=== PATIENT | female | born 1950 | race Caucasian/White ===

== ENCOUNTER 2024-08-28 12:53 | Outpatient (CLI) | payer MEDICARE, SELFPAY | END 2024-08-28 12:54 | disposition home or self-care (01) | LOC: AMB 08-31 09:22 | PROVIDERS: Visit Provider Family Medicine | DX: R55 Syncope and collapse (principal) | CPT/HCPCS: A0425; A0427 ==

== ENCOUNTER 2024-08-28 13:38 | Emergency (ER) | payer MEDICARE, SELFPAY ==
[2024-08-28] VITALS (25 sets, daily range): BP systolic 99–189; BP diastolic 87–122; PULSE 100–140; RESP 12–23; TEMP 36.6; O2SAT 93–100; BMI 25.8
--- NOTE | 2024-08-28 14:05 | ED.SYNCOPE ---
HPI - Syncope General Time Seen by Provider: 14:06 Date Seen: 08/28/24 Chief Complaint: Syncope/Fainted Stated Complaint: AFIB Time Seen by Provider: 08/28/24 14:05 Source: patient, EMS and RN notes reviewed Mode of arrival: EMS Limitations: no limitations History of Present Illness HPI narrative: This 73-year-old female is brought in by EMS after syncopal episodes. Patient was at a restaurant in leaving when she became syncopal, friends lowered her to the ground. EMS found the patient to be alert an oriented, no symptoms. When the assisted her to standing, she again became syncopal. She notes no symptoms, no chest pain no sense of palpitations, has no sense of any arrhythmia. On arrival to the ER she was in atrial fibrillation rate anywhere from 100-130. She denies any symptoms at rest, no lightheadedness, no shortness of breath, no palpitations or chest pains. She does state that she will get lightheaded and dizzy whenever she stands up, has had fainting spells from this prior in her history. She states it is worse now since they placed her on amlodipine. She is post to get an eye injection tomorrow. She has a history of central retinal vein occlusion with macular edema in her right eye, gets intravitreal injections. She is scheduled to get a knee replacement I believe she said next week at [facility]. Did review outside records and she has osteoarthritis of both knees, hypertensive chronic kidney disease, peripheral neuropathy. She also reports 1 episode years ago, maybe over 10 years ago of atrial fibrillation but this was accompanying a thyroid storm. She does not know what the underlying etiology of her thyroid problem was, does not know foot was Graves disease or Anna's thyroiditis but she states that she did get radioactive iodine ablation (presumably this is what she had done as she states they killed her thyroid). She is now on thyroid replacement. She has not been sick with anything that would cause GI losses for electrolyte imbalance, will drink occasional alcohol but nothing daily. Related Data Home Medications ?Medication ?Instructions ?Recorded ?Confirmed acetaminophen 325 mg capsule 1,300 mg PO DAILY PRN 08/28/24 08/28/24 amlodipine 5 mg tablet 5 mg PO DAILY 08/28/24 08/28/24 atorvastatin 20 mg tablet 20 mg PO DAILY 08/28/24 08/28/24 calcium carbonate (Antacid Ext Str 300 mg PO TID PRN 08/28/24 08/28/24 (calcium carb)) gabapentin 100 mg capsule 200 mg PO TID 08/28/24 08/28/24 lactase 3,000 unit tablet 3,000 unit PO QID PRN 08/28/24 08/28/24 levothyroxine 88 mcg capsule 88 mcg PO DAILY 08/28/24 08/28/24 lisinopril 40 mg tablet 40 mg PO DAILY 08/28/24 08/28/24 mecobalamin (vitamin B12) 1,000 1,000 mcg PO DAILY 08/28/24 08/28/24 mcg chewable tablet (B12 Active) Allergies Allergy/AdvReac Type Severity Reaction Status Date / Time amoxicillin Allergy Rash Verified 08/28/24 16:29 Review of Systems Status of ROS: Reports: 6 or more systems reviewed and unremarkable except as noted in History and below [facility] Medical History (Updated 08/28/24 @ 18:21 by Dania Ghotra MD) Osteoarthritis ?M19.90 - Unspecified osteoarthritis, unspecified site (ICD-10) Hypertension ?I10 - Essential (primary) hypertension (ICD-10) Central retinal vein occlusion of right eye ?H34.8112 - Central retinal vein occlusion, right eye, stable (ICD-10) Social History Smoking Status: Unknown if ever smoked Exam Const: Vital Signs, click to edit/add: Vital Signs - 24 hr 08/28/24 13:51 08/28/24 13:52 08/28/24 13:58 Temperature 97.9 F Pulse Rate 139 H 140 H Pulse Rate [Pulse Oximeter] 120 H Pulse Rate [orthos tatic lying Left P ulse Oximeter] Pulse Rate [orthos tatic sitting Left Pulse Oximeter] Pulse Rate [orthos tatic standing Lef t Pulse Oximeter] Respiratory Rate 23 18 Blood Pressure Blood Pressure [Ri ght Upper Arm] 189/88 H Blood Pressure [or thostatic lying Ri ght Arm] Blood Pressure [or thostatic sitting Right Arm] Blood Pressure [or thostatic standing Right Arm] Pulse Oximetry 100 99 98 Oxygen Delivery Me thod Room Air 08/28/24 14:00 08/28/24 14:02 08/28/24 14:15 Temperature Pulse Rate 114 H 131 H Pulse Rate [Pulse Oximeter] Pulse Rate [orthos tatic lying Left P ulse Oximeter] Pulse Rate [orthos tatic sitting Left Pulse Oximeter] Pulse Rate [orthos tatic standing Lef t Pulse Oximeter] Respiratory Rate 16 Blood Pressure Blood Pressure [Ri ght Upper Arm] Blood Pressure [or thostatic lying Ri ght Arm] Blood Pressure [or thostatic sitting Right Arm] Blood Pressure [or thostatic standing Right Arm] Pulse Oximetry 98 97 98 Oxygen Delivery Me thod 08/28/24 14:15 08/28/24 14:39 08/28/24 14:45 Temperature Pulse Rate 133 H 125 H 116 H Pulse Rate [Pulse Oximeter] Pulse Rate [orthos tatic lying Left P ulse Oximeter] Pulse Rate [orthos tatic sitting Left Pulse Oximeter] Pulse Rate [orthos tatic standing Lef t Pulse Oximeter] Respiratory Rate 13 23 Blood Pressure Blood Pressure [Ri ght Upper Arm] Blood Pressure [or thostatic lying Ri ght Arm] Blood Pressure [or thostatic sitting Right Arm] Blood Pressure [or thostatic standing Right Arm] Pulse Oximetry 98 98 94 Oxygen Delivery Me thod 08/28/24 14:46 08/28/24 15:02 08/28/24 15:15 Temperature Pulse Rate 119 H 128 H 121 H Pulse Rate [Pulse Oximeter] Pulse Rate [orthos tatic lying Left P ulse Oximeter] Pulse Rate [orthos tatic sitting Left Pulse Oximeter] Pulse Rate [orthos tatic standing Lef t Pulse Oximeter] Respiratory Rate 18 15 14 Blood Pressure 99/87 113/87 Blood Pressure [Ri ght Upper Arm] Blood Pressure [or thostatic lying Ri ght Arm] Blood Pressure [or thostatic sitting Right Arm] Blood Pressure [or thostatic standing Right Arm] Pulse Oximetry 97 97 97 Oxygen Delivery Me thod Room Air 08/28/24 15:32 08/28/24 15:55 08/28/24 15:58 Temperature Pulse Rate 118 H Pulse Rate [Pulse Oximeter] Pulse Rate [orthos tatic lying Left P ulse Oximeter] 129 H Pulse Rate [orthos tatic sitting Left Pulse Oximeter] 136 H Pulse Rate [orthos tatic standing Lef t Pulse Oximeter] Respiratory Rate 13 Blood Pressure 132/99 H Blood Pressure [Ri ght Upper Arm] Blood Pressure [or thostatic lying Ri ght Arm] 132/102 H Blood Pressure [or thostatic sitting Right Arm] 135/107 H Blood Pressure [or thostatic standing Right Arm] Pulse Oximetry 98 Oxygen Delivery Me thod Room Air 08/28/24 16:00 08/28/24 16:02 08/28/24 16:32 Temperature Pulse Rate 135 H 123 H Pulse Rate [Pulse Oximeter] Pulse Rate [orthos tatic lying Left P ulse Oximeter] Pulse Rate [orthos tatic sitting Left Pulse Oximeter] Pulse Rate [orthos tatic standing Lef t Pulse Oximeter] 136 H Respiratory Rate 19 Blood Pressure 134/122 H 129/90 H Blood Pressure [Ri ght Upper Arm] Blood Pressure [or thostatic lying Ri ght Arm] Blood Pressure [or thostatic sitting Right Arm] Blood Pressure [or thostatic standing Right Arm] 119/93 H Pulse Oximetry 98 96 Oxygen Delivery Wy thod Room Air 08/28/24 17:02 08/28/24 17:32 08/28/24 18:02 Temperature Pulse Rate 108 H 123 H 111 H Pulse Rate [Pulse Oximeter] Pulse Rate [orthos tatic lying Left P ulse Oximeter] Pulse Rate [orthos tatic sitting Left Pulse Oximeter] Pulse Rate [orthos tatic standing Lef t Pulse Oximeter] Respiratory Rate 17 12 15 Blood Pressure 124/100 H 133/106 H 139/110 H Blood Pressure [Ri ght Upper Arm] Blood Pressure [or thostatic lying Ri ght Arm] Blood Pressure [or thostatic sitting Right Arm] Blood Pressure [or thostatic standing Right Arm] Pulse Oximetry 96 93 99 Oxygen Delivery Wy thod Room Air Room Air Room Air 08/28/24 18:10 08/28/24 18:11 08/28/24 18:32 Temperature Pulse Rate 107 H 111 H 100 Pulse Rate [Pulse Oximeter] Pulse Rate [orthos tatic lying Left P ulse Oximeter] Pulse Rate [orthos tatic sitting Left Pulse Oximeter] Pulse Rate [orthos tatic standing Lef t Pulse Oximeter] Respiratory Rate 12 18 Blood Pressure 138/121 H 130/117 H Blood Pressure [Ri ght Upper Arm] Blood Pressure [or thostatic lying Ri ght Arm] Blood Pressure [or thostatic sitting Right Arm] Blood Pressure [or thostatic standing Right Arm] Pulse Oximetry 98 98 99 Oxygen Delivery Wy thod Room Air Room Air 08/28/24 19:02 08/28/24 20:54 Temperature 97.9 F Pulse Rate 110 H Pulse Rate [Pulse Oximeter] 104 H Pulse Rate [orthos tatic lying Left P ulse Oximeter] Pulse Rate [orthos tatic sitting Left Pulse Oximeter] Pulse Rate [orthos tatic standing Lef t Pulse Oximeter] Respiratory Rate 14 18 Blood Pressure 131/96 H Blood Pressure [Ri ght Upper Arm] 140/108 H Blood Pressure [or thostatic lying Ri ght Arm] Blood Pressure [or thostatic sitting Right Arm] Blood Pressure [or thostatic standing Right Arm] Pulse Oximetry 97 96 Oxygen Delivery Me thod Room Air Room Air Amandeep is alert, interactive, no apparent distress. She is actually hypertensive and tachycardic on arrival. Pupils equal round reactive, sclera clear, extraocular muscles intact, symmetrical facial function, speech normal. Neck supple, no adenopathy, no noted jugular venous distension. She is able sit up, lungs are clear, good air entry, no wheezing or crackles, no tachypnea, no accessory muscle use. CV is irregular, rapid, do not hear any murmur. She is in atrial fibrillation with rapid ventricular response about 120s to 130s when I am in with her. Abdomen is soft, nontender, nondistended, no organomegaly. Moving arms and legs, no focal neurologic deficits noted. No edema noted over lower extremities. Documenting provider has reviewed patient's vital signs: yes Course Course ED Course: Patient will be on cardiac monitoring, pulse oximetry. She has an IV in the left antecubital fossa. Will give her L of IV fluids, give her a dose of 5 mg IV metoprolol. Will check full complement of labs come get portable chest x-ray but I see no physical stigmata of congestive heart failure at this time. She has no idea that she is in this rhythm, thus, we have no time frame for the length of her atrial fibrillation. Reviewed with her that she is not a candidate for cardioversion here. I do not think she requires this emergently. It sounds as if her syncope has been present in the form of potential orthostatic hypotension with getting up proceeding today. We did review that atrial fibrillation is a stroke risk and anticoagulation would be indicated. She does not want this as she is supposed to have an ortho pubic procedure with knee replacement coming up very shortly. I did review with her that they most certainly are not going to take her to surgery with atrial fibrillation with RVR. She does go through [facility], can talk to [facility] eventually. Reevaluation(s) Time of Reevaluation #1: 15:11 Reevaluation #1: Patient was just up to go to the bathroom, states she felt great. Back on cardiac monitoring after walking to and from the bathroom, patient's heart rate was up to 147. Again, she states she feels great. Will give oral dose of metoprolol 25 mg. Her heart rate is trending down quite quickly after getting back from the bathroom. Time of Reevaluation #2: 15:29 Reevaluation #2: Have reviewed with patient that her D-dimer is elevated. She is resting comfortably in bed in exam room 8, heart rate anywhere from low 100s up to 120s. She does agree to a chest CT PE protocol. Consultations Consultation #1: Have called triage center at [facility]. Spoke with Promise MAHARAJ. Patient has not established with Cardiology there before, reviewed with her that she now has a new diagnosis where she will need Cardiology. I do need to speak with the excavator backhoe operator. She gets her cares through [facility]. I have tried to press as much as I can that I need to speak with Cardiology and should be allowed to as this patient is well established there even is she has not required cardiology in the recent past. We are faxing EKG as she requested. 5:12 p.m.: I have spoken with Promise the RN at [facility], she has called me back. They were on Cardiology divert at [place]. She has spoken with the excavator backhoe operator at [facility], the excavator backhoe operator does accept the patient but has declined consult with me. They have vast staff to fax records and we will get a phone call from the hospitalist at [facility]. I subsequently did talk to the patient and expressed my sincere unhappiness with this situation. She will need transfer where her records are complete and Cardiology can be consulted. We reviewed her thyroid medication may need adjustment, will defer to them. 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 It is nonocclusive. I am going to wait to talk to the hospitalist from [facility] before anticoagulation and see their recommendations, hopefully the be able to look in the records and see about this I injection that needs to happen. Will await their input. Will give her another dose of oral metoprolol as her heart rate is still in the low 1 100s. Blood pressure is holding, she remains asymptomatic. 5:57 p.m.: [facility] transfer center did call back and I spoke with Dr. Sim from [facility]. Did review her case, he stated that she had a DVT in 2022 I believe, was on Xarelto. We discussed anticoagulation. He requested heparin tonight, did order the heparin PE protocol. We discussed her current vitals, heart rate is in the 80s currently, a systolic blood pressure 138. I will continue with p.r.n. management with metoprolol, did review her TSH and will let them follow up on that. I do not believe she needs any emergent intervention for this mildly elevated TSH, reviewed that a free T3 is a send out for us and thus with her transferring, will not be ordering that. Did subsequently review heparin with patient, reviewed plans for transfer. Time: 15:32 Vital Signs Vital signs: Initial Vital Signs Pulse Rate 139 H 08/28/24 13:51 Respiratory Rate 08/28/24 13:51 Pulse Oximetry 100 08/28/24 13:51 Vital Signs Pulse Rate 139 H 08/28/24 13:51 Respiratory Rate 23 08/28/24 13:51 Pulse Oximetry 100 08/28/24 13:51 Temperature 97.9 F 08/28/24 20:54 Pulse Rate 104 H 08/28/24 20:54 Respiratory Rate 18 08/28/24 20:54 Blood Pressure 140/108 H 08/28/24 20:54 Pulse Oximetry 96 08/28/24 20:54 Oxygen Delivery Method Room Air 08/28/24 20:54 Medications Administered Medications: Discontinued Medications Generic Name Dose Route Start Last Admin Trade Name Freq PRN Reason Stop Dose Admin Heparin Sodium (Porcine) 6,500 unit 08/28/24 18:03 08/28/24 19:05 Heparin 5,000 Unit/0.5 Ml Inj 80 unit/kg (6500 unit) 08/28/24 18:04 Not Given IVP ONCE ONE Heparin Sodium (Porcine) 7,300 unit 08/28/24 18:23 08/28/24 18:27 Heparin 5,000 Unit/0.5 Ml Inj 80 unit/kg (7300 unit) 08/28/24 18:24 7,300 unit IVP Administration ONCE ONE Sodium Chloride 1,000 mls @ 500 mls/hr 08/28/24 14:24 08/28/24 15:50 0.9 % Sodium Chloride 1000 Ml IV 08/28/24 16:23 Infused .Q2H BRANDIE Infusion Heparin Sodium/Dextrose 25,000 unit in 500 mls @ 0 mls/hr 08/28/24 18:30 08/28/24 18:26 Heparin IV 1,500 unit/hr .Q0M BRANDIE 30 mls/hr Protocol Administration Per Protocol Metoprolol Tartrate 5 mg 08/28/24 14:23 08/28/24 14:42 Metoprolol Tartrate 1 Mg/Ml Inj IVP 08/28/24 14:24 5 mg ONCE ONE Administration Metoprolol Tartrate 25 mg 08/28/24 15:11 08/28/24 15:16 Metoprolol Tartrate 25 Mg Tablet PO 08/28/24 15:12 25 mg ONCE ONE Administration Metoprolol Tartrate 5 mg 08/28/24 16:27 08/28/24 16:35 Metoprolol Tartrate 1 Mg/Ml Inj IVP 08/28/24 16:28 5 mg ONCE ONE Administration Metoprolol Tartrate 25 mg 08/28/24 17:28 08/28/24 18:02 Metoprolol Tartrate 25 Mg Tablet PO 08/28/24 17:29 25 mg ONCE ONE Administration MDM - Syncope Lab Data Attestation: I reviewed the patient's lab results. Labs: Lab Results 08/28/24 Range/Units 14:27 WBC 6.76 (4.50-11.00) K/uL RBC 4.39 (4.00-5.20) m/uL Hgb 14.2 (12.0-16.0) gm/dL Hct 44.3 (33.0-51.0) % MCV 101 H (80-100) fL MCH 32 (26-34) pg MCHC 32 (32-36) gm/dL RDW Coeff of Miladys 11.9 (11.5-15.5) % Plt Count 236 (140-440) K/uL Neut % (Auto) 66.9 (42.0-72.0) % Lymph % (Auto) 23.4 (20-44) % [place] % (Auto) 7.8 (0.0-11.0) % Eos % (Auto) 1.2 (0.0-7.0) % Baso % (Auto) 0.4 (0.0-3.0) % Neut # (Auto) 4.52 (1.7-7.0) K/uL Lymph # (Auto) 1.58 (0.90-2.90) K/uL [place] # (Auto) 0.50 (0.00-0.90) K/UL Eos # (Auto) 0.08 (0.00-0.50) K/uL Baso # (Auto) 0.03 (0.00-0.30) K/uL Abs Immat Gran (auto) 0.02 (0.00-0.30) K/uL Imm/Tot Granulo (auto) 0.3 % INR 1.05 (0.91-1.10) APTT 24 (23-33) Seconds D-Dimer Quant (PE/DVT) 1.75 H (0.00-0.50) ug/ml Sodium 142 (135-149) mmol/L Potassium 4.4 (3.6-5.1) mmol/L Chloride 108 (96-114) mmol/L Carbon Dioxide 25 (20-32) mmol/L Anion Gap 9 (7-15) mEq/L BUN 19 (7-30) mg/dL Creatinine 1.0 (0.5-1.5) mg/dL Estimated Creat Clear 53.37 Estimated GFR 59 ml/min Glucose 115 (60-115) mg/dL Lactate 1.7 (0.5-1.9) mmol/L Calcium 9.6 (8.4-10.6) mg/dL Magnesium 2.2 (1.5-2.6) mg/dL Total Bilirubin 0.7 (0.1-1.5) mg/dL AST 35 (12-35) U/L ALT 15 (4-35) U/L Alkaline Phosphatase 61 (40-150) U/L Troponin I 0.02 (0.01-0.04) ng/mL NT-Pro-B Natriuret Pep 3690 pg/mL Total Protein 7.5 (6.0-8.3) g/dL Albumin 4.4 (3.3-5.0) g/dL TSH 0.188 L (0.270-4.200) uIU/mL Free T4 1.43 (0.70-1.85) ng/dL Ethyl Alcohol < 0.01 (0.01-0.03) % Imaging Data Chest x-ray: Attestation: I have reviewed the pertinent imaging results. My impression: I do not appreciate any acute congestive changes on my preliminary review. Radiologist's impression: Patient: AMANDEEP HARPER Facility:?[facility] Patient ID:?[id number] Site Patient ID:?[id number]. Site :?1950 Study:?XRay-Chest PORTABLE-08/28/2024 2:54:04 PM Ordering Physician:Azul Najera Final Report: INDICATION: : AFIB WITH RVR COMPARISON: None TECHNIQUE: One view(s) of the chest FINDINGS: The cardiomediastinal silhouette and pulmonary vasculature are unremarkable. There is no focal airspace consolidation, pleural effusion, or pneumothorax. No displaced fractures. IMPRESSION: No acute cardiopulmonary process. Dictated by Geronimo Soto MD @ 08/28/2024 3:00:55 PM (Electronic Signature) CT scan - head: Attestation: I have reviewed the pertinent imaging results. Radiologist's impression: Patient: AMANDEEP HARPER Facility:?[facility] Patient ID:?[id number] Site Patient ID:?[id number]. Site :?1950 Study:?CT-Head WITHOUT-08/28/2024 2:47:52 PM Ordering Physician:?DR. DUNN Final Report: INDICATION: SYNCOPE TECHNIQUE: CT of the head was performed without IV contrast. COMPARISON: None. FINDINGS: Parenchyma: No acute hemorrhage, infarction, or mass. Moderate confluent periventricular white matter hypoattenuation is nonspecific and is favored to represent chronic small vessel ischemic disease. Chronic appearing bilateral basal ganglia lacunar infarcts. Ventricles and extra-axial spaces: Appropriate for age. Visualized paranasal sinuses: Clear. Mastoid air cells: Clear. Bones: No focal abnormality. Additional comment: None. IMPRESSION: No acute intracranial abnormality. Please note that all CT scans at this facility use dose modulation, iterative reconstruction, and/or weight-based dosing when appropriate to reduce radiation dose to as low as reasonably achievable. Dictated by Hilton Rojas MD @ 08/28/2024 3:01:15 PM (Electronic Signature) CT scan - chest: Attestation: I have reviewed the pertinent imaging results. Radiologist's impression: Patient: AMANDEEP HARPER Facility:?[facility] Patient ID:?[id number] Site Patient ID:?[id number]. Site :?1950 Study:?CT-Chest Angio PE 95CC ISOVUE 370-08/28/2024 4:02:30 PM Ordering Physician:Azul Najera Final Report: INDICATION: Syncope. Elevated D-dimer. Atrial fibrillation. TECHNIQUE: CT chest pulmonary angiogram acquired with 95 cc of Isovue 370 IV contrast. Sagittal, coronal and maximum intensity projection reformatted images submitted for review. COMPARISON: None. FINDINGS: Cardiovascular structures: Small amount of subsegmental nonocclusive right lower lobe pulmonary embolus, for example on axial image 133 of series 4. Aortic atherosclerosis and tortuosity. Thoracic aorta is normal in caliber. Coronary artery calcifications. Heart size is within normal limits. Mediastinum and belinda: No pathologic lymphadenopathy. Lungs: No pneumothorax. Central airways are patent. Posterior right lower lobe 12 mm nodular density on image 167 of series 4. Bibasilar scarring or atelectasis. Lungs otherwise clear. Pleura and pericardium: No effusions. Chest wall and axilla: Unremarkable. Bones: Degenerative changes. No acute or suspicious osseous abnormality. Upper abdomen: Diverticulosis of the visualized colon. Visualized upper abdomen is otherwise unremarkable. IMPRESSION: 1. Small amount of subsegmental right lower lobe pulmonary embolus. 2. Right lower lobe 12 mm nodule should be further evaluated with chest CT in [address] Morales by telephone at 4:33 p.m. on 08/28/2024. Dictated by Wilber Barrientos MD @ 08/28/2024 4:35:06 PM Please note that all CT scans at this facility use dose modulation, iterative reconstruction, and/or weight-based dosing when appropriate to reduce radiation dose to as low as reasonably achievable. Dictated by: Wilber Barrientos MD @ 08/28/2024 16:35:35 (Electronic Signature) ECG Data Attestation: I personally reviewed and interpreted this ECG as follows: (Atrial fibrillation with rapid ventricular response, 124 beats per minute. No active ischemic change noted.) ECG interpretation date: 08/28/24 ECG interpretation time: 13:55 Prior ECG tracings: not available for review Discharge Plan Discharge Clinical Impression: Pulmonary embolism, Atrial fibrillation with rapid ventricular response, Syncope Patient Disposition: [facility] Additional Instructions: Patient transferring to [facility]
--- NOTE | 2024-08-28 14:15 | CT_ITS ---
Patient: AMANDEEP HARPER Facility:?[facility] Patient ID:?[id number] Site Patient ID:?[id number]. Site :?1950 Study:?CT-Head WITHOUT-08/28/2024 2:47:52 PM Ordering Physician:?DR. DUNN Final Report: INDICATION: SYNCOPE TECHNIQUE: CT of the head was performed without IV contrast. COMPARISON: None. FINDINGS: Parenchyma: No acute hemorrhage, infarction, or mass. Moderate confluent periventricular white matter hypoattenuation is nonspecific and is favored to represent chronic small vessel ischemic disease. Chronic appearing bilateral basal ganglia lacunar infarcts. Ventricles and extra-axial spaces: Appropriate for age. Visualized paranasal sinuses: Clear. Mastoid air cells: Clear. Bones: No focal abnormality. Additional comment: None. IMPRESSION: No acute intracranial abnormality. Please note that all CT scans at this facility use dose modulation, iterative reconstruction, and/or weight-based dosing when appropriate to reduce radiation dose to as low as reasonably achievable. Dictated by Hilton Rojas MD @ 08/28/2024 3:01:15 PM Signed by:?Hilton Rojas MD @08/28/2024 3:01:15 PM (Electronic Signature)
--- NOTE | 2024-08-28 14:15 | CRLHL7_ITS ---
For Patients: As a result of the Cures Act, medical imaging exams and procedure reports are released immediately into your electronic medical record. You may view this report before your referring provider. If you have questions, please contact your health care provider. INDICATION: : AFIB WITH RVR COMPARISON: None TECHNIQUE: One view(s) of the chest FINDINGS: The cardiomediastinal silhouette and pulmonary vasculature are unremarkable. There is no focal airspace consolidation, pleural effusion, or pneumothorax. No displaced fractures. IMPRESSION: No acute cardiopulmonary process. Dictated by Geronimo Soto MD @ 08/28/2024 3:00:55 PM (Electronically Signed)
[2024-08-28 14:35] LABS: Lactate* 1.7 mmol/L (0.5-1.9)
[2024-08-28] MEDS: METOPROLOL TARTRATE 1 MG/ML inj 5 MG IVP ×2 (14:42→16:35)
[2024-08-28] MEDS: 0.9 % SODIUM CHLORIDE 1000 ml 1,000 ML 500 ML IV (14:42)
--- OUTSIDE RECORDS SUMMARY | 2024-08-28 14:42 | XMS_ITS | Encounter Summary ---
Author Organization [facility] Address [address] [place] [address] Care Team Prov[address] Care Road Machine Operator Name Role Phone Qian Carias M.D. Primary Care Provider [phone] Reason for Referral * Physical Therapy (Routine) - Authorized Specialty Diagnoses / Procedures Referred By Contac t Referred To Contact Diagnoses Primary Osteoarthritis Knee Right Procedures PT Evaluate and treat Savanna Hough P.A.-C., P.A. [address] [place] [address] Phone: tel: fax: [facility] Region Referral ID Status Reason Start Date Expiration Date V isits Requested Visits Authorized [id number] Authorized 07/18/2024 10/18/2025 1 1 * Outpatient (Routine) - Authorized Specialty Diagnoses / Procedures Referred By Contac t Referred To Contact Anesthesiology Diagnoses Primary Osteoarthritis Knee Right Savanna Hough P.A.-C., P.A. [address] [place] [address] Phone: tel: fax: [facility] Region Referral ID Status Reason Start Date Expiration Date V isits Requested Visits Authorized [id number] Authorized 07/18/2024 01/17/2026 1 1 * Outpatient (Routine) - Closed Specialty Diagnoses / Procedures Referred By Contac t Referred To Contact Family Medicine Diagnoses Primary Osteoarthritis Knee Right Savanna Hough P.A.-C., P.A. [address] [place] [address] Phone: tel: fax: [facility] Region Referral ID Status Reason Start Date Expiration Date Visits Re quested Visits Authorized [id number] Closed 07/18/2024 01/17/2026 1 1 * Outpatient (Routine) - Authorized Specialty Diagnoses / Procedures Referred By Contac t Referred To Contact Orthopedic Surgery Savanna Hough P.A.-C., P.A. [address] [place] [address] Phone: tel: fax: [facility] Region Referral ID Status Reason Start Date Expiration Date V isits Requested Visits Authorized [id number] Authorized 07/18/2024 01/17/2026 1 1 * Specialty Diagnoses / Procedures Referred By Contac t Referred To Contact Diagnoses Primary Osteoarthritis Knee Right Savanna Hough P.A.-C., P.A. [address] [place] [address] Phone: tel: fax: [facility] Region Referral ID Status Reason Start Date Expiration Date Visits Re quested Visits Authorized Scheduling Instructions Anticipated Surgery Date is 09/05/24. If schedulers are having a hard time finding class availability and/or patient needs an director of rehabilitation and wellness, call [phone] to assist with scheduling. Reason for Visit * Reason Comments Pain Pain * Outpatient (Routine) - Closed Specialty Diagnoses / Procedures Referred By Contdaksha t Referred To Contact Orthopedic Surgery Savanna Hough P.A.-C., P.A. [address] [place] [address] Phone: tel: fax: [facility] Region Referral ID Status Reason Start Date Expiration Date Visits Re quested Visits Authorized [id number] Closed 04/18/2024 10/18/2025 1 1 Encounter Details Date Type Department Care Team (Late st Contact Info) Description 07/18/2024 11:00 AM CDT Office Visit Department of Orthopedic Surgery in [place], [place] [address] [place] [phone] Savanna Hough P.A.-C., P.A. [address] [place] [address] Primary Osteoarthritis Knee Right (Primary Dx); Primary Osteoarthritis Knee Left Discharge Disposition: Home or Self Care Social History Tobacco Use Types Packs/Day Years Used Date Smoking Tobacco: Never Smokeless Tobacco: Never Tobacco Cessation:Counseling Given: Not Answered Alcohol Use Standard Drinks/Week Comments Yes 1 (1 standard drink = 0.6 oz pur e alcohol) 0-1/week [facility] Utilities Answer Date Recorded In the past 12 months has [employer], gas, oil, or water [employer] threatened to shut off services in your home? No 11/01/2023 Humiliation, Afraid, Rape, and Kick questionnair e Answer Date Recorded Within the last year, have y ou been afraid of your partner or ex-partner? No 11/16/2020 Within the last year, have y ou been humiliated or emotionally abused in other ways by your partner or ex-partner? No Within the last year, have y ou been kicked, hit, slapped, or otherwise physically hurt by your partner or ex-partner? No 11/16/2020 Within the last year, have y ou been raped or forced to have any kind of sexual activity by your partner or ex-partner? No 11/16/2020 Social Connection and Isolat ion Panel [NHANES] Answer Date Recorded In a typical week, how many times do you talk on the phone with family, friends, or neighbors? Once a week 11/16/2020 How often do you get togethe r with friends or relatives? More than three times a week 11/16/2020 How often do you attend chur or baptism services? More than 4 times per year 11/16/2020 Do you belong to any clubs o r organizations such as episcopal groups, unions, fraternal or athletic groups, or school groups? Yes 11/16/2020 How often do you attend meet ings of the clubs or organizations you belong to? Patient declined 11/16/2020 Are you , , di vorced, , never , or living with a partner? 11/16/2020 AUDIT-C Answer Date Recorded Q1: How often do you have a drink containing alc ohol? 2-4 times a month 11/16/2020 Q2: How many drinks containi ng alcohol do you have on a typical day when you are drinking? 1 or 2 11/16/2020 Q3: How often do you have si x or more drinks on one occasion? Never 11/16/2020 Overall Financial Resource Strain (CARDIA) Answe r Date Recorded How hard is it for you to pa y for the very basics like food, housing, medical care, and heating? Not hard at all 11/16/2020 PHQ-2 Answer Date Recorded PHQ-2 Score 0 07/08/2024 [facility] [place] of Occupat ional Health - Occupational Stress Questionnaire Answer Date Recorded Do you feel stress - tense, restless, nervous, or anxious, or unable to sleep at night because your mind is troubled all the time - these days? Not at all 11/16/2020 Exercise Vital Sign Answer Date Recorde d On average, how many days pe r week do you engage in moderate to strenuous exercise (like a brisk walk)? 3 days 11/01/2023 On average, how many minutes do you engage in exercise at this level? 30 min 11/01/2023 Hunger Vital Sign Answer Date Recorded Within the past 12 months, y ou worried that your food would run out before you got the money to buy more. Never true 11/01/19 Within the past 12 months, t he food you bought just didn't last and you didn't have money to get more. Never true 11/01/2023 PRAPARE - Transportation Answer Date Re corded In the past 12 months, has l ack of transportation kept you from medical appointments or from getting medications? No 10/11 In the past 12 months, has l ack of transportation kept you from meetings, work, or from getting things needed for daily living? No 11/01/2023 Nutrition Answer Date Recorded On average, how many serving s of fruits and vegetables do you eat per day (serving size is equal to 1 cup or approximately the size of a tennis ball)? 3-5 11/01/2023 Dental Answer Date Recorded Dental: Regular Dentist Yes 04/08/20 Employment Answer Date Recorded Employment status Retired 11/01/2023 Housing Stability Answer Date Recorded What is your living situation today? I have a [facility] place to live 11/01/2023 Education Answer Date Recorded What is the highest level of school you have completed or the highest degree you have received? Some college, no degree 11/07/2018 Comments No Sex and Gender Information Value Date Recorded Sex Assigned at Female 04/09/2017 3:29 PM FIRMWARE TEST ENGINEER Legal Sex Female 8:40 AM FIRMWARE TEST ENGINEER Gender Identity Female 04/09/2017 3:29 PM FIRMWARE TEST ENGINEER Sexual Orientation Straight 04/09/2017 3: 29 PM FIRMWARE TEST ENGINEER documented as of this encounter Progress Notes * Savanna Hough P.A.-Carmel., P.A. - 07/18/2024 11:00 AM CDT DATE OF VISIT: 07/18/2024 SUBJECTIVE CHIEF COMPLAINT / REASON FOR VISIT Soraya Alexandra is a 73 y.o. female who presents for evaluation of Pain of the Right Knee and Pain of the Left Knee. The patient verbally consented to an audio recording of their visit to assist with the completion of documentation. History of Present Illness Mrs. Soraya Alexandra is a 73 year old female with bilateral knee arthritis who presents with persistent knee pain. She is accompanied by her , Omar. She was referred by Dr. Hinojosa for evaluation of her knee arthritis. She experiences persistent pain in both knees, with the last set of injections providing only aboutthree weeks of relief. There is significant arthritis behind the kneecap, affecting daily activities such as walking and navigating stairs in her split-entry home. She has difficulty getting in and out of vehicles and rising from seated positions due to the low height of chairs and toilets, which exacerbates her knee pain. Historically, the right knee was worse, but currently, the left knee is causing more pain. Over time, the right knee has been more problematic. She manages symptoms with injections, but relief is short-lived due to worn cartilage behind the kneecap. She has a history of neuropathy and is concerned it might affect her recovery. She has upcoming neurology appointments on August 01 and August 15 for further evaluation, including EMGs. Additionally, she experiences sores on her legs that appear randomly and develop into deep sores ifbumped. These sores have been treated with hydrocolloid bandages, which help in healing without significant scarring. She recalls a previous surgery for a lipoma removal from her knee, which involved a large scar and significant recovery. She has had issues with pain control in the past, particularly with hydrocodone, which caused nausea and vomiting, but she tolerated oxycodone well during her lipoma surgery. OBJECTIVE VITAL SIGNS There were no vitals taken for this visit. Physical Exam Physical Exam MUSCULOSKELETAL: Right knee flexion 120 degrees, full extension. Pain with terminal flexion. No instability Left knee: Well healed long medial surgical scar. Maintains full flexion- extension with pain with terminal flexion and the anterior aspect of the knee varus and valgus stress negative no instability DIAGNOSTICS IMAGING X-rays reviewed with patient: 11/02/2023 RAD - Routine (most inpatients and all outpatients) Narrative & Impression EXAM: DX KNEE BILATERAL 3 VIEWS IMPRESSION: Right knee: No fracture or dislocation. Mild degenerative changes. No substantial effusion. Left knee: No fracture or dislocation. Mild degenerative changes. No substantial effusion ASSESSMENT / PLAN Bilateral knee osteoarthritis Significant patellar arthritis with advanced cartilage degeneration. Conservative treatments exhausted. Knee replacement surgery recommended. Explained risks including anesthesia complications, infection, damage to vessels, tendons, nerves, persistent pain, stiffness, hardware failure, and potential need for manipulation. Surgery duration with same-day discharge if healthy. Postoperative therapy recommended. Patient motivated for surgery with Dr. Hinojosa, right total knee arthroplasty - Schedule knee replacement surgery with Dr. Hinojosa. -We discussed the preoperative intraoperative and postoperative course. We discussed the risks of surgery which include but are not limited to infection, damage to vessels tendons and nerves resulting in temporary or permanent loss of function, ongoing problems with pain and stiffness, recurrence, scar tissue formation, failure of surgery requiring repeat surgery. -We discussed the risks of anesthesia which include but are not limited to heart attack, , stroke, pneumonia, blood clots. Patient expresses understanding and wishes to proceed with surgery.- - She has an EMG and some ABIs pending and depending on those results might change her surgery date. We will await recommendations by primary care. - Use oxycodone for postoperative pain management, considering past tolerance. Peripheral neuropathy Affects sensation without significant gait or motor issues. Not expected to affect knee surgery recovery. Upcoming neurology appointments for further evaluation. - Attend neurology appointments on August 01 and August 15 for further evaluation of neuropathy. Leg sores Intermittent sores currently healed. Potential circulation issues require investigation before kneesurgery. - Investigate circulation issues with potential brachial arterial indices before knee replacement surgery. Assessment & Plan Bilateral knee osteoarthritis Significant patellar arthritis with advanced cartilage degeneration. Conservative treatments exhausted. Knee replacement surgery recommended. Explained risks including anesthesia complications, infection, damage to vessels, tendons, nerves, persistent pain, stiffness, hardware failure, and potential need for manipulation. Surgery duration 90 minutes with same-day discharge if healthy. Postoperative therapy crucial. Patient motivated for surgery with Dr. Hinojosa. - Schedule knee replacement surgery with Dr. Hinojosa. - Arrange postoperative physical therapy 1-2 times weekly. - Use oxycodone for postoperative pain management, considering past tolerance. Peripheral neuropathy Affects sensation without significant gait or motor issues. Not expected to affect knee surgery recovery. Upcoming neurology appointments for further evaluation. - Attend neurology appointments on August 01 and August 15 for further evaluation of neuropathy. Leg sores Intermittent sores currently healed. Potential circulation issues require investigation before kneesurgery. - Investigate circulation issues with potential brachial arterial indices before knee replacement surgery. :[id number]:::1} documented in this encounter Plan of Treatment Upcoming Encounters Date Type Department Care Team (Latest Contact Info) Description 08/29/2024 10:45 AM CDT Virtual Visit Preoperative Evaluation Center in [address] [phone] Savanna Hough P.A.-C., P.A. [address] [place] [phone] Discharge Disposition: Home or Self Care 08/29/2024 3:40 PM CDT Ancillary Procedure Department of Ophthalmology in [place], [place] [address] [place] [address] 08/29/2024 4:00 PM CDT Hospital Encounter Outpatient Procedure Center in [place], [place] [address] [place] [address] Rohan Pleitez M.D. [address] [place] [phone] 08/30/2024 3:00 PM CDT Telemedicine Department of Patient Education in [place], [place] [address] [place] [address] Savanna Hough P.A.-C., P.A. [address] [place] [phone] 09/05/2024 7:30 AM CDT Hospital Encounter Outpatient Procedure Center in [address] [phone] Adrian Hinojosa D.O. [address] [place] [address] 09/05/2024 7:30 AM CDT Anesthesia Event Outpatient Procedure Center in [address] [phone] Radha Crawford M.D. [address] [place] [phone] 09/05/2024 7:30 AM CDT - 09/05/2024 9:53 AM CDT Surgery Outpatient Procedure Center in [address] [phone] Adrian Hinojosa D.O. [address] [place] [phone] ARTHROPLASTY REPLACEMENT TOTAL KNEE 09/11/2024 12:30 PM CDT Comprehensive Visit Department of Physical Medicine and Rehabilitation in [address] [place] [address] Savanna Hough P.A.-C., P.A. [address] [place] [phone] Keke Alexandra, P.TJovany [address] [place] [phone] 09/18/2024 10:00 AM CDT Office Visit Department of Orthopedic Surgery in [address] [phone] Savanna Hough P.A.-C., P.A. [address] [place] [phone] Discharge Disposition: Home or Self Care 09/28/2024 11:00 AM CDT Appointment Outpatient Procedure Center in [address] [phone] Rohan Pleitez M.D. [address] [place] [address] 11/03/2024 9:20 AM CDT Appointment Department of Laboratory Medicine in [place] [address] [place] [address] Qian Carias M.D. [address] [place] [address] 11/06/2024 2:40 PM CDT Comprehensive Visit Department of Family Medicine, [facility], in [place] [address] [place] [address] Qian Carias M.D. [address] [place] [address] 11/22/2024 1:30 PM CDT Comprehensive Visit Department of Neurology in [place], [place] [address] [place] [phone] Stuart Bernabe M.D. [address] [place] [address] Scheduled Procedures Name Priority Associated Diagnoses Date/Ti me ARTHROPLASTY REPLACEMENT TOTAL KNEE Primary Osteoarthritis Knee Right 09/05/2024 7:30 AM CDT Scheduled Referrals Name Type Priority Associated Diagnoses Orde r Schedule Patient Education - Total Joint (Hip or Knee) Replacement Education Visit (Clinic) Outpatient Referral Routine Primary Osteoarthritis Knee Right Expected: 07/18/2024, Expires: 10/17/2025 Orthopedic Surgery Post Op (clinic) Outpatient Referral Routine Expected: 09/19/2024, Expires: 08/02/2025 Primary Care - [facility] consult (clinic) Outpatient Referral Routine Primary Osteoarthritis Knee Right 1 Occurrences starting 07/18/2024 until 10/17/2025 Pre Operative Evaluation [facility] nurse consult (clinic) Outpatient Referral Routine Primary Osteoarthritis Knee Right 1 Occurrences starting 07/18/2024 until 10/17/2025 documented as of this encounter Visit Diagnoses Diagnosis Primary Osteoarthritis Knee Right- Primary Primary Osteoarthritis Knee Left Primary Osteoarthritis Knee Right- Primary Primary Osteoarthritis Knee Right documented in this encounter Care Teams Road Machine Operator Relationship Specialty Start Date End Date Qian Carias M.D. [address] [place] [phone] PCP - General Internal Medicine 12/28/17 documented as of this encounter
--- OUTSIDE RECORDS SUMMARY | 2024-08-28 14:42 | XMS_ITS | Encounter Summary ---
Author Organization [facility] Address [address] [place] [address] Care Team Providers Care Casket Upholsterer Name Role Phone Qian Carias M.D. Primary Care Provider [phone] Encounter Details Date Type Department Care Team (Latest Contact Info) Description 07/17/2024 Results Follow-Up Department of Family Medicine, [facility], in [place], [place] [address] [place] [address] Post, Mark Scott APRN, C.N.P. [address] [place] [phone] ECG 12 Lead, CBC with Differential, Blood, Comprehensive Metabolic Panel, Additional followed-up results: 9 Social History Tobacco Use Types Packs/Day Years Used Date Smoking Tobacco: Never Smokeless Tobacco: Never Alcohol Use Standard Drinks/Week Comments Yes 1 (1 standard drink = 0.6 oz pur e alcohol) 0-1/week [facility] Utilities Answer Date Recorded In the past 12 months has [employer], gas, oil, or water company threatened to shut off services in your [...] How often do you attend chur or buddhism services? More than 4 times per year 11/16/2020 Do you belong to any clubs o r organizations such as zoroastrian groups, unions, fraternal or athletic groups, or [...] Answer Date Recorded PHQ-2 Score 0 07/08/2024 [facility] [place] of Occupat ional Health - Occupational Stress [...] your living situation today? I have a [facility] place to live 11/01/2023 Education Answer Date Recorded What is the highest level of school you have completed or the highest degree you have received? Some college, no degree 11/07/2018 Comments No Sex and Gender Information Value Date Recorded Sex Assigned at Female 04/09/2017 3:29 PM TECHNOLOGY TRAINER Legal Sex Female 8:40 AM TECHNOLOGY TRAINER Gender Identity Female 04/09/2017 3:29 PM TECHNOLOGY TRAINER Sexual Orientation Straight 04/09/2017 3: 29 PM TECHNOLOGY TRAINER documented as of this encounter Plan of Treatment Upcoming Encounters Date Type Department Care Team (Latest Contact Info) Description 08/29/2024 10:45 AM CDT Virtual Visit Preoperative Evaluation Center in [address] [phone] Savanna Hough P.A.-C., P.A. [address] [place] [phone] Discharge Disposition: Home or Self Care 08/29/2024 3:40 PM CDT Ancillary Procedure Department of Ophthalmology in [place], [place] [address] [place] [address] 08/29/2024 4:00 PM CDT Hospital Encounter Outpatient Procedure Center in [place], [place] [address] [place] [address] Rohan Pleitez M.D. [address] [place] [phone] 08/30/2024 3:00 PM CDT Telemedicine Department of Patient Education in [place], [place] [address] [place] [phone] Savanna Hough P.A.-C., P.A. [address] [place] [phone] 09/05/2024 7:30 AM CDT Hospital Encounter Outpatient Procedure Center in [address] [phone] Adrian Hinojosa D.O. [address] [place] [phone] 09/05/2024 7:30 AM CDT Anesthesia Event Outpatient Procedure Center in [address] [phone] Radha Crawford M.D. [address] [place] [phone] 09/05/2024 7:30 AM CDT - 09/05/2024 9:53 AM CDT Surgery Outpatient Procedure Center in [address] [phone] Adrian Hinojosa D.O. [address] [place] [address] ARTHROPLASTY REPLACEMENT TOTAL KNEE 09/11/2024 12:30 PM CDT Comprehensive Visit Department of Physical Medicine and Rehabilitation in [place] [address] [place] [address] Savanna Hough P.A.-C., P.A. [address] [place] [phone] Keke Alexandra, P.T. [address] [place] [phone] 09/18/2024 10:00 AM CDT Office Visit Department of Orthopedic Surgery in [place], [place] [address] [place] [phone] Savanna Hough P.A.-C., P.A. [address] [place] [phone] Discharge Disposition: Home or Self Care 09/28/2024 11:00 AM CDT Appointment Outpatient Procedure Center in [address] [phone] Rohan Pleitez M.D. [address] [place] [address] 11/03/2024 9:20 AM CDT Appointment Department of Laboratory Medicine in [place], [place] [address] [place] [phone] Qian Carias M.D. [address] [place] [phone] 11/06/2024 2:40 PM CDT Comprehensive Visit Department of Family Medicine, [facility], in [address] [place] [address] Qian Carias M.D. [address] [place] [phone] 11/22/2024 1:30 PM CDT Comprehensive Visit Department of Neurology in [place], [place] [address] [place] [phone] Stuart Bernabe M.D. [address] [place] [phone] Scheduled Procedures Name Priority Associated Diagnoses Date/Ti me ARTHROPLASTY REPLACEMENT TOTAL KNEE Primary Osteoarthritis Knee Right 09/05/2024 7:30 AM CDT documented as of this encounter Visit Diagnoses Not on filedocumented in this encounter Care Teams Casket Upholsterer Relationship Specialty Start Date End Date Qian Carias M.D. [address] [place] [phone] PCP - General Internal Medicine 12/28/17 documented as of this encounter
--- OUTSIDE RECORDS SUMMARY | 2024-08-28 14:42 | XMS_ITS | Encounter Summary ---
Author Organization [facility] Address [address] [place] [address] Care Team Providers Care [employer] Manager Name Role Phone Qian Carias M.D. Primary Care Provider [phone] Encounter Details Date Type Department Care Team (Latest Contact Info) Description 06/30/2024 Clinical Communication Department of Ophthalmology in [place], [place] [address] [place] [address] Rohan Pleitez M.D. [address] [place] [phone] Social History Tobacco Use Types Packs/Day Years Used Date Smoking Tobacco: Never Smokeless Tobacco: Never Alcohol Use Standard Drinks/Week Comments Yes 1 (1 standard drink = 0.6 oz pur e alcohol) 0-1/week [facility] Utilities Answer Date Recorded In the past [address], gas, oil, or water [employer] threatened to shut off services in your [...] How often do you attend chur or mandaeism services? More than 4 times per year 11/16/2020 Do you belong to any clubs o r organizations such as protestant groups, unions, fraternal or athletic groups, or [...] Answer Date Recorded PHQ-2 Score 0 07/08/2024 [facility] [place] [facility] Occupat ional [facility] - Occupational Stress [...] money to buy more. Never true 11/01/19 24 Within the past 12 months, t he [...] your living situation today? I have a [facility] place to live 11/01/2023 Education Answer Date Recorded What is the highest level of school you have completed or the highest degree you have received? Some college, no degree 11/07/2018 Comments No Sex and Gender Information Value Date Recorded Sex Assigned at Female 04/09/2017 3:29 PM [employer] Legal Sex Female 8:40 AM [employer] Gender Identity Female 04/09/2017 3:29 PM [employer] Sexual Orientation Straight 04/09/2017 3: 29 PM [employer] documented as of this encounter Plan of Treatment Upcoming Encounters Date Type Department Care Team (Latest Contact Info) Description 08/29/2024 10:45 AM CDT Virtual Visit Preoperative Evaluation Center in [place], [place] [address] [place] [phone] Savanna Hough P.A.-C., P.A. [address] [place] [phone] Discharge Disposition: Home or Self Care 08/29/2024 3:40 PM CDT Ancillary Procedure Department of Ophthalmology in [place], [place] [address] [place] [address] 08/29/2024 4:00 PM CDT Hospital Encounter Outpatient Procedure Center in [place], [place] [address] [place] [address] Rohan Pleitez M.D. [address] [place] [phone] 08/30/2024 3:00 PM CDT Telemedicine Department of Patient Education in [place], [place] [address] [place] [phone] Savanna Hough P.A.-C., P.A. [address] [place] [phone] 09/05/2024 7:30 AM CDT Hospital Encounter Outpatient Procedure Center in [address] [phone] Adrian Hinojosa D.O. [address] [place] [address] [phone] 09/05/2024 7:30 AM CDT Anesthesia Event Outpatient Procedure Center in [address] [phone] Radha Crawford M.D. [address] [place] [phone] 09/05/2024 7:30 AM CDT - 09/05/2024 9:53 AM CDT Surgery Outpatient Procedure Center in [address] [phone] Adrian Hinojosa D.O. [address] [place] [phone] ARTHROPLASTY REPLACEMENT TOTAL KNEE 09/11/2024 12:30 PM CDT Comprehensive Visit Department of Physical Medicine and Rehabilitation in [place] [address] [place] [phone] Svaanna Hough P.A.-C., P.A. [address] [place] [phone] Keke Alexandra P.TJovany [address] [place] [phone] 09/18/2024 10:00 AM CDT Office Visit Department of Orthopedic Surgery in [address] [phone] Savanna Hough P.A.-C., P.A. [address] [place] [phone] Discharge Disposition: Home or Self Care 09/28/2024 11:00 AM CDT Appointment Outpatient Procedure Center in [address] [phone] Rohan Pleitez M.D. [address] [place] [phone] 11/03/2024 9:20 AM CDT Appointment Department of Laboratory Medicine in [place] [address] [place] [phone] Qian Carias M.D. [address] [place] [phone] 11/06/2024 2:40 PM CDT Comprehensive Visit Department of Family Medicine, [facility], in [place] [address] [place] [phone] Qian Carias M.D. [address] [place] [phone] 11/22/2024 1:30 PM CDT Comprehensive Visit Department of Neurology in [place], [place] [address] [place] [phone] Stuart Bernabe M.D. [address] [place] [phone] Scheduled Procedures Name Priority Associated Diagnoses Date/Ti me ARTHROPLASTY REPLACEMENT TOTAL KNEE Primary Osteoarthritis Knee Right 09/05/2024 7:30 AM CDT documented as of this encounter Visit Diagnoses Not on filedocumented in this encounter Care Teams [employer] Manager Relationship Specialty Start Date End Date Qian Carias M.D. [address] [place] [phone] PCP - General Internal Medicine 12/28/17 documented as of this encounter
--- OUTSIDE RECORDS SUMMARY | 2024-08-28 14:42 | XMS_ITS | Clinical Summary ---
Author Organization [facility] Address [address] [place] [address] Care Team Providers Care Apns Name Role Phone Qian Carias M.D. Primary Care Provider Source Comments Patient records contain information from all sites at [facility]. For routine questions regarding patient records, call [phone] during business hours, M-F 8:00 AM - 5:00 PM Central Time. Record requests for emergency care only can be directed to [phone] at any time.[facility] Allergies Active Allergy Reactions Criticality Noted Date Comments Amoxicillin Hives (Reselect Reaction) 06/24/2010 House Dust Mite Other (see comments) 10/31/2010 No reaction noted in Cerner Medications calcium carbonate (for_TUMS E-X) 750 mg (300 mg calcium) chewable tablet Chew 1 tablet daily as needed. Active acetaminophen (TYLENOL 8 HR) 650 mg ER tablet Take 1,300 mg by mouth daily as needed for pain. Active lactase (Lactaid) 3,000 Unit tablet Take 6,000 Units by mouth daily. Active lisinopriL 40 mg tabletIndication s:Hypertension And Chronic Kidney Disease Stage 3 (HCC) Take 1 tablet (40 mg total) by mouth daily. 90 tablet 3 4 Active gabapentin (Neurontin) 100 mg capsule Take 2 capsules (200 mg total) by mouth 3 (three) times a day. 540 capsule 3 4 Active atorvastatin (Lipitor) 20 mg tablet Take 1 tablet (20 mg total) by mouth daily. 90 tablet 3 4 Active levothyroxine 88 mcg tabletIndication s:Hypothyroidism Post Radio Iodine Take 1 tablet (88 mcg total) by mouth daily. 90 tablet 3 4 Active amLODIPine (Norvasc) 5 mg tabletIndication s:Hypertensive Chronic Kidney Disease With Stage 1 Through Stage 4 Chronic Kidney Disease, Or Unspecified Chronic Kidney Disease Take 1 tablet (5 mg total) by mouth daily. 90 tablet 3 5 Active cyanocobalamin (vitamin B-12) 1,000 mcg tablet Take 1,000 mcg by mouth daily. 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) 1 drop right eye As needed 07/31/2024 07/30/2025 Active balanced salt solution ophthalmic irrigation 30 mL (BSS)Indications:C entral Retinal Vein Occlusion With Macular Edema Right (HCC) 30 mL right eye As needed 07/31/2024 07/30/2025 Active carboxymethylcellu lose 1 % ophthalmic solution 1 drop (TheraTears)Indica tions: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) 1 drop right eye As needed 07/31/2024 07/30/2025 Active povidone-iodine 5 % ophthalmic solution 1 drop (Betadine)Indicati ons: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) 1 drop right eye As needed 07/31/2024 07/30/2025 Active proparacaine 0.5 % ophthalmic solution 1 drop (Alcaine)Indicatio ns: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) 1 drop right eye As needed 07/31/2024 07/30/2025 Active bevacizumab intraocular injection 1.25 mg (Avastin)Indicatio ns: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 Please review for accuracy Thrombosis Deep Vein Personal History 11/01/2023 Osteoporosis 11/01/2023 Overview (11/01/2023): T-score -2.6 at hip January 29, 2022. Alendronate recommended, patient declines for now. 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 Neuropathy Peripheral; Pain Leg Bilateral Discharge Disposition: Home or Self Care 08/08/2024 3:20 PM CDT Office Visit Department of Family Medicine, [facility], in [address] [place] [address] Qian Carias M.D. 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 Neuropathy Peripheral; Pain Leg Bilateral; Osteoporosis Discharge Disposition: Home or Self Care 08/01/2024 9:50 AM CDT - 08/01/2024 9:52 AM CDT Hospital Encounter Department of Radiology in [address] [phone] Jarred Steward APRN, C.N.P. Edema Pedal; Unspecified Open Wound Left Lower Leg Sequela; Unspecified Open Wound Right Lower Leg Sequela; Pain Leg Bilateral Discharge Disposition: Home or Self Care 07/31/2024 4:06 PM CDT - 07/31/2024 11:59 PM CDT Hospital Encounter Outpatient Procedure Center in [place], [place] [address] [place] [phone] Keyana Gimenez M.D. Discharge Disposition: Home or Self Care 07/31/2024 3:50 PM CDT - 07/31/2024 4:05 PM CDT Hospital Encounter Outpatient Procedure Center in [place], [place] [address] [place] [address] Rohan Pleitez M.D. 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 Intravitreal Injection, Pharmacologic Agent - OD - Right Eye 07/31/2024 Ancillary Procedure Department of Ophthalmology 07/27/2024 3:20 PM CDT Ancillary Procedure Department of Ophthalmology 07/27/2024 2:45 PM CDT Ancillary Procedure Department of Ophthalmology in [place], [place] [address] [place] [phone] Rohan Pleitez M.D. 07/27/2024 2:30 PM CDT Procedure visit Department of Ophthalmology in [place], [place] [address] [place] [phone] Rohan Pleitez M.D. Adelmann, Lavergne S, C.O.A. 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 Screening Mammogram Breast Cancer 07/18/2024 11:00 AM CDT Office Visit Department of Orthopedic Surgery in [address] [phone] Savanna Hough P.A.-C., P.A. Primary Osteoarthritis Knee Right (Primary Dx); Primary Osteoarthritis Knee Left Discharge Disposition: Home or Self Care 07/18/2024 Clinical Communication Department of Orthopedic Surgery in [address] [phone] Savanna Hough P.A.-C., P.A. Surgical Listing (Ortho ) 07/17/2024 Results Follow-Up Department of [facility] Medicine, [facility], in [place] [address] [place] [phone] Post, Jarred Scott APRN, C.N.P. ECG 12 Lead, CBC with Differential, Blood, Comprehensive Metabolic Panel, Additional followed-up results: 9 07/13/2024 11:30 AM CDT Office Visit Department of Family Medicine, [facility], in [place] [address] [place] [phone] Post, Jarred Scott APRN, C.N.P. Neuropathy Peripheral (Primary Dx); Hypertensive Chronic Kidney Disease With Stage 1 Through Stage 4 Chronic Kidney Disease, Or Unspecified Chronic Kidney Disease; Syncope; Edema Pedal; Unspecified Open Wound Left Lower Leg Sequela; Unspecified Open Wound Right Lower Leg Sequela; Pain Leg Bilateral; Osteoporosis Discharge Disposition: Home or Self Care 06/30/2024 8:45 AM CDT Office Visit Department of Ophthalmology in [address] [phone] Sacha Suárez M.D. 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 06/30/2024 Orders Only Department of Ophthalmology in [address] [phone] Rohan Pleitez M.D. 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 06/29/2024 10:18 AM CDT - 06/29/2024 11:58 AM CDT Emergency [facility] [address] [place] [address] Madan Moore M.D. Disturbance Visual (Primary Dx); Blurred Vision Discharge Disposition: Home or Self Care from Last 3 Months Immunizations Immunization Administration Dates Next Due PCV13 11/07/2018 PPSV23 11/19/2020,(Deferred: Patient decision) RZV (SHINGRIX) 11/19/2020(Deferred: Patient dec ision) SARS-COV-2 (COVID-19) - MODERNA(Discontinued) 02/27/2021,07/16/2020,06/13/2020 SARS-COV-2 (COVID-19) - PFIZ ER BIVALENT TS(Discontinued)(12 YEARS OR OLDER) 01/26/2022 Td (Adult), adsorbed 11/25/2007 Td Preservative Free (TENIVA C, DECAVAC) 04/12/2003 Tdap 10/08/2016 influenza trivalent high dos e (HD)(PF) 11/19/2020(Deferred: Patient decision) Family History Medical History Relation Name Comments Lung cancer Aunt maternal COPD Brother 1 Sheldon Coronary artery disease Brother 1 Sheldon Tobacco user Brother 1 Sheldon CABG - Coronary artery bypass graft Brother 2 Carlos No Known Problems Brother 3 Arthritis Father Amanuel Coronary artery disease Father Amanuel at 70 Arthritis Mother Kaylynn Briceno Asthma Mother Kaylynn Kaity Coronary artery disease Mother Kaylynn Briceno No Known Problems Sister 1 No Known Problems Sister 2 No Known Problems Sister 3 Melanoma Son 1 Linus No Known Problems Son 2 Melanoma Son 3 Gaudencio Lung cancer Uncle maternal Anesthesia problems Neg Hx Cataracts Neg Hx Corneal Dystrophy Neg Hx Glaucoma Neg Hx Macular degeneration Neg Hx Retinal degeneration Neg Hx Retinal detachment Neg Hx Strabismus Neg Hx Relation Name Status Comments Aunt maternal Brother 1 Sheldon Alive Brother 2 Carlos Alive Brother 3 Alive Brother 4 Freddy Alive Father Amanuel Mother Kaylynn Briceno Sister 1 Alive Sister 2 Alive Sister 3 Alive Son 1 Linus Alive Son 2 Alive Son 3 Gaudencio Alive Uncle maternal Social History Tobacco Use Types Packs/Day Years Used Date Smoking Tobacco: Never Smokeless Tobacco: Never Alcohol Use Standard Drinks/Week Comments Yes 1 (1 standard drink = 0.6 oz pur e alcohol) 0-1/week [facility] Utilities Answer Date Recorded In the past 12 months has th e electric, gas, oil, or water company threatened [...] 11/16/2020 How often do you attend chur ch or confucianism services? More than 4 times per year 11/16/2020 Do you belong to any clubs o r organizations such as methodist groups, unions, fraternal or athletic groups, or [...] Answer Date Recorded PHQ-2 Score 0 07/08/2024 [facility] of Occupat ional [facility] - Occupational Stress Questionnaire Answer Date Recorded [...] your living situation today? I have a [facility] place to live 11/01/2023 Education Answer Date Recorded What is the highest level of school you have completed or the highest degree you have received? Some college, no degree 11/07/2018 Comments No Sex and Gender Information Value Date Recorded Sex Assigned at Female 04/09/2017 3:29 PM GOLF CADDY Legal Sex Female 8:40 AM GOLF CADDY Gender Identity Female 04/09/2017 3:29 PM GOLF CADDY Sexual Orientation Straight 04/09/2017 3: 29 PM GOLF CADDY Last Filed Vital Signs Vital Sign Reading Time Taken Comments Blood Pressure 154/94 08/08/2024 3:04 PM CDT Pulse 60 08/08/2024 3:04 PM CDT Temperature 36.4 C (97.5 F) 08/08/2024 2:57 PM CDT Respiratory Rate 16 06/29/2024 10:27 AM CDT Oxygen Saturation 98% 06/29/2024 11:15 AM CDT Inhaled Oxygen Concentration - - Weight 91.3 kg (201 lb 4.5 oz) 08/08/2024 2:57 P M CDT Height 178 cm (5' 10.08) 08/08/2024 2:57 PM CDT Body Mass Index 28.82 08/08/2024 2:57 PM CDT Plan of Treatment Upcoming Encounters Date Type Department Care Team (Latest Contact Info) Description 08/29/2024 10:45 AM CDT Virtual Visit Preoperative Evaluation Center in [address] [phone] Savanna Hough P.A.-C., P.A. [address] [place] [phone] Discharge Disposition: Home or Self Care 08/29/2024 3:40 PM CDT Ancillary Procedure Department of Ophthalmology in [place], [place] [address] [place] [address] 08/29/2024 4:00 PM CDT Hospital Encounter Outpatient Procedure Center in [place], [place] [address] [place] [address] Rohan Pleitez M.D. [address] [place] [address] 08/30/2024 3:00 PM CDT Telemedicine Department of Patient Education in [place], [place] [address] [place] [address] Savanna Hough P.A.-C., P.A. [address] [place] [phone] 09/05/2024 7:30 AM CDT Hospital Encounter Outpatient Procedure Center in [address] [phone] Adrian Hinojosa D.O. [address] [place] [phone] 09/05/2024 7:30 AM CDT Anesthesia Event Outpatient Procedure Center in [address] [phone] Radha Crawford M.D. [address] [place] [phone] 09/05/2024 7:30 AM CDT - 09/05/2024 9:53 AM CDT Surgery Outpatient Procedure Center in [address] [phone] Adrian Hinojosa D.O. [address] [place] [phone] ARTHROPLASTY REPLACEMENT TOTAL KNEE 09/11/2024 12:30 PM CDT Comprehensive Visit Department of Physical Medicine and Rehabilitation in [address] [place] [address] Savanna Hough P.A.-C., P.A. [address] [place] [phone] Keke Alexandra P.T. [address] [place] [phone] 09/18/2024 10:00 AM CDT Office Visit Department of Orthopedic Surgery in [address] [phone] Savanna Hough P.A.-C., P.A. [address] [place] [phone] Discharge Disposition: Home or Self Care 09/28/2024 11:00 AM CDT Appointment Outpatient Procedure Center in [address] [phone] Rohan Pleitez M.D. [address] [place] [phone] 11/03/2024 9:20 AM CDT Appointment Department of Laboratory Medicine in [place] [address] [place] [phone] Qian Carias M.D. [address] [place] [phone] 11/06/2024 2:40 PM CDT Comprehensive Visit Department of Family Medicine, [facility], in [place] [address] [place], [place] [phone] Qian Carias M.D. [address] [place] [phone] 11/22/2024 1:30 PM CDT Comprehensive Visit Department of Neurology in [place], [place] [address] [place] [address] Stuart Bernabe M.D. [address] [place] [address] Scheduled Procedures Name Priority Associated Diagnoses Date/Ti me ARTHROPLASTY REPLACEMENT TOTAL KNEE Primary Osteoarthritis Knee Right 09/05/2024 7:30 AM CDT Health Maintenance Due Date Last Done Comments CT Colonography 1950 Cologuard 1950 FIT 1950 Visit: Medicare Annual Wellness 1950 Zoster Vaccines (1 of 2) 11/13/1999 Mammogram 12/27/2018 12/27/2017, 09/12, 03/18/2012 COVID-19 Vaccine ( season) 2023 01/26/2022, 02/27/2021, 07/16/2020, Additional history exists Influenza Vaccine (#1) 2024 Office Visit for Blood Pressure Check / Re-check 11/07/2024 08/08/2024, 08/07/2024, 08/07/2024 Thyroid Stimulating Hormone (TSH) test for thyroid function 03/13/2025 03/13/2024, 11/02/2023, 03/11/2023, Additional history exists Creatinine Level (Kidney Function Test) 07/13/2025 07/13/2024, 11/02/2023, 05/11/2022, Additional history exists Potassium Level 07/13/2025 07/13/2024, 10/11, 05/11/2022, Additional history exists Sodium Level 07/13/2025 07/13/2024, 10/11, 05/11/2022, Additional history exists Visit: Chronic Disease, age 18+ 08/08/2025 08/08/2024 DTaP,Tdap,and Td Vaccines (2 - Td or Tdap) 10/08/2026 10/08/2016, 11/25/2007, 04/12/2003 Fasting Glucose for Diabetes Screening 07/14/2027 07/13/2024, 11/02/2023, 05/11/2022, Additional history exists Colonoscopy 02/16/2028 02/15/2018, 12/19/2007 Colorectal Cancer Screening 02/16/2028 Hepatitis B Screening Discontinued 10/17/2014 Pneumococcal vaccine (50+ years) Completed 11/19/2020, 11/07/2018 Bone Density Scan (Osteoporosis Screen) Discontinued 01/28/2022 Depression Screening (Annual PHQ-2) Completed 07/13/2024 Fall Risk Screen (Annual) Completed 07/31/2024 IPV Vaccines Aged Out No longer eligi ble based on patient's age to complete this topic Medical Devices Implanted Type Area Firearms Model Maker Device Identifier Shelf Expiration Date Model / Serial / Lot Breast [employer] Smooth Gel 450cc - Ivy [id number] Implanted:Qty: 1 on 11/16/2005 Breast Implant Other/Legacy - See Implant Description [employer] Description:Device Manufactu rer - [employer]. Body Location - Other. Right. Device Status Text - [id number]. Breast [employer] Smooth Gel 450cc - Ivy [id number] Implanted:Qty: 1 on 11/16/2005 Breast Implant Other/Legacy - See Implant Description [employer] Description:Device Manufactu rer - [employer]. Body Location - Other. Left. Device Status Text - [id number]. Alloderm 6 X 12 - Ivy [id number] Implanted:Qty: 1 on 11/16/2005 Mesh or Patch Other/Legacy - See Implant Description [employer] (Use Allergan) Description:Device Manufactu rer - [employer]. Body Location - Other. Right. Device Status Text - [id number]. Alloderm 6 X 12 - Ivy [id number] Implanted:Qty: 1 on 11/16/2005 Mesh or Patch Other/Legacy - See Implant Description LifeCell Jay[employer]ob (Use Allergan) Description:Device Manufactu rer - [employer]. Body Location - Other. Left. Device Status Text - [id number]. Procedures Procedure Name Priority Date/Time Associated Diagnosis Comments EMG Routine 08/15/2024 9:53 AM CDT Neuropathy Peripheral Pain Leg Bilateral LOWER EXTREMITY ARTERIAL - STANDARD PROTOCOL Routine 08/01/2024 12:03 PM CDT Edema Pedal Unspecified Open Wound Left Lower Leg Sequela Unspecified Open Wound Right Lower Leg Sequela Pain Leg Bilateral DX LUMBAR SPINE 2-3 VIEWS RAD - Routine (most inpatients and all outpatients) 08/01/2024 10:52 AM CDT Neuropathy Peripheral Pain Leg Bilateral Osteoporosis INTRAVITREAL INJECTION, PHARMACOLOGIC AGENT - OD - RIGHT EYE Routine 07/31/2024 4:06 PM CDT 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) OPTICAL COHERENCE TOMOGRAPHY - MACULA/RETINA - OU - BOTH EYES Routine 07/31/2024 3:59 PM CDT 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) INTRAVITREAL INJECTION, PHARMACOLOGIC AGENT - OD - RIGHT EYE - RST GONDA SCHEDULING ORDER Routine 07/31/2024 3:58 PM CDT 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) OPHTHALMOLOGY IMAGE EXAM Routine 07/31/2024 12:00 AM CDT ANGIOGRAPHY - OU - BOTH EYES Routine 07/27/2024 3:40 PM CDT 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) OPHTHALMOLOGY IMAGE EXAM Routine 07/27/2024 3:20 PM CDT VITAMIN D, IMMUNOASSAY, TOTAL, S Routine 07/13/2024 12:17 PM CDT Hypertensive Chronic Kidney Disease With Stage 1 Through Stage 4 Chronic Kidney Disease, Or Unspecified Chronic Kidney Disease Neuropathy Peripheral Edema Pedal Unspecified Open Wound Left Lower Leg Sequela Unspecified Open Wound Right Lower Leg Sequela Pain Leg Bilateral NT-PRO B-TYPE NATRIURETIC PEPTIDE (BNP), S Routine 07/13/2024 12:17 PM CDT Hypertensive Chronic Kidney Disease With Stage 1 Through Stage 4 Chronic Kidney Disease, Or Unspecified Chronic Kidney Disease Neuropathy Peripheral Edema Pedal Unspecified Open Wound Left Lower Leg Sequela Unspecified Open Wound Right Lower Leg Sequela Pain Leg Bilateral VITAMIN B12 ASSAY, S Routine 07/13/2024 12:17 PM CDT Hypertensive Chronic Kidney Disease With Stage 1 Through Stage 4 Chronic Kidney Disease, Or Unspecified Chronic Kidney Disease Neuropathy Peripheral Edema Pedal Unspecified Open Wound Left Lower Leg Sequela Unspecified Open Wound Right Lower Leg Sequela Pain Leg Bilateral MAGNESIUM, S Routine 07/13/2024 12:17 PM CDT Hypertensive Chronic Kidney Disease With Stage 1 Through Stage 4 Chronic Kidney Disease, Or Unspecified Chronic Kidney Disease Neuropathy Peripheral Edema Pedal Unspecified Open Wound Left Lower Leg Sequela Unspecified Open Wound Right Lower Leg Sequela Pain Leg Bilateral IRON AND TOT IRON-BINDING CAPACITY, S/P Routine 07/13/2024 12:17 PM CDT Hypertensive Chronic Kidney Disease With Stage 1 Through Stage 4 Chronic Kidney Disease, Or Unspecified Chronic Kidney Disease Neuropathy Peripheral Edema Pedal Unspecified Open Wound Left Lower Leg Sequela Unspecified Open Wound Right Lower Leg Sequela Pain Leg Bilateral FERRITIN, S Routine 07/13/2024 12:17 PM CDT Hypertensive Chronic Kidney Disease With Stage 1 Through Stage 4 Chronic Kidney Disease, Or Unspecified Chronic Kidney Disease Neuropathy Peripheral Edema Pedal Unspecified Open Wound Left Lower Leg Sequela Unspecified Open Wound Right Lower Leg Sequela Pain Leg Bilateral COMPREHENSIVE METABOLIC PANEL, S/P Routine 07/13/2024 12:17 PM CDT Hypertensive Chronic Kidney Disease With Stage 1 Through Stage 4 Chronic Kidney Disease, Or Unspecified Chronic Kidney Disease Neuropathy Peripheral Edema Pedal Unspecified Open Wound Left Lower Leg Sequela Unspecified Open Wound Right Lower Leg Sequela Pain Leg Bilateral CBC WITH DIFFERENTIAL, B Routine 07/13/2024 12:17 PM CDT Hypertensive Chronic Kidney Disease With Stage 1 Through Stage 4 Chronic Kidney Disease, Or Unspecified Chronic Kidney Disease Neuropathy Peripheral Edema Pedal Unspecified Open Wound Left Lower Leg Sequela Unspecified Open Wound Right Lower Leg Sequela Pain Leg Bilateral ECG Routine 07/13/2024 12:05 PM CDT Hypertensive Chronic Kidney Disease With Stage 1 Through Stage 4 Chronic Kidney Disease, Or Unspecified Chronic Kidney Disease Edema Pedal Syncope OPTICAL COHERENCE TOMOGRAPHY - MACULA/RETINA - OU - BOTH EYES Routine 06/30/2024 9:37 AM CDT 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) CT HEAD WITHOUT IV CONTRAST RAD - Semiurgent (Fast; most ED patients; some inpatients) 06/29/2024 11:22 AM CDT THYROID-STIMULATING HORMONE-SENSITIVE (S-TSH) Routine 03/13/2024 10:21 AM GOLF CADDY Hypothyroidism Post Radio Iodine COLONOSCOPY 02/15/2018 2:39 PM GOLF CADDY BI BREAST SCREENING BILATERAL WITH TOMOSYNTHESIS RAD - Routine (most inpatients and all outpatients) 12/27/2017 10:57 AM CDT Screening Mammogram Average Risk Patient HEPATITIS B SURFACE ANTIGEN Routine 10/17/2014 8:40 AM CDT from Last 3 Months or Most Recently Relevant to Health Maintenance Results * EMG (08/15/2024 9:53 AM CDT) 08/15/2024 10:3 0 AM CDT Narrative [facility] EMG - 08/15/2024 11:33 AM CDT Table formatting from the original result was not included. 15-Aug-2024 Electromyography Final Report Study Number: 1 EMG Mammalogy Teacher: Gaurav Bernabe or [phone] Referred by: JARRED STEWARD () Referred for: PN BLE Referral Code: RX: 001 SUMMARY: Prior to starting the procedure, the patient's identity was verified, pertinent available records were reviewed, the nature of the procedure was explained, the appropriate sites of the exam were confirmed directly with the patient, and a pre-procedure pause was performed for final verification of all of the above. Nerve conduction studies of the left lower limb showed mildly low amplitude left fibular compound muscle action potential without focal conduction block present. There was no temporal dispersion present. F-waves were normal. Needle examination of the left lower limb was within normal limits. CLINICAL INTERPRETATION: There is no compelling electrophysiologic evidence of a length-dependent large fiber peripheral neuropathy or left lumbosacral radiculopathy on this study. The mildly low amplitude left fibular motor response is of doubtful clinical significance and may be related to intrinsic factors / prior trauma involving the left foot. N. Seven (127 or [phone]) NERVE CONDUCTIONS Record Rep Normal Normal Distal Normal F-Wave F-Wave Temp Nerve Type Site Stim Side Amp Amp CV CV Lat Lat Lat Est ( C) Fibular Motor EDB L 1.6 (> 2.0) 44 (> 41) 3.5 (< 6.6) 51.0 56.2 33.5 Tibial Motor AH L 4.0 (> 4.0) 48 (> 40) 4.0 (< 6.1) 53.8 52.3 32.1 Sural Sensory Ankle L 3 (> 0.0) 50 (> 40) 3.7 (< 4.5) 31.4 NEEDLE EMG Ins Spont MUP Recruitment Duration Amplitude Phases Muscle Side Act Fib Fasc Normal Activ Reduced Rapid Long Short High Low % Turns Gluteus ricardo L NL 0 0 NL Biceps femoris (long head) L NL 0 0 NL Vastus medialis L NL 0 0 NL Gastrocnemius (medial head) L NL 0 0 NL +/- Tibialis anterior L NL 0 0 NL First dorsal interosseous (pedis) L NL 0 0 ----- None Comment: unable to activate This interpretation has been electronically signed: Gaurav Bernabe M.D. at 08/15/2024 11:31:48 AM CDT Jarred Steward APRN, C.N.P. NEUROLOGY ORDERABLES Final Result [facility] EMG * LOWER EXTREMITY ARTERIAL - STANDARD PROTOCOL (08/01/2024 12:03 PM CDT) Anatomical Region Laterality Modality Ultrasound 08/01/2024 10:0 1 AM CDT Narrative 08/01/2024 12:30 PM CDT Right: Doppler Waveforms: Normal at all levels evaluated. Resting Index: GALDINO (PT)- 1.23 GALDINO (DP)- 1.11 TBI- 0.69 Left: Doppler Waveforms: Normal at all levels evaluated. Resting Index: GALDINO (PT)- 1.26 GALDINO (DP)- 0.99 TBI- 0.62 Conclusions: Both lower extremitieshave normal doppler waveform, normal ABIs and mildlyabnormal TBIs. No previous study for comparison. Procedure Note Dennis Denis M.D. - 08/01/2024 Right: Doppler Waveforms: Normal at all levels evaluated. RestingIndex: GALDINO (PT)- 1.23 GALDINO (DP)- 1.11 TBI- 0.69 Left: Doppler Waveforms: Normal at all levels evaluated. RestingIndex: GALDINO (PT)- 1.26 GALDINO (DP)- 0.99 TBI- 0.62 Conclusions: Both lower extremitieshave normal doppler waveform, normalABIs and mildlyabnormal TBIs. No previous study for comparison. us Jrared Steward APRN, C.N.P. CV VASCULAR PROCEDUR ES Final Result * DX Lumbar Spine 2-3 Views (08/01/2024 10:52 AM CDT) Anatomical Region Laterality Modality Lumbar Spine, Musculoskeleta l RST LOS, Neuroradiology ARZ LOS, Muskuloskeletal FLA LOS N/A Digital Radiography Impressions 08/01/2024 11:36 AM CDT No acute compression fracture. No listhesis. Minimal leftward coronal curvature. Multilevel disc height loss and endplate spurring greatest at L2-3. Multilevel facet arthropathy greatest in the lower lumbar spine. Narrative 08/01/2024 11:36 AM CDT EXAM: DX LUMBAR SPINE 2-3 VIEWS Procedure Note John Koch M.D. - 08/01/2024 EXAM: DX LUMBAR SPINE 2-3 VIEWS IMPRESSION: No acute compression fracture. No listhesis. Minimal leftward coronalcurvature. Multilevel disc height loss and endplate spurring greatest atL2-3. Multilevel facet arthropathy greatest in the lower lumbar spine. us Jarred Steward APRN, C.N.P. IMG DIAGNOSTIC IMAGI NG PROCEDURES Final Result * Intravitreal Injection, Pharmacologic Agent - OD - Right Eye (07/31/2024 4:06 PM CDT) Narrative Keyana Gimenez M.D. - 07/31/2024 4:38 PM CDT Pre-Procedure Verification Pre-procedure verification conducted to verify correct patient identity, procedure to be performed and, as applicable, correct side and site. Patient ID band validated and present. Patient consent obtained. 07/31/2024. Time Out Confirmed correct patient, procedure, site, and patient consented. Anesthesia Topical anesthesia was used. Pre/Post Procedure prep and meds used were Celluvisc 1-10 drops, Povidone 5% 1-10 drops, Povidone 10% swabs x 3 to lids and lashes, Proparacaine 0.5% 1-10 drops, Tetracaine 0.5% 1-10 drops. Procedure Details Injection: 1.25 mg bevacizumab 25 mg/mL Route: intravitreal, Site: Right Eye [facility]: 03458-607-56 Balanced salt solution irrigation to injected eye after the injection was Done. Hand motion was present. Count fingers was correct. Reviewed instructions and patient verbalizes understanding. Notes Patient oriented to outpatient procedure center. Reviewed process for scheduled procedure, and pain management including pain scale. Patient declines written post-procedure material or previously received brochure. Information reviewed and understanding assessed by teach-back. Follow-up appointments discussed and return schedule given if requested. Avastin OD: Lot [id number] Exp 10/27/24 us Keyana Gimenez M.D. OPHTH CLINIC PROCEDURES Final Result * Optical Coherence Tomography - Macula/Retina - OU - Both Eyes (07/31/2024 3:59 PM CDT) Narrative OPHTHALMOLOGY IMAGING EXAM - 07/31/2024 3:59 PM CDT See interpretation in note section us Rohan Pleitez M.D. OPHTH TOMOGRAPHY Final R esult OPHTHALMOLOGY IMAGING EXAM * Eyes Spectralis OCT-Ophthalmology Image Exam (07/31/2024 12:00 AM CDT) Only the most recent of2 resultswithin the time period is included. Narrative IIMS - 07/31/2024 1:28 PM CDT This order has been created and auto-finalized to support the import of images acquired without order. The clinical documentation to support these images can be found on the encounter that produced images. us Provider Not In System IMG NON RAD IMAGING PROCE DURES Final Result Performing Organization Address [facility] Co de Phone Number IIFL NA * Fluorescein Angiography - OU - Both Eyes (07/27/2024 3:40 PM CDT) Narrative OPHTHALMOLOGY IMAGING EXAM - 08/03/2024 11:07 AM CDT Right Eye Dye used is fluorescein. Fluorescein dose given is half dose. Field of view is ultra-wide view. Left Eye Dye used is fluorescein. Fluorescein dose given is half dose. Field of view is ultra-wide view. Notes OPTOS FA completed - LSA See interpretation in note section us Rohan Pleitez M.D. OPHTH PHOTOGRAPHY Final Result Performing Organization Address [facility] Co de Phone Number OPHTHALMOLOGY IMAGING EXAM * Vitamin D, Immunoassay, Total, Serum (07/13/2024 12:17 PM CDT) Vitamin D, Immunoassay, Total, S 32 20 - 80 ng/mL 07/13/2024 9:38 PM CDT ECLR Comment: Optimum levels within the healthy population are 20-50, patients with bone disease may benefit from high levels within this range Blood (Blood, Venous) 07/13/2024 12:17 PM CDT 07/13/2024 8:40 PM CDT us Jarred Steward APRN, C.N.P. LAB BLOOD ADD-ON Fin al Result Performing Organization Address [facility] Co de Phone Number [facility] [address] [place] [address], [facility] ECLR [facility] in [address] [address] * NT-Pro B-Type Natriuretic Peptide (BNP) (07/13/2024 12:17 PM CDT) NT-Pro BNP 444 <=540 pg/mL 07/13/2024 10:17 PM CDT RDWG Comment: NT-proBNP values less than 300 pg/mL have a 99% negative predictive value for excluding acute congestive heart failure. A cutoff of 1200 pg/mL for patients with an eGFR<60 yields a diagnostic sensitivity and specificity of 89% and 72% for acute congestive heart failure. A diagnostic NT-proBNP cutoff of 900 pg/mL has been suggested in adults 50-75 years of age in the absence of renal failure. Blood (Blood, Venous) 07/13/2024 12:17 PM CDT 07/13/2024 9:47 PM CDT Jarred Steward APRN, C.N.P. LAB BLOOD ADD-ON Fin al Result Performing Organization Address [facility] de Phone Number [facility] [address] [place] [address], [facility] RDWG [facility] in [address] [address] * Iron and Total Iron-Binding Capacity (07/13/2024 12:17 PM CDT) Pathologist [facility] Iron 119 35 - 145 mcg/dL 07/13/2024 7:48 PM CDT RDWG Total Iron Binding Capacity 270 250 - 400 mcg/dL 07/13/2024 7:48 PM CDT RDWG Percent Saturation 44 14 - 50 % 07/13/2024 7:48 PM CDT RDW[facility] Blood (Blood, Venous) 07/13/2024 12:17 PM CDT 07/13/2024 7:05 PM CDT Jarred Steward APRN, C.N.P. LAB BLOOD ADD-ON Fin al Result Performing Organization Address [facility]/ZIP Co de Phone Number [facility] [address] [place] [address], [place] [address], [facility] RDWG [facility] in [place] [address], [place] [address] * (ABNORMAL) CBC with Differential, Blood (07/13/2024 12:17 PM CDT) [facility] Hemoglobin 13.9 11.6 - 15.0 g/dL 07/13/2024 7:25 PM CDT RDWG Hematocrit 42.8 35.5 - 44.9 % 07/13/2024 7:25 PM CDT RDW[facility] Erythrocytes 4.22 3.92 - 5.13 x10(12)/L 07/13/2024 7:25 PM CDT RDW[facility] MCV 101.4(H) 78.2 - 97.9 fL 07/13/2024 7:25 PM CDT RDWG RBC Distrib Width 13.3 12.2 - 16.1 % 07/13/2024 7:25 PM CDT RDW[facility] Platelet Count 243 157 - 371 x10(9)/L 07/13/2024 7:25 PM CDT RDWG Leukocytes 6.1 3.4 - 9.6 x10(9)/L 07/13/2024 7:25 PM CDT R[facility] Neutrophils 3.73 1.56 - 6.45 x10(9)/L 07/13/2024 7:24 PM CDT R[facility] Lymphocytes 1.71 0.95 - 3.07 x10(9)/L 07/13/2024 7:25 PM CDT RDW[facility] Monocytes 0.44 0.26 - 0.81 x10(9)/L 07/13/2024 7:25 PM CDT RDW[facility] Eosinophils 0.16 0.03 - 0.48 x10(9)/L 07/13/2024 7:25 PM CDT RDW[facility] Basophils 0.04 0.01 - 0.08 x10(9)/L 07/13/2024 7:25 PM CDT R[facility] Blood (Blood, Venous) 07/13/2024 12:17 PM CDT 07/13/2024 7:11 PM CDT Jarred Steward APRN, C.N.P. LAB BLOOD ADD-ON Fin al Result Performing Organization Address City/[facility]/ZIP Co de Phone Number [facility] [address] [place] [address], [facility] RDWG [facility] in [place] [address] * Magnesium (07/13/2024 12:17 PM CDT) Pathologist [facility] Magnesium, P 2.1 1.7 - 2.3 mg/dL 07/13/2024 7:41 PM CDT RDWG Blood (Blood, Venous) 07/13/2024 12:17 PM CDT 07/13/2024 7:07 PM CDT Jarred Steward APRN, C.N.P. LAB BLOOD ADD-ON Fin al Result Performing Organization Address [facility] Co de Phone Number [facility] [place] [address], [facility] RDWG [facility] in [place] [address] [place] [address] * Ferritin (07/13/2024 12:17 PM CDT) Pathologist [facility] Ferritin, S 317 11 - 328 mcg/L 07/13/2024 7:48 PM CDT RDWG Comment: Biotin has been identified by the title agent as a potential interfering substance. Higher concentrations of biotin may be found in multivitamins, hair/nail supplements, and workout supplements. If the result does not match clinical observations, repeat testing after patient refrains from the use of supplements for at least 12 hours. Blood (Blood, Venous) 07/13/2024 12:17 PM CDT 07/13/2024 7:05 PM CDT Jarred Steward APRN, C.N.P. LAB BLOOD ADD-ON Fin al Result Performing Organization Address City/[facility]/ZIP Co de Phone Number [facility] [address] [place] [address], [facility] RDWG [facility] in [place] [address] [place] [address] * (ABNORMAL) Vitamin B12 Assay (07/13/2024 12:17 PM CDT) Vitamin B12 Assay, S 231(L) 232 - 1245 ng/L 07/13/2024 9:38 PM CDT ECLR Comment: Biotin has been identified by the title agent as a potential interfering substance. Higher concentrations of biotin may be found in multivitamins, hair/nail supplements, and workout supplements. If the result does not match clinical observations, repeat testing after patient refrains from the use of supplements for at least 12 hours. Blood (Blood, Venous) 07/13/2024 12:17 PM CDT 07/13/2024 8:40 PM CDT Jarred Steward APRN, C.N.P. LAB BLOOD ADD-ON Fin al Result [facility] [address] [place] [address], [facility] ECLR [facility] [place] [address] * (ABNORMAL) Comprehensive Metabolic Panel (07/13/2024 12:17 PM CDT) Potassium, P 3.6 3.6 - 5.2 mmol/L 07/13/2024 7:41 PM CDT RDWG Sodium, P 141 135 - 145 mmol/L 07/13/2024 7:41 PM CDT RDWG Chloride, P 105 98 - 107 mmol/L 07/13/2024 7:41 PM CDT RDW[facility] Bicarbonate, P 27 22 - 29 mmol/L 07/13/2024 7:41 PM CDT RDW[facility] Anion Gap, P 9 7 - 15 07/13/2024 7:41 PM CDT RDW[facility] BUN (Blood Urea Nitrogen), P 15 6 - 21 mg/dL 07/13/2024 7:41 PM CDT RDWG Creatinine 0.77 0.59 - 1.04 mg/dL 07/13/2024 7:41 PM CDT RDWG Estimated GFR (eGFR) 81 >=60 mL/min/BS A 07/13/2024 7:41 PM CDT RDWG Comment: Estimated GFR calculated using the 2020 CKD_EPI creatinine equation. Calcium, Total, P 9.2 8.8 - 10.2 mg/dL 07/13/2024 7:41 PM CDT RDWG Glucose, P 92 70 - 140 mg/dL 07/13/2024 7:41 PM CDT RDW[facility] Protein, Total, P 8.0(H) 6.3 - 7.9 g/dL 07/13/2024 7:41 PM CDT RDWG Albumin, P 4.2 3.5 - 5.0 g/dL 07/13/2024 7:41 PM CDT RDWG Aspartate Aminotransferase (AST), P 21 8 - 43 U/L 07/13/2024 7:41 PM CDT RDW[facility] Alkaline Phosphatase, P 82 35 - 104 U/L 07/13/2024 7:41 PM CDT RDW[facility] Alanine Aminotransferase (ALT), P 12 7 - 45 U/L 07/13/2024 7:41 PM CDT RDW[facility] Bilirubin, Total, P 0.5 0.0 - 1.2 mg/dL 07/13/2024 7:41 PM CDT RDW[facility] Blood (Blood, Venous) 07/13/2024 12:17 PM CDT 07/13/2024 7:07 PM CDT us Jarred Steward APRN, C.N.P. LAB BLOOD ADD-ON Fin al Result [facility] [address] [place], [place] [address], [place] RDWG [facility] in [place] [address], [place] [address] * ECG 12 Lead (07/13/2024 12:05 PM CDT) Ventricular Rate ECG/Min 68 BPM MUSE OH Interval 166 ms MUSE QRSD Interval 100 ms MUSE QT Interval 412 ms MUSE QTC Interval 438 ms MUSE P [place] 78 degrees MUSE R [place] -46 degrees MUSE T Wave [place] 10 degrees MUSE 07/13/2024 12:0 5 PM CDT 07/13/2024 12:21 PM CDT Impressions MUSE - 07/13/2024 12:21 PM CDT Normal sinus rhythm Left anterior fascicular block Minimal voltage criteria for LVH, may be normal variant Nonspecific T wave abnormality When compared with ECG of 22-Sep-2011 14:28, Left anterior fascicular block is now present Minimal criteria for Left ventricular hypertrophy are now present Reviewed by ANGELA Salas Narrative Procedure Note Abhilash Garcia M.D., Ph.D. - 07/13/2024 IMPRESSION: Normal sinus rhythm Left anterior fascicular block Minimal voltage criteria for LVH, may be normal variant Nonspecific T wave abnormality When compared with ECG of 22-Sep-2011 14:28, Left anterior fascicular block is now present Minimal criteria for Left ventricular hypertrophy are now present Reviewed by ANGELA Salas Jarred Steward APRN, C.N.P. ECG ORDERABLES Monalisa l Result Performing Organization Address [facility] Co de Phone Number MUSE NA * Optical Coherence Tomography - Macula/Retina - OU - Both Eyes (06/30/2024 9:37 AM CDT) Narrative OPHTHALMOLOGY IMAGING EXAM - 06/30/2024 9:37 AM CDT Right Eye OCT device used was Cirrus . Left Eye OCT device used was Cirrus . Notes Right, +macular edema. Left, flat Sacha Suárez M.D. OPHTH TOMOGRAPHY Final Result Performing Organization Address [facility]/ZIP Co de Phone Number OPHTHALMOLOGY IMAGING EXAM * CT Head without IV Contrast (06/29/2024 11:22 AM CDT) Anatomical Region Laterality Modality Head, Neuroradiology RST LOS , Neuroradiology ARZ LOS, Neuroradiology [facility] N/A Computed Tomography 06/29/2024 11:2 3 AM CDT Impressions 06/29/2024 11:45 AM CDT No acute intracranial pathology. Narrative 06/29/2024 11:45 AM CDT EXAM: CT HEAD WITHOUT IV CONTRAST COMPARISON: Head CT 02/10/2022 FINDINGS: No acute intracranial hemorrhage, mass effect, or midline shift. Ventricles are proportionate to the cerebral sulci. No evidence for acute/subacute infarct. Severe white matter hypoattenuation, nonspecific but most likely sequela small vessel ischemic disease.. 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 Superimposed dilated perivascular spaces are also possible. No acute or suspicious calvarial abnormality. Paranasal sinuses and mastoid air cells are relatively clear. Procedure Note John Koch M.D. - 06/29/2024 EXAM: CT HEAD WITHOUT IV CONTRAST COMPARISON: Head CT 02/10/2022 FINDINGS: No acute intracranial hemorrhage, mass effect, or midline shift.Ventricles are proportionate to the cerebral sulci. No evidence foracute/subacute infarct. Severe white matter hypoattenuation, nonspecificbut most likely sequela small vessel ischemic disease.. Stable chronic bilateral basal ganglia and rightthalamic lacunar infarcts. Superimposed dilated perivascular spaces arealso possible. No acute or suspicious calvarial abnormality. Paranasal sinuses and mastoid air cells are relatively clear. IMPRESSION: No acute intracranial pathology. Madan Moore M.D. IMG CT PROCEDURES Final Resu lt * S-TSH (Thyroid-Stimulating Hormone - Sensitive) (03/13/2024 10:21 AM GOLF CADDY) TSH, Sensitive 1.8 0.3 - 4.2 mIU/L 03/13/2024 2:07 PM GOLF CADDY OWAT Blood (Blood, Venous) 03/13/2024 10:21 AM GOLF CADDY 03/13/2024 1:05 PM GOLF CADDY Qian Carias M.D. LAB BLOOD ADD-ON Final Resu lt [facility] [address] [place] [address], [place] [facility] in [place] [address] [place] [address] * COLONOSCOPY (02/15/2018 2:39 PM GOLF CADDY) Narrative Procedure Note David uCi M.D. - 02/15/2018 2:39 PM CST [facility] [place] [facility] Patient Name: Soraya Alexandra Procedure Date: 02/15/2018 2:39 PM Date of : 1950 Age: 67 Gender: Female Procedure: Colonoscopy Providers: Alis Smith (Ordering Provider) Referring Provider: Alis Muro Pre-op Diagnoses: Screening for colorectal malignant neoplasm Post-op Diagnoses: - Diverticulosis in the sigmoid colon. - The examination was otherwise normal. - No specimens collected. Recommendation: - Repeat colonoscopy in 10 years for screening purposes. Findings: Multiple small-mouthed diverticula were found in the sigmoid colon. The exam was otherwise without abnormality. Medicines: Versed 4 mg IV, Fentanyl 100 micrograms IV Complications: No immediate complications. Estimated blood loss: None. Procedure Details: The patient was seen, evaluated, and history reviewed. Airway and heart and lung exams were performed and were satisfactory for plannedsedation care. The risks, benefits and alternatives for the procedure and sedation were discussed andinformed consent was obtained. A procedural pause was conducted in the presence of assisting personnelto verify the correct patient identity and procedureto be performed. Throughout the procedure, the patient's blood pressure, pulse, and oxygen saturations were monitored continuously. The Colonoscope was introduced under directvision through the anus and advanced to the cecum, identified by appendiceal orifice and ileocecal valve. The colonoscopy was performed without difficulty. The patient tolerated the procedure well. The quality of the bowel preparation wasgood. Sedation: Moderate (conscious) sedation was administered by the endoscopy nurse and supervised by the endoscopist. The patient's oxygen saturation, heart rate, blood pressure and response to care were monitored. Total physician intraservice time was 27 minutes. David Cui, 02/15/2018 3:19:18 PM This report has been signed electronically. Number of Addenda: 0 Note Initiated On: 02/15/2018 2:39 PM David Cui M.D. GI PROCEDURE ORDERABLES Fi nal Result * (ABNORMAL) BI Breast Screening Bilateral with Tomosynthesis (12/27/2017 10:57 AM CDT) Anatomical Region Laterality Modality Breast, Breast Imaging RST L OS, Breast Imaging ARZ LOS, Breast Imaging FLA LOS Bilateral Mammography 12/27/2017 1:10 PM CDT Impressions 12/27/2017 1:14 PM CDT IMPRESSION: Incomplete. Need additional imaging evaluation. RECOMMENDATION: Additional Imaging ASSESSMENT: BI-RADS: 0 - Incomplete: Needs Additional Imaging Evaluation. Narrative 12/27/2017 1:14 PM CDT EXAM: BI BREAST SCREENING BILATERAL WITH TOMOSYNTHESIS Current study was evaluated with a Computer Aided Detection (CAD) system. INDICATION: Screening mammogram. COMPARISON: Prior exams were available for comparison. DENSITY: b. There are scattered areas of fibroglandular density. FINDINGS: Negative right breast. Possible developing masses versus focal asymmetry is left breast, posterior depth medially. Finding is best visualized on left CC ID view. Subpectoral breast implants. Procedure Note Ashwin Alexander M.D. - 12/27/2017 EXAM: BI BREAST SCREENING BILATERAL WITH TOMOSYNTHESIS Current study was evaluated with a Computer Aided Detection (CAD) system. INDICATION: Screening mammogram. COMPARISON: Prior exams were available for comparison. DENSITY: b. There are scattered areas of fibroglandular density. FINDINGS: Negative right breast. Possible developing masses versusfocal asymmetry is left breast, posterior depth medially. Finding is bestvisualized on left CC ID view. Subpectoral breast implants. IMPRESSION: Incomplete. Need additional imaging evaluation. RECOMMENDATION: Additional Imaging ASSESSMENT: BI-RADS: 0 - Incomplete: Needs Additional ImagingEvaluation. Alis SIDDIQI BI PROCEDURES Final Re sult * Hepatitis B Surface Antigen (10/17/2014 8:40 AM CDT) HBs Antigen, S Negative Negative POWERCHART Comment: Test Performed by: [address] [address] Hospice Superintendent: David Currie II, M.D., Ph.D. Blood 10/17/2014 8:40 AM CDT Kim Posada M.D., M.P.H. LAB MICROBIOLOGY - B LOOD ORDERABLES Final Result POWERCHART from Last 3 Months or Most Recently [place]vant [place] [address] [facility] Advance Directives For more information, please contact: [phone] * Full Code (Latest Code Status on File) Date Activated Date Inactivated Comments 02/15/2018 3:29 PM 02/15/2018 6:00 PM Question Answer Comments Full Code: Discussed * Full Code Date Activated Date Inactivated Comments 02/15/2018 1:47 PM 02/15/2018 3:29 PM Question Answer Comments Full Code: Discussed Care Teams Apns Relationship Specialty Start Date End Date Qian Carias M.D. [address] [place] [address] PCP - General Internal Medicine 12/28/17
--- OUTSIDE RECORDS SUMMARY | 2024-08-28 14:42 | XMS_ITS | Encounter Summary ---
Author Organization [facility] Address [address] [place] [address] Care Team Providers Care Can Striper Name Role Phone Qian Carias M.D. Primary Care Provider [phone] Reason for Visit * Reason Onset Date Comments Surgical Listing 07/18/2024 Ortho Encounter Details Date Type Department Care Team (Late st Contact Info) Description 07/18/2024 Clinical Communication Department of Orthopedic Surgery in [place], [place] [address] [place] [address] Savanna Hough P.A.-C., P.A. [address] [place] [phone] Surgical Listing (Ortho ) Social History Tobacco Use Types Packs/Day Years Used Date Smoking Tobacco: Never Smokeless Tobacco: Never Alcohol Use Standard Drinks/Week Comments Yes 1 (1 standard drink = 0.6 oz pur e alcohol) 0-1/week [facility] Utilities Answer Date Recorded In the past 12 months has e [employer], gas, oil, or water company threatened to [...] week 11/16/2020 How often do you attend [facility] or islam services? More than 4 times per year 11/16/2020 Do you belong to any clubs o r organizations such as jewish groups, unions, fraternal or athletic groups, or [...] Answer Date Recorded PHQ-2 Score 0 07/08/2024 [facility] of Occupat ional Health - Occupational Stress [...] your living situation today? I have a [facility] place to live 11/01/2023 Education Answer Date Recorded What is the highest level of school you have completed or the highest degree you have received? Some college, no degree 11/07/2018 Comments No Sex and Gender Information Value Date Recorded Sex Assigned at Female 04/09/2017 3:29 PM STENOTYPIST Legal Sex Female 8:40 AM STENOTYPIST Gender Identity Female 04/09/2017 3:29 PM STENOTYPIST Sexual Orientation Straight 04/09/2017 3: 29 PM STENOTYPIST documented as of this encounter Miscellaneous Notes * Telephone Encounter - Elva Riddle, L.P.N. - 07/18/2024 11:20 AM CDT Scheduled R TKA on 09/05/24 to be performed by DR Hinojosa. Hospital stay. BMI Readings from Last 1 Encounters: 07/13/24 28.88 kg/m?? If BMI 55-60, contact Anesthesia as needs to schedule visit for evaluation. If BMI greater than 60,consult with provider. documented in this encounter Plan of Treatment Upcoming Encounters Date Type Department Care Team (Latest Contact Info) Description 08/29/2024 10:45 AM CDT Virtual Visit Preoperative Evaluation Center in [address] [phone] Savanna Hough P.A.-C., P.A. [address] [place] [phone] Discharge Disposition: Home or Self Care 08/29/2024 3:40 PM CDT Ancillary Procedure Department of Ophthalmology in [place], [place] [address] [place] [phone] 08/29/2024 4:00 PM CDT Hospital Encounter Outpatient Procedure Center in [place], [place] [address] [place] [address] Rohan Pleitez M.D. [address] [place] [address] 08/30/2024 3:00 PM CDT Telemedicine Department of Patient Education in [place], [place] [address] [place] [address] Savanna Hough P.A.-C., P.A. [address] [place] [phone] 09/05/2024 7:30 AM CDT Hospital Encounter Outpatient Procedure Center in [address] [phone] Adrian Hinojosa D.O. [address] [place] [address] 09/05/2024 7:30 AM CDT Anesthesia Event Outpatient Procedure Center in [address] [phone] Radha Crawford M.D. [address] [place] [phone] 09/05/2024 7:30 AM CDT - 09/05/2024 9:53 AM CDT Surgery Outpatient Procedure Center in [address] [phone] Adrian Hinojosa D.O. [address] [place] [phone] ARTHROPLASTY REPLACEMENT TOTAL KNEE 09/11/2024 12:30 PM CDT Comprehensive Visit Department of Physical Medicine and Rehabilitation in [address] [place] [address] Savanna Hough P.A.-C., P.A. [address] [place] [phone] Keke Alexandra, PJoy [address] [place] [address] [phone] 09/18/2024 10:00 AM CDT Office Visit Department of Orthopedic Surgery in [address] [phone] Savanna Hough P.A.-C., P.A. [address] [place] [phone] Discharge Disposition: Home or Self Care 09/28/2024 11:00 AM CDT Appointment Outpatient Procedure Center in [address] [phone] Rohan Pleitez M.D. [address] [place] [address] 11/03/2024 9:20 AM CDT Appointment Department of Laboratory Medicine in [place] [address] [place] [address] Qian Carias M.D. [address] [place] [phone] 11/06/2024 2:40 PM CDT Comprehensive Visit Department of Family Medicine, [facility], in [address] [place] [address] Qian Carias M.D. [address] [place] [phone] 11/22/2024 1:30 PM CDT Comprehensive Visit Department of Neurology in [place], [place] [address] [place] [phone] Stuart Bernabe M.D. [address] [place] [address] Scheduled Procedures Name Priority Associated Diagnoses Date/Ti me ARTHROPLASTY REPLACEMENT TOTAL KNEE Primary Osteoarthritis Knee Right 09/05/2024 7:30 AM CDT documented as of this encounter Visit Diagnoses Not on filedocumented in this encounter Care Teams Can Striper Relationship Specialty Start Date End Date Qian Carias M.D. [address] [place] [address] [place] [phone] PCP - General Internal Medicine 12/28/17 documented as of this encounter
--- OUTSIDE RECORDS SUMMARY | 2024-08-28 14:43 | XMS_ITS | Encounter Summary ---
Author Organization [facility] Address [address] [place] [address] Care Team Providers Care Nurse Practitioner Adult Name Role Phone Qian Carias M.D. Primary Care Provider [phone] Encounter Details Date Type Department Care Team (Latest Contact Info) Description 07/31/2024 Results Follow-Up Outpatient Procedure Center in [place], [place] [address] [place] [address] Keyana Gimenez M.D. [address] [place] [address] Intravitreal Injection, Pharmacologic Agent - OD - Right Eye Social History Tobacco Use Types Packs/Day Years Used Date Smoking Tobacco: Never Smokeless Tobacco: Never Alcohol Use Standard Drinks/Week Comments Yes 1 (1 standard drink = 0.6 oz pur e alcohol) 0-1/week [facility] Utilities Answer Date Recorded In the past 12 months has [employer], gas, oil, or water [employer] threatened to shut off services in your [...] How often do you attend chur or uatsdin services? More than 4 times per year 11/16/2020 Do you belong to any clubs o r organizations such as orthodox groups, unions, fraAxcient or athletic groups, or school groups? Yes [...] Answer Date Recorded PHQ-2 Score 0 07/08/2024 [facility] of Occupat ional Health - Occupational Stress [...] your living situation today? I have a [facility] place to live 11/01/2023 Education Answer Date Recorded What is the highest level of school you have completed or the highest degree you have received? Some college, no degree 11/07/2018 Comments No Sex and Gender Information Value Date Recorded Sex Assigned at Female 04/09/2017 3:29 PM ANIMAL ANATOMY TEACHER Legal Sex Female 8:40 AM ANIMAL ANATOMY TEACHER Gender Identity Female 04/09/2017 3:29 PM ANIMAL ANATOMY TEACHER Sexual Orientation Straight 04/09/2017 3: 29 PM ANIMAL ANATOMY TEACHER documented as of this encounter Miscellaneous Notes * Telephone Encounter - Kimber Cope CJovanyS.T. - 08/02/2024 10:53 AM CDT Contacted patient and scheduled 3rd injection in plan. documented in this encounter Plan of Treatment Upcoming Encounters Date Type Department Care Team (Latest Contact Info) Description 08/29/2024 10:45 AM CDT Virtual Visit Preoperative Evaluation Center in [address] [phone] Savanna Hough P.A.-C., P.A. [address] [place] [phone] Discharge Disposition: Home or Self Care 08/29/2024 3:40 PM CDT Ancillary Procedure Department of Ophthalmology in [place], [place] [address] [place] [phone] 08/29/2024 4:00 PM CDT Hospital Encounter Outpatient Procedure Center in [place], [place] [address] [place] [phone] Rohan Pleitez M.D. [address] [place] [phone] 08/30/2024 3:00 PM CDT Telemedicine Department of Patient Education in [place], [place] [address] [place] [phone] Savanna Hough P.A.-C., P.A. [address] [place] [phone] 09/05/2024 7:30 AM CDT Hospital Encounter Outpatient Procedure Center in [address] [phone] Adrian Hinojosa D.O. [address] [place] [phone] 09/05/2024 7:30 AM CDT Anesthesia Event Outpatient Procedure Center in [address] [phone] Radha Crawford M.D. [address] [place] [phone] 09/05/2024 7:30 AM CDT - 09/05/2024 9:53 AM CDT Surgery Outpatient Procedure Center in [address] [phone] Adrian Hinojosa D.O. [address] [place] [address] ARTHROPLASTY REPLACEMENT TOTAL KNEE 09/11/2024 12:30 PM CDT Comprehensive Visit Department of Physical Medicine and Rehabilitation in [place] [address] [place] [phone] Savanna Hough P.A.-C., P.A. [address] [place] [phone] Keke Alexandra, P.T. [address] [place] [phone] 09/18/2024 10:00 AM CDT Office Visit Department of Orthopedic Surgery in [address] [phone] Savanna Hough P.A.-C., P.A. [address] [place] [phone] Discharge Disposition: Home or Self Care 09/28/2024 11:00 AM CDT Appointment Outpatient Procedure Center in [address] [address] Rohan Pleitez M.D. [address] [place] [phone] 11/03/2024 9:20 AM CDT Appointment Department of Laboratory Medicine in [place], [place] [address] [place] [phone] Qian Carias M.D. [address] [place] [phone] 11/06/2024 2:40 PM CDT Comprehensive Visit Department of Family Medicine, [facility], in [place], [place] [address] [place] [address] Qian Carias M.D. [address] [place] [phone] 11/22/2024 1:30 PM CDT Comprehensive Visit Department of Neurology in [place], [place] [address] [place] [phone] Stuart Bernabe M.D. [address] [place] [phone] Scheduled Procedures Name Priority Associated Diagnoses Date/Ti me ARTHROPLASTY REPLACEMENT TOTAL KNEE Primary Osteoarthritis Knee Right 09/05/2024 7:30 AM CDT documented as of this encounter Visit Diagnoses Not on filedocumented in this encounter Care Teams Nurse Practitioner Adult Relationship Specialty Start Date End Date Qian Carias M.D. [address] [place] [phone] PCP - General Internal Medicine 12/28/17 documented as of this encounter
--- OUTSIDE RECORDS SUMMARY | 2024-08-28 14:43 | XMS_ITS | Encounter Summary ---
Author Organization [facility] Address [address] [place] [address] Care Team Providers Care Bottom Brusher Name Role Phone Qian Carias M.D. Primary Care Provider [phone] Reason for Visit * Outpatient (Routine) - Closed Specialty Diagnoses / Procedures Referred By Zain gold Referred To Contact Diagnoses Neuropathy Peripheral Pain Leg Bilateral Procedures EMG Post, Jarred Scott APRN, C.N.P. [address] [place] [address] Phone: tel: fax: [facility] Region Referral ID Status Reason Start Date Expiration Date Visits Re quested Visits Authorized [id number] Closed 07/13/2024 10/13/2025 1 1 Encounter Details Date Type Department Care Team ([facility] Contact Info) Description 08/15/2024 10:30 AM CDT Diagnostic Department of Neurology in [address] [phone] Stuart Bernabe M.D. [address] [place] [phone] Neuropathy Peripheral; Pain Leg Bilateral Discharge Disposition: Home or Self Care Social History Tobacco Use Types Packs/Day Years Used Date Smoking Tobacco: Never Smokeless Tobacco: Never Alcohol Use Standard Drinks/Week Comments Yes 1 (1 standard drink = 0.6 oz pur e alcohol) 0-1/week [facility] Utilities Answer Date Recorded In the past 12 months has e [employer], gas, oil, or water company threatened to [...] week 11/16/2020 How often do you attend [facility] or sabianism services? More than 4 times per year 11/16/2020 Do you belong to any clubs o r organizations such as roman catholic groups, unions, fraternal or athletic groups, or [...] Answer Date Recorded PHQ-2 Score 0 07/08/2024 [facility] of Occupat ional [facility] - Occupational Stress Questionnaire Answer Date Recorded [...] your living situation today? I have a [facility] place to live 11/01/2023 Education Answer Date Recorded What is the highest level of school you have completed or the highest degree you have received? 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 [address] [place] [phone] Discharge Disposition: Home or Self Care 08/29/2024 3:40 PM CDT Ancillary Procedure Department of Ophthalmology in [place], [place] [address] [place] [phone] 08/29/2024 4:00 PM CDT Hospital Encounter Outpatient Procedure Center in [place], [place] [address] [place] [phone] Rohan Pleitez M.D. [address] [place] [phone] 08/30/2024 3:00 PM CDT Telemedicine Department of Patient Education in [place], [place] [address] [place] [phone] Savanna Hough P.A.-C., P.A. [address] [place] [phone] 09/05/2024 7:30 AM CDT Hospital Encounter Outpatient Procedure Center in [address] [phone] Adrian Hinojosa D.O. [facility] [address] [place] [phone] 09/05/2024 7:30 AM CDT Anesthesia Event Outpatient Procedure Center in [address] [phone] Radha Crawford M.D. [address] [place] [phone] 09/05/2024 7:30 AM CDT - 09/05/2024 9:53 AM CDT Surgery Outpatient Procedure Center in [address] [phone] Adrian Hinojosa D.O. [address] [place] [phone] ARTHROPLASTY REPLACEMENT TOTAL KNEE 09/11/2024 12:30 PM CDT Comprehensive Visit Department of Physical Medicine and Rehabilitation in [address] [place] [address] Savanna Hough P.A.-C., P.A. [address] [place] [phone] Keke Alexandra, P.TJovany [address] [place] [phone] 09/18/2024 10:00 AM CDT Office Visit Department of Orthopedic Surgery in [address] [phone] Savanna Hough P.A.-C., P.A. [address] [place] [phone] Discharge Disposition: Home or Self Care 09/28/2024 11:00 AM CDT Appointment Outpatient Procedure Center in [address] [phone] Rohan Pleitez M.D. [address] [place] [address] 11/03/2024 9:20 AM CDT Appointment Department of Laboratory Medicine in [place], [place] [address] [place] [phone] Qian Carias M.D. [address] [place] [phone] 11/06/2024 2:40 PM CDT Comprehensive Visit Department of Family Medicine, [facility], in [place] [address] [place] [address] Qian Carias M.D. [address] [place] [phone] 11/22/2024 1:30 PM CDT Comprehensive Visit Department of Neurology in [address] [phone] Stuart Bernabe M.D. [address] [place] [address] Scheduled Procedures Name Priority Associated Diagnoses Date/Ti me ARTHROPLASTY REPLACEMENT TOTAL KNEE Primary Osteoarthritis Knee Right 09/05/2024 7:30 AM CDT documented as of this encounter Procedures Procedure Name Priority Date/Time Associated Diagnosis Comments EMG Routine 08/15/2024 9:53 AM CDT Neuropathy Peripheral Pain Leg Bilateral documented in this encounter Results * EMG (08/15/2024 9:53 AM CDT) 08/15/2024 10:3 0 AM CDT Narrative [facility] EMG - 08/15/2024 11:33 AM CDT Table formatting from the original result was not included. 15-Aug-2024 Electromyography Final Report Study Number: 1 EMG System Trainer: Gaurav Bernabe 127 or [phone] Referred by: JARRED SCHOFIELD () Referred for: PN BLE Referral Code: [...] the left foot. N. Seven (127 or [phone]) NERVE CONDUCTIONS Record Rep Normal Normal Distal [...] M.D. at 08/15/2024 11:31:48 AM CDT Jarred Schofield APRN, C.N.P. NEUROLOGY ORDERABLES Final Result EMG documented in this encounter Visit Diagnoses Diagnosis Primary Osteoarthritis Knee Right- Primary Neuropathy Peripheral Pain Leg Bilateral Primary Osteoarthritis Knee Right documented in this encounter Care Teams Bottom Brusher Relationship Specialty Start Date End Date Qian Carias M.D. [address] [place] [phone] PCP - General Internal Medicine 12/28/17 documented as of this encounter
--- OUTSIDE RECORDS SUMMARY | 2024-08-28 14:43 | XMS_ITS | Encounter Summary ---
Author Organization [facility] Address [address] [place] [address] Care Team Providers Care Diagnostic Sales Specialist Name Role Phone Qian Carias M.D. 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 More than 4 times per year 11/16/2020 Do you belong to any clubs o r organizations such as hoahaoism groups, unions, fraternal or athletic groups, or [...] Answer Date Recorded PHQ-2 Score 0 07/08/2024 [facility] of Occupat ional Health - Occupational Stress [...] your living situation today? I have a [facility] place to live 11/01/2023 Education Answer Date Recorded What is the highest level of school you have completed or the highest degree you have received? Some college, no degree 11/07/2018 Comments No Sex and Gender Information Value Date Recorded Sex Assigned at Female 04/09/2017 3:29 PM PAIN MANAGEMENT SPECIALIST Legal Sex Female 8:40 AM PAIN MANAGEMENT SPECIALIST Gender Identity Female 04/09/2017 3:29 PM PAIN MANAGEMENT SPECIALIST Sexual Orientation Straight 04/09/2017 3: 29 PM PAIN MANAGEMENT SPECIALIST documented as of this encounter Plan of Treatment Upcoming Encounters Date Type Department Care Team (Latest Contact Info) Description 08/29/2024 10:45 AM CDT Virtual Visit Preoperative Evaluation Center in [place], [place] [address] [place] [phone] Savanna Hough P.A.-C., P.A. [address] [place] [phone] Discharge Disposition: Home or Self Care 08/29/2024 3:40 PM CDT Ancillary Procedure Department of Ophthalmology in [place], [place] [address] [place] [address] 08/29/2024 4:00 PM CDT Hospital Encounter Outpatient Procedure Center in [place], [place] [address] [place] [address] Rohan Pleitez M.D. [address] [place] [phone] 08/30/2024 3:00 PM CDT Telemedicine Department of Patient Education in [place], [place] [address] [place] [phone] Savanna Hough P.A.-C., P.A. [address] [place] [phone] 09/05/2024 7:30 AM CDT Hospital Encounter Outpatient Procedure Center in [address] [phone] Adrian Hinojosa D.O. [address] [place] [phone] 09/05/2024 7:30 AM CDT Anesthesia Event Outpatient Procedure Center in [address] [phone] Radha Crawford M.D. [address] [place] [phone] 09/05/2024 7:30 AM CDT - 09/05/2024 9:53 AM CDT Surgery Outpatient Procedure Center in [address] [phone] Adrian Hinojosa D.O. [address] [place] [address] [phone] ARTHROPLASTY REPLACEMENT TOTAL KNEE 09/11/2024 12:30 PM CDT Comprehensive Visit Department of Physical Medicine and Rehabilitation in [place], [place] [address] [place] [phone] Savanna Hough P.A.-C., P.A. [address] [place] [phone] Keke Alexandra P.TJovany [address] [place] [phone] 09/18/2024 10:00 AM CDT Office Visit Department of Orthopedic Surgery in [address] [phone] Savanna Hough P.A.-C., P.A. [address] [place] [phone] Discharge Disposition: Home or Self Care 09/28/2024 11:00 AM CDT Appointment Outpatient Procedure Center in [address] [phone] Rohan Pleitez M.D. [address] [place] [phone] 11/03/2024 9:20 AM CDT Appointment Department of Laboratory Medicine in [place] [address] [place] [phone] Qian Carias M.D. [address] [place] [phone] 11/06/2024 2:40 PM CDT Comprehensive Visit Department of Family Medicine, [facility], in [place] [address] [place] [phone] Qian Carias M.D. [address] [place] [address] 11/22/2024 1:30 PM CDT Comprehensive Visit Department of Neurology in [place], [place] [address] [place] [address] Stuart Bernabe M.D. 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 [address] [place] [phone] PCP - General Internal Medicine 12/28/17 documented as of this encounter
--- OUTSIDE RECORDS SUMMARY | 2024-08-28 14:43 | XMS_ITS | Encounter Summary ---
Author Organization [facility] Address [address] [place] [address] Care Team Providers Care Unit Aide Name Role Phone Qian Carias M.D. Primary Care Provider [phone] Encounter Details Date Type Department Care Team (Late st Contact Info) Description 07/31/2024 Ancillary Procedure Department of Ophthalmology Social History Tobacco Use Types Packs/Day Years Used Date Smoking Tobacco: Never Smokeless Tobacco: Never Alcohol Use Standard Drinks/Week Comments Yes 1 (1 standard drink = 0.6 oz pur e alcohol) 0-1/week [facility] Utilities Answer Date Recorded In the past 12 months has e [employer], gas, oil, or water Seeder threatened to shut off services in your [...] How often do you attend chur or gnosticist services? More than 4 times per year 11/16/2020 Do you belong to any clubs o r organizations such as latter-day groups, unions, fraternal or athletic groups, or [...] Answer Date Recorded PHQ-2 Score 0 07/08/2024 [facility] of Occupat ional Health - Occupational Stress [...] your living situation today? I have a [facility] place to live 11/01/2023 Education Answer Date Recorded What is the highest level of school you have completed or the highest degree you have received? Some college, no degree 11/07/2018 Comments No Sex and Gender Information Value Date Recorded Sex Assigned at Female 04/09/2017 3:29 PM FIELD SUPERVISOR SEED PRODUCTION Legal Sex Female 8:40 AM FIELD SUPERVISOR SEED PRODUCTION Gender Identity Female 04/09/2017 3:29 PM FIELD SUPERVISOR SEED PRODUCTION Sexual Orientation Straight 04/09/2017 3: 29 PM FIELD SUPERVISOR SEED PRODUCTION documented as of this encounter Plan of Treatment Upcoming Encounters Date Type Department Care Team (Latest Contact Info) Description 08/29/2024 10:45 AM CDT Virtual Visit Preoperative Evaluation Center in [place], [place] [address] [place] [phone] Savanna Hough P.A.-C., P.A. [address] [place] [phone] Discharge Disposition: Home or Self Care 08/29/2024 3:40 PM CDT Ancillary Procedure Department of Ophthalmology in [place], [place] [address] [place] [address] 08/29/2024 4:00 PM CDT Hospital Encounter Outpatient Procedure Center in [place], [place] [address] [place] [address] Rohan Pleitez M.D. [address] [place] [address] 08/30/2024 3:00 PM CDT Telemedicine Department of Patient Education in [place], [place] [address] [place] [address] Savanna Hough P.A.-C., P.A. [address] [place] [place] [phone] 09/05/2024 7:30 AM CDT Hospital Encounter Outpatient Procedure Center in [address] [phone] Adrian Hinojosa D.O. [address] [place] [phone] 09/05/2024 7:30 AM CDT Anesthesia Event Outpatient Procedure Center in [address] [phone] Radha Crawford M.D. [address] [place] [phone] 09/05/2024 7:30 AM CDT - 09/05/2024 9:53 AM CDT Surgery Outpatient Procedure Center in [address] [phone] Adrian Hinojosa D.O. [address] [place] [phone] ARTHROPLASTY REPLACEMENT TOTAL KNEE 09/11/2024 12:30 PM CDT Comprehensive Visit Department of Physical Medicine and Rehabilitation in [address] [place] [address] Savanna Hough P.A.-C., P.A. [address] [place] [phone] Keke Alexandra P.T. [address] [place] [phone] 09/18/2024 10:00 AM CDT Office Visit Department of Orthopedic Surgery in [address] [phone] Savanna Hough P.A.-C., P.A. [address] [place] [place] [phone] Discharge Disposition: Home or Self Care 09/28/2024 11:00 AM CDT Appointment Outpatient Procedure Center in [address] [phone] Rohan Pleitez M.D. [address] [place] [phone] 11/03/2024 9:20 AM CDT Appointment Department of Laboratory Medicine in [place] [address] [place], [place] [phone] Qian Carias M.D. [address] [place] [phone] 11/06/2024 2:40 PM CDT Comprehensive Visit Department of Family Medicine, [facility], in [place] [address] [place], [place] [phone] Qian Carias M.D. [address] [place] [phone] 11/22/2024 1:30 PM CDT Comprehensive Visit Department of Neurology in [place], [place] [address] [place] [phone] Stuart Bernabe M.D. [address] [place] [address] Scheduled Procedures Name Priority Associated Diagnoses Date/Ti me ARTHROPLASTY REPLACEMENT TOTAL KNEE Primary Osteoarthritis Knee Right 09/05/2024 7:30 AM CDT documented as of this encounter Procedures Procedure Name Priority Date/Time Associated Diagnosis Comments OPHTHALMOLOGY IMAGE EXAM Routine 07/31/2024 12:00 AM CDT documented in this encounter Results * Eyes Spectralis OCT-Ophthalmology Image Exam (07/31/2024 12:00 AM CDT) Narrative [facility] - 07/31/2024 1:28 PM CDT This order has been created and auto-finalized to support the import of images acquired without order. The clinical documentation to support these images can be found on the encounter that produced images. us Provider Not In System IMG NON RAD IMAGING PROCE DURES Final Result [facility] NA documented in this encounter Visit Diagnoses Not on filedocumented in this encounter Care Teams Unit Aide Relationship Specialty Start Date End Date Qian Carias M.D. [address] [place] [phone] PCP - General Internal Medicine 12/28/17 documented as of this encounter
--- OUTSIDE RECORDS SUMMARY | 2024-08-28 14:43 | XMS_ITS | Encounter Summary ---
Author Organization [facility] Address [address] [place] [address] Care Team Providers Care International Marketing Manager Name Role Phone Qian Carias M.D. Primary Care Provider [phone] Encounter Details Date Type Department Care Team (Latest Contact Info) Description 07/27/2024 2:30 PM CDT Procedure visit Department of Ophthalmology in [place], [place] [address] [place] [address] Rohan Pleitez M.D. [address] [place] [phone] Suri Hicks, C.O.A. 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 More than 4 times per year 11/16/2020 Do you belong to any clubs o r organizations such as adventist groups, unions, fraternal or athletic groups, or [...] Answer Date Recorded PHQ-2 Score 0 07/08/2024 [facility] [place] of Occupat ional Health - Occupational Stress [...] your living situation today? I have a [facility] place to live 11/01/2023 Education Answer Date Recorded What is the highest level of school you have completed or the highest degree you have received? Some college, no degree 11/07/2018 Comments No Sex and Gender Information Value Date Recorded Sex Assigned at Female 04/09/2017 3:29 PM RN HEMO DIALYSIS Legal Sex Female 8:40 AM RN HEMO DIALYSIS Gender Identity Female 04/09/2017 3:29 PM RN HEMO DIALYSIS Sexual Orientation Straight 04/09/2017 3: 29 PM RN HEMO DIALYSIS documented as of this encounter Progress Notes * Suri Hicks, C.O.A. - 07/27/2024 2:30 PM CDT Patient was assessed for Angiogram. Verified education and informed consent has been completed. Patient fits discharge criteria; patient sent to have IV removed. Dr. Pleitez is the authorizing prescriber who directed the protocol. Patient's creatinine level is Lab Results Component Value Date CREATININE 0.77 07/13/2024 Adverse reaction noted: none. documented in this encounter Plan of Treatment Upcoming Encounters Date Type Department Care Team (Latest Contact Info) Description 08/29/2024 10:45 AM CDT Virtual Visit Preoperative Evaluation Center in [address] [phone] Savanna Hough P.A.-C., P.A. [address] [place] [phone] Discharge Disposition: Home or Self Care 08/29/2024 3:40 PM CDT Ancillary Procedure Department of Ophthalmology in [place], [place] [address] [place] [address] 08/29/2024 4:00 PM CDT Hospital Encounter Outpatient Procedure Center in [place], [place] [address] [place] [address] Rohan Pleitez M.D. [address] [place] [phone] 08/30/2024 3:00 PM CDT Telemedicine Department of Patient Education in [place], [place] [address] [place] [address] Savanna Hough P.A.-C., P.A. [address] [place] [phone] 09/05/2024 7:30 AM CDT Hospital Encounter Outpatient Procedure Center in [address] [phone] Adrian Hinojosa D.O. [address] [place] [phone] 09/05/2024 7:30 AM CDT Anesthesia Event Outpatient Procedure Center in [address] [phone] Radha Crawford M.D. [address] [place] [phone] 09/05/2024 7:30 AM CDT - 09/05/2024 9:53 AM CDT Surgery Outpatient Procedure Center in [address] [phone] Adrian Hinojosa D.O. [address] [place] [phone] ARTHROPLASTY REPLACEMENT TOTAL KNEE 09/11/2024 12:30 PM CDT Comprehensive Visit Department of Physical Medicine and Rehabilitation in [address] [place] [phone] Savanna Hough P.A.-C., P.A. [address] [place] [phone] Keke Alexandra, P.TJovany [address] [place] [phone] 09/18/2024 10:00 AM CDT Office Visit Department of Orthopedic Surgery in [address] [phone] Savanna Hough P.A.-C., P.A. [address] [place] [phone] Discharge Disposition: Home or Self Care 09/28/2024 11:00 AM CDT Appointment Outpatient Procedure Center in [address] [phone] Rohan Pleitez M.D. [address] [place] [address] 11/03/2024 9:20 AM CDT Appointment Department of Laboratory Medicine in [place] [address] [place] [address] Qian Carias M.D. [address] [place] [phone] 11/06/2024 2:40 PM CDT Comprehensive Visit Department of Family Medicine, [facility], in [address] [place] [address] Qian Carias M.D. [address] [place] [phone] 11/22/2024 1:30 PM CDT Comprehensive Visit Department of Neurology in [address] [phone] Stuart Bernabe M.D. 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) Primary Osteoarthritis Knee Right documented in this encounter Administered Medications Active Administered Medications - up to 3 most recent administrations Medication Order MAR Action Action Date Dose Rate Site sodium chloride 0.9 % injection 3 mL 3 mL, intravenous, As needed, line care, As needed for line care, Peripheral Intravenous Catheter and Rapid Infusion Catheter, Starting on Wed06/30/24 at 1003 Given 07/27/2024 3:15 PM CDT 3 mL Inactive Administered Medications - up to 3 most recent administrations Medication Order MAR Action Action Date Dose Rate Site fluorescein 100 mg/mL (10 %) injection 250 mg 250 mg, intravenous, Once in imaging, contrast, Starting on Wed06/30/24 at 1003, For 1 dose Given 07/27/2024 3:14 PM CDT 250 mg documented in this encounter Care Teams International Marketing Manager Relationship Specialty Start Date End Date Qian Carias M.D. [address] [place] [phone] PCP - General Internal Medicine 12/28/17 documented as of this encounter
--- OUTSIDE RECORDS SUMMARY | 2024-08-28 14:43 | XMS_ITS | Encounter Summary ---
Author Organization [facility] Address [address] [place] [address] Care Team Providers Care Dental Floss Packer Name Role Phone Qian Carias M.D. Primary Care Provider [phone] Reason for Referral * Outpatient (Routine) - Closed Specialty Diagnoses / Procedures Referred By Contac t Referred To Contact Diagnoses Neuropathy Peripheral Pain Leg Bilateral Osteoporosis Procedures DX Lumbar Spine 2-3 Views PostMark APRN, C.N.P. [address] [place] [address] Phone: tel: fax: [facility] Region Referral ID Status Reason Start Date Expiration Date Visits Re quested Visits Authorized [id number] Closed 07/13/2024 10/13/2025 1 1 Reason for Visit * Outpatient (Routine) - Closed Specialty Diagnoses / Procedures Referred By Contac t Referred To Contact Diagnoses Neuropathy Peripheral Pain Leg Bilateral Osteoporosis Procedures DX Lumbar Spine 2-3 Views Mark Schofield APRN, C.N.P. [address] [place] [phone] Phone: tel: fax: [facility] Region Referral ID Status Reason Start Date Expiration Date Visits Re quested Visits Authorized [id number] Closed 07/13/2024 10/13/2025 1 1 Encounter Details Date Type Department Care Team (Latest Contact Info) Description 08/01/2024 9:53 AM CDT - 08/01/2024 11:59 PM CDT Hospital Encounter Department of Radiology in [place], [place] [address] Mark Schofield APRN, C.N.P. [address] [place] [address] Neuropathy Peripheral; Pain Leg Bilateral; Osteoporosis Discharge Disposition: Home or Self Care Social History Tobacco Use Types Packs/Day Years Used Date Smoking Tobacco: Never Smokeless Tobacco: Never Alcohol Use Standard Drinks/Week Comments Yes 1 (1 standard drink = 0.6 oz pur e alcohol) 0-1/week [facility] Utilities Answer Date Recorded In the past 12 months has e [employer], gas, oil, or water [employer] threatened to shut off services in your [...] How often do you attend chur or zoroastrian services? More than 4 times per year 11/16/2020 Do you belong to any clubs o r organizations such as judaism groups, unions, fraternal or athletic groups, or [...] Answer Date Recorded PHQ-2 Score 0 07/08/2024 [facility] of Occupat ional [facility] - Occupational Stress Questionnaire Answer Date [...] living situation today? I have a [facility] place to live 11/01/2023 Education Answer Date Recorded What is the highest level of school you have completed or the highest degree you have received? Some college, no degree 11/07/2018 Comments No Sex and Gender Information Value Date Recorded Sex Assigned at Female 04/09/2017 3:29 PM FACSIMILE OPERATOR Legal Sex Female 8:40 AM FACSIMILE OPERATOR Gender Identity Female 04/09/2017 3:29 PM FACSIMILE OPERATOR Sexual Orientation Straight 04/09/2017 3: 29 PM FACSIMILE OPERATOR documented as of this encounter Medications at Time of Discharge acetaminophen (TYLENOL 8 HR) 650 mg ER tablet Take 1,300 mg by mouth daily as needed for pain. amLODIPine (Norvasc) 5 mg tabletIndications :Hypertensive Chronic Kidney Disease With Stage 1 Through Stage 4 Chronic Kidney Disease, Or Unspecified Chronic Kidney Disease Take 1 tablet (5 mg total) by mouth daily. 90 tablet 3 05/30/2024 atorvastatin (Lipitor) 20 mg tablet Take 1 tablet (20 mg total) by mouth daily. 90 tablet 3 11/04/2023 calcium carbonate (for_TUMS E-X) 750 mg (300 mg calcium) chewable tablet Chew 1 tablet daily as needed. gabapentin (Neurontin) 100 mg capsule Take 2 capsules (200 mg total) by mouth 3 (three) times a day. 540 capsule 3 11/04/2023 lactase (Lactaid) 3,000 Unit tablet Take 6,000 Units by mouth daily. levothyroxine 88 mcg tabletIndications :Hypothyroidism Post Radio Iodine Take 1 tablet (88 mcg total) by mouth daily. 90 tablet 3 03/13/2024 lisinopriL 40 mg tabletIndications :Hypertension And Chronic Kidney Disease Stage 3 (HCC) Take 1 tablet (40 mg total) by mouth daily. 90 tablet 3 11/02/2023 documented as of this encounter Plan of Treatment Upcoming Encounters Date Type Department Care Team (Latest Contact Info) Description 08/29/2024 10:45 AM CDT Virtual Visit Preoperative Evaluation Center in [address] [phone] Savanna Hough P.A.-C., P.A. [address] [place] [phone] Discharge Disposition: Home or Self Care 08/29/2024 3:40 PM CDT Ancillary Procedure Department of Ophthalmology in [place], [place] [address] [place] [phone] 08/29/2024 4:00 PM CDT Hospital Encounter Outpatient Procedure Center in [place], [place] [address] [place] [phone] Rohan Pleitez M.D. [address] [place] [phone] 08/30/2024 3:00 PM CDT Telemedicine Department of Patient Education in [place], [place] [address] [place] [phone] Savanna Hough P.A.-C., P.A. [address] [place] [phone] 09/05/2024 7:30 AM CDT Hospital Encounter Outpatient Procedure Center in [address] [phone] Adrian Hinojosa D.O. [address] [place] [phone] 09/05/2024 7:30 AM CDT Anesthesia Event Outpatient Procedure Center in [address] [phone] Radha Crawford M.D. [address] [place] [phone] 09/05/2024 7:30 AM CDT - 09/05/2024 9:53 AM CDT Surgery Outpatient Procedure Center in [address] [phone] Adrian Hinojosa D.O. [address] [place] [phone] ARTHROPLASTY REPLACEMENT TOTAL KNEE 09/11/2024 12:30 PM CDT Comprehensive Visit Department of Physical Medicine and Rehabilitation in [place] [address] [place] [phone] Savanna Hough P.A.-C., P.A. [address] [place] [phone] Keke Alexandra, P.T. [address] [place] [phone] 09/18/2024 10:00 AM CDT Office Visit Department of Orthopedic Surgery in [address] [phone] Savanna Hough P.A.-CJovany, P.A. [address] [place] [phone] Discharge Disposition: Home or Self Care 09/28/2024 11:00 AM CDT Appointment Outpatient Procedure Center in [address] [phone] Rohan Pleitez M.D. [address] [place] [address] 11/03/2024 9:20 AM CDT Appointment Department of Laboratory Medicine [place] [address] [place] [phone] Qian Carias M.D. [address] [place] [phone] 11/06/2024 2:40 PM CDT Comprehensive Visit Department of Family Medicine, [facility], in [place] [address] [place] [address] Qian Carias M.D. [address] [place] [phone] 11/22/2024 1:30 PM CDT Comprehensive Visit Department of Neurology in [address] [phone] Stuart Bernabe M.D. [address] [place] [phone] Scheduled Procedures Name Priority Associated Diagnoses Date/Ti me ARTHROPLASTY REPLACEMENT TOTAL KNEE Primary Osteoarthritis Knee Right 09/05/2024 7:30 AM CDT documented as of this encounter Procedures Procedure Name Priority Date/Time Associated Diagnosis Comments DX LUMBAR SPINE 2-3 VIEWS RAD - Routine (most inpatients and all outpatients) 08/01/2024 10:52 AM CDT Neuropathy Peripheral Pain Leg Bilateral Osteoporosis documented in this encounter Results * DX Lumbar Spine 2-3 Views (08/01/2024 [...] arthropathy greatest in the lower lumbar spine. Mark Schofield APRN, C.N.P. IMG DIAGNOSTIC IMAGI NG PROCEDURES Final Result documented in this encounter Visit Diagnoses Diagnosis Primary Osteoarthritis Knee Right- Primary Neuropathy Peripheral Pain Leg Bilateral Osteoporosis Primary Osteoarthritis Knee Right documented in this encounter Care Teams Dental Floss Packer Relationship Specialty Start Date End Date Qian Carias M.D. [address] [place] [phone] PCP - General Internal Medicine 12/28/17 documented as of this encounter
--- OUTSIDE RECORDS SUMMARY | 2024-08-28 14:43 | XMS_ITS | Encounter Summary ---
Author Organization [facility] Address [address] [place] [address] Care Team Providers Care Casting Wheel Operator Name Role Phone Qian Carias M.D. Primary Care Provider [phone] Reason for Referral * Outpatient (Routine) - Closed Specialty Diagnoses / Procedures Referred By Hilarioac t Referred To Contact Diagnoses Edema Pedal Unspecified Open Wound Left Lower Leg Sequela Unspecified Open Wound Right Lower Leg Sequela Pain Leg Bilateral Procedures Lower Extremity Arterial (GALDINO) - Standard Protocol Mark Schofield APRN, C.N.P. [address] [place] [phone] Phone: tel: fax: [facility] Region Referral ID Status Reason Start Date Expiration Date Visits Re quested Visits Authorized [id number] Closed 07/13/2024 10/13/2025 1 1 Reason for Visit * Outpatient (Routine) - Closed Specialty Diagnoses / Procedures Referred By Contdaksha gold Referred To Contact Diagnoses Edema Pedal Unspecified Open Wound Left Lower Leg Sequela Unspecified Open Wound Right Lower Leg Sequela Pain Leg Bilateral Procedures Lower Extremity Arterial (GALDINO) - Standard Protocol Mark Schofield APRN, C.N.P. [address] [place] [address] Phone: tel: fax: [facility] Region Referral ID Status Reason Start Date Expiration Date Visits Re quested Visits Authorized [id number] Closed 07/13/2024 10/13/2025 1 1 Encounter Details Date Type Department Care Team (Latest Contact Info) Description 08/01/2024 9:50 AM CDT - 08/01/2024 9:52 AM CDT Hospital Encounter Department of Radiology in [place], [place] [address] [place] [phone] Post, Mark Scott APRN, C.N.P. [address] [place] [address] Edema Pedal; Unspecified Open Wound Left Lower Leg Sequela; Unspecified Open Wound Right Lower Leg Sequela; Pain Leg Bilateral Discharge Disposition: Home or Self Care Social History Tobacco Use Types Packs/Day Years Used Date Smoking Tobacco: Never Smokeless Tobacco: Never Alcohol Use Standard Drinks/Week Comments Yes 1 (1 standard drink = 0.6 oz pur e alcohol) 0-1/week [facility] Utilities Answer Date Recorded In the past 12 months has e electric, gas, oil, or water Chatterous threatened to shut off services in your [...] How often do you attend chur or bahai services? More than 4 times per year 11/16/2020 Do you belong to any clubs o r organizations such as religious groups, unions, fraternal or athletic groups, or [...] Answer Date Recorded PHQ-2 Score 0 07/08/2024 [facility] Occupat ional Health - Occupational Stress [...] living situation today? I have a [facility] place to live 11/01/2023 Education Answer Date Recorded What is the highest level of school you have completed or the highest degree you have received? Some college, no degree 11/07/2018 Comments No Sex and Gender Information Value Date Recorded Sex Assigned at Female 04/09/2017 3:29 PM CURING ROOM WORKER Legal Sex Female 8:40 AM CURING ROOM WORKER Gender Identity Female 04/09/2017 3:29 PM CURING ROOM WORKER Sexual Orientation Straight 04/09/2017 3: 29 PM CURING ROOM WORKER documented as of this encounter Medications at [...] CDT Virtual Visit Preoperative Evaluation Center in [place], [place] [address] [place] [phone] Savanna Hough P.A.-C., P.A. [address] [place] [phone] Discharge Disposition: Home or Self Care 08/29/2024 3:40 PM CDT Ancillary Procedure Department of Ophthalmology in [place], [place] [address] [place] [address] 08/29/2024 4:00 PM CDT Hospital Encounter Outpatient Procedure Center in [place], [place] [address] [place] [address] Rohan Pleitez M.D. [address] [place] [phone] 08/30/2024 3:00 PM CDT Telemedicine Department of Patient Education in [place], [place] [address] [place] [phone] Savanna Hough P.A.-C., P.A. [address] [place] [phone] 09/05/2024 7:30 AM CDT Hospital Encounter Outpatient Procedure Center in [address] [phone] Adrian Hinojosa D.O. [address] [place] [phone] 09/05/2024 7:30 AM CDT Anesthesia Event Outpatient Procedure Center in [address] [phone] Radha Crawford M.D. [address] [place] [phone] 09/05/2024 7:30 AM CDT - 09/05/2024 9:53 AM CDT Surgery Outpatient Procedure Center in [address] [phone] Adrian Hinojosa D.O. [address] [place] [phone] ARTHROPLASTY REPLACEMENT TOTAL KNEE 09/11/2024 12:30 PM CDT Comprehensive Visit Department of Physical Medicine and Rehabilitation in [address] [place] [phone] Savanna Hough P.A.-C., P.A. [address] [place] [phone] Keke Alexandra, P.TJovany [address] [place] [phone] 09/18/2024 10:00 AM CDT Office Visit Department of Orthopedic Surgery in [address] [phone] Savanna Hough P.A.-CJovany, P.A. [address] [place] [phone] Discharge Disposition: Home or Self Care 09/28/2024 11:00 AM CDT Appointment Outpatient Procedure Center in [address] [phone] Rohan Pleitez M.D. [address] [place] [phone] 11/03/2024 9:20 AM CDT Appointment Department of Laboratory Medicine in [place], [place] [address] [place] [phone] Qian Carias M.D. [address] [place] [phone] 11/06/2024 2:40 PM CDT Comprehensive Visit Department of Family Medicine, [facility], in [place], [place] [address] [place] [phone] Qian Carias M.D. [address] [place] [phone] 11/22/2024 1:30 PM CDT Comprehensive Visit Department of Neurology in [place], [place] [address] [place] [phone] Stuart Bernabe M.D. [address] [place] [phone] Scheduled Procedures Name Priority Associated Diagnoses Date/Ti me ARTHROPLASTY REPLACEMENT TOTAL KNEE Primary Osteoarthritis Knee Right 09/05/2024 7:30 AM CDT documented as of this encounter Procedures Procedure Name Priority Date/Time Associated Diagnosis Comments LOWER EXTREMITY ARTERIAL - STANDARD PROTOCOL Routine 08/01/2024 12:03 PM CDT Edema Pedal Unspecified Open Wound Left Lower Leg Sequela Unspecified Open Wound Right Lower Leg Sequela Pain Leg Bilateral documented in this encounter Results * LOWER EXTREMITY ARTERIAL - STANDARD PROTOCOL [...] TBIs. No previous study for comparison. us Mark Schofield APRN, C.N.P. CV VASCULAR PROCEDUR ES Final Result documented in this encounter Visit Diagnoses Diagnosis Primary Osteoarthritis Knee Right- Primary Edema Pedal Unspecified Open Wound Left Lower Leg Sequela Unspecified Open Wound Right Lower Leg Sequela Pain Leg Bilateral Primary Osteoarthritis Knee Right documented in this encounter Care Teams Casting Wheel Operator Relationship Specialty Start Date End Date Qian Carias M.D. [address] [place] [phone] PCP - General Internal Medicine 12/28/17 documented as of this encounter
--- OUTSIDE RECORDS SUMMARY | 2024-08-28 14:43 | XMS_ITS | Encounter Summary ---
Author Organization [facility] Address [address] [place] [address] Care Team Providers Care Arboriculture Instructor Name Role Phone Qian Carias M.D. Primary Care Provider [phone] Reason for Visit * Reason Comments Pre-op Exam 09/05 Right kneeRW * Outpatient (Routine) - Closed Specialty Diagnoses / Procedures Referred By Zain gold Referred To Contact Family Medicine Diagnoses Primary Osteoarthritis Knee Right Savanna Hough P.A.-C., P.A. [address] [place] [address] Phone: tel: fax: [facility] Region Referral ID Status Reason Start Date Expiration Date Visits Re quested Visits Authorized [id number] Closed 07/18/2024 01/17/2026 1 1 Encounter Details Date Type Department Care Team (Latest Contact Info) Description 08/08/2024 3:20 PM CDT Office Visit Department of Family Medicine, [facility], in [place], [place] [address], [place] [phone] Qian Carias M.D. [address] [place] [address] Preoperative Exam (Primary Dx); Primary Osteoarthritis Knee [...] Falling Discharge Disposition: Home or Self Care Social History Tobacco Use Types Packs/Day Years Used Date Smoking Tobacco: Never Smokeless Tobacco: Never Alcohol Use Standard Drinks/Week Comments Yes 1 (1 standard drink = 0.6 oz pur e alcohol) 0-1/week [facility] Utilities Answer Date Recorded In the past 12 months has e electric, gas, oil, or water [employer] threatened to shut off services in your [...] How often do you attend chur or scientology services? More than 4 times per year 11/16/2020 Do you belong to any clubs o r organizations such as anglican groups, unions, fraternal or athletic groups, or [...] Answer Date Recorded PHQ-2 Score 0 07/08/2024 [facility] [place] - Occupational Stress Questionnaire Answer Date Recorded [...] Sex Assigned at Female 04/09/2017 3:29 PM LOAD TEST MECHANIC Legal Sex Female 8:40 AM LOAD TEST MECHANIC Gender Identity Female 04/09/2017 3:29 PM LOAD TEST MECHANIC Sexual Orientation Straight 04/09/2017 3: 29 PM LOAD TEST MECHANIC documented as of this encounter Last Filed Vital Signs Vital Sign Reading Time Taken Comments Blood Pressure 154/94 08/08/2024 3:04 PM CDT Pulse 60 08/08/2024 3:04 PM CDT Temperature 36.4 C (97.5 F) 08/08/2024 2:57 PM CDT Respiratory Rate - - Oxygen Saturation - - Inhaled Oxygen Concentration - - Weight 91.3 kg (201 lb 4.5 oz) 08/08/2024 2:57 P M CDT Height 178 cm (5' 10.08) 08/08/2024 2:57 PM CDT Body Mass Index 28.82 08/08/2024 2:57 PM CDT documented in this encounter Patient Instructions * Patient Instructions* Qian Carias M.D. - 08/08/2024 3:20 PM CDT PREOPERATIVE MEDICATION INSTRUCTIONS Do not take ASPIRIN, or NSAIDs (for example Ibuprofen, Advil, Motrin, Naproxen or Naprosyn, Aleve, Celebrex, Mobic) for 10 days prior to the surgery. You may take Tylenol (acetaminophen) containing products as needed for pain prior to surgery. Do not take these meds on the morning of surgery: lisinopril Take these medications on the morning of surgery: gabapentin, amlodipine, atorvastatin, levothyroxine Call the clinic and the hospital (surgery scheduling) if you have any new concerns or health problems before the scheduled surgery. documented in this encounter H&P Notes * Qian Carias M.D. - 08/08/2024 3:20 PM CDT SUBJECTIVE Soraya Alexandra [phone] DATE OF SURGERY: 09/05/24 REFERRAL SOURCE/PERFORMING SURGEON: Dr. Hinojosa CHIEF COMPLAINT/REASON FOR VISIT Preoperative consultation for right joint replacement. HISTORY OF PRESENT ILLNESS Progressive DJD in both knees. REVIEW OF SYSTEMS There is no history of difficulty with anesthesia, bleeding tendencies, congestive heart failure, heart valve disease, heart arrhythmias, chest pain or dyspnea. She had one provoked DVT after 2 days of prolonged car travel. The patient is able to exercise greater than 4 METS without any chest pain,dyspnea or extreme fatigue. Patient denies any recent illness. No fevers or signs of upper respiratory tract infection. The patient denies previous serious reactions to anesthesia including malignant hyperthermia. She does get nausea and vomiting after anesthesia. Home blood pressure in the 120s/80 range on verified accurate cuff. The patient's only recent steroid use: bilateral knee injections 04/18/24. Review of systems is otherwise negative with the exceptions of the positives/negatives listed above. MEDICAL HISTORY Medical History[1] Problem List[2] SURGICAL HISTORY Surgical History[3] ALLERGIES/CONTRAINDICATIONS Allergies[4] CURRENT MEDICATIONS Medications Ordered Prior to Encounter[5] SOCIAL HISTORY Social History Social History Narrative Not on file FAMILY HISTORY No family history of difficulty with anesthesia, bleeding tendencies or blood clots. OBJECTIVE VITAL SIGNS BP (!) 154/94 (BP Location: Left arm, Patient Position: Sitting, Cuff Size: Regular) Pulse 60 Temp 36.4 ??C Ht 178 cm Wt 91.3 kg BMI 28.82 kg/m?? JERRELL Score 3 PHYSICAL EXAMINATION General: Awake, alert and oriented x 3, comfortable. Affect normal. HEENT: Pupils equal, round, reactive to light. Extraocular movements intact. Conjunctivae not injected. External auditory canals are clear. Tympanic membranes are normal without erythema. Nasopharynxwithout erythema. No tonsillar hypertrophy or exudate. Mucous membranes are moist. Dental hygiene good. Neck supple without lymphadenopathy. Heart: Regular rate and rhythm. No murmurs, gallops or rubs. No carotid bruits. No edema. Lungs: Clear to auscultation bilaterally. Abdomen: Positive bowel sounds in all four quadrants. Soft, nondistended, nontender. No masses. Extremities: Warm and well perfused. No cyanosis or edema. Skin: No erythema or rashes. No open sores or ulcers. DIAGNOSTICS Results for orders placed or performed in visit on 07/13/24 ECG 12 Lead Collection Time: 07/13/24 12:05 PM Result Value Ref Range Ventricular Rate ECG/Min 68 BPM NJ Interval 166 ms QRSD Interval 100 ms QT Interval 412 ms QTC Interval 438 ms P Laurel 78 degrees R Laurel -46 degrees T Wave Laurel 10 degrees CBC with Differential, Blood Collection Time: 07/13/24 12:17 PM Result Value Ref Range Hemoglobin 13.9 11.6 - 15.0 g/dL Hematocrit 42.8 35.5 - 44.9 % Erythrocytes 4.22 3.92 - 5.13 x10(12)/L MCV 101.4 (H) 78.2 - 97.9 fL RBC Distrib Width 13.3 12.2 - 16.1 % Platelet Count 243 157 - 371 x10(9)/L Leukocytes 6.1 3.4 - 9.6 x10(9)/L Neutrophils 3.73 1.56 - 6.45 x10(9)/L Lymphocytes 1.71 0.95 - 3.07 x10(9)/L Monocytes 0.44 0.26 - 0.81 x10(9)/L Eosinophils 0.16 0.03 - 0.48 x10(9)/L Basophils 0.04 0.01 - 0.08 x10(9)/L Comprehensive Metabolic Panel Collection Time: 07/13/24 12:17 PM Result Value Ref Range Potassium, P 3.6 3.6 - 5.2 mmol/L Sodium, P 141 135 - 145 mmol/L Chloride, P 105 98 - 107 mmol/L Bicarbonate, P 27 22 - 29 mmol/L Anion Gap, P 9 7 - 15 BUN (Blood Urea Nitrogen), P 15 6 - 21 mg/dL Creatinine 0.77 0.59 - 1.04 mg/dL Estimated GFR (eGFR) 81 >=60 mL/min/BSA Calcium, Total, P 9.2 8.8 - 10.2 mg/dL Glucose, P 92 70 - 140 mg/dL Protein, Total, P 8.0 (H) 6.3 - 7.9 g/dL Albumin, P 4.2 3.5 - 5.0 g/dL Aspartate Aminotransferase (AST), P 21 8 - 43 U/L Alkaline Phosphatase, P 82 35 - 104 U/L Alanine Aminotransferase (ALT), P 12 7 - 45 U/L Bilirubin, Total, P 0.5 0.0 - 1.2 mg/dL Ferritin Collection Time: 07/13/24 12:17 PM Result Value Ref Range Ferritin, S 317 11 - 328 mcg/L Iron and Total Iron-Binding Capacity Collection Time: 07/13/24 12:17 PM Result Value Ref Range Iron 119 35 - 145 mcg/dL Total Iron Binding Capacity 270 250 - 400 mcg/dL Percent Saturation 44 14 - 50 % Magnesium Collection Time: 07/13/24 12:17 PM Result Value Ref Range Magnesium, P 2.1 1.7 - 2.3 mg/dL Vitamin B12 Assay Collection Time: 07/13/24 12:17 PM Result Value Ref Range Vitamin B12 Assay, S 231 (L) 232 - 1245 ng/L NT-Pro B-Type Natriuretic Peptide (BNP) Collection Time: 07/13/24 12:17 PM Result Value Ref Range NT-Pro BNP 444 <=540 pg/mL Vitamin D, Immunoassay, Total, Serum Collection Time: 07/13/24 12:17 PM Result Value Ref Range Vitamin D, Immunoassay, Total, S 32 20 - 80 ng/mL ASSESSMENT / PLAN #1 Preoperative Exam There is no evidence of decompensated cardiac or pulmonary disease. No further evaluation is indicated prior to planned surgery. DVT risk: history of prior DVT (provoked) Diabetes: no Delirium risk: low Perioperative medication management: Patient advised to stop nonsteroidal anti- inflammatory medications 10 days prior to surgery. Patient advised which medications to take on morning of surgery. #2 Primary Osteoarthritis Knee Right As above. - Primary Care - [facility] consult (clinic) #3 Hypertensive Chronic Kidney Disease With Stage 1 Through Stage 4 Chronic Kidney Disease, Or Unspecified Chronic Kidney Disease Well controlled. Continue present medications. Reviewed management goals, recent lab results, medications and side effects with patient. #4 Unspecified Open Wound Left Lower Leg Sequela #5 Unspecified Open Wound Right Lower Leg Sequela Resolved at this time. No evidence of significant PVD on recent LE GALDINO. #6 Neuropathy Peripheral Reviewed recent EMG with no significant large fiber neuropathy. Left fibular low amplitude motor response noted, not thought to be clinically significant. 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 Blood pressure well controlled, on statin, followed by ophthalmology. #8 Chronic Kidney Disease (CKD), Stage 3 Unspecified (HCC) Stable with eGFR 81, no changes to current management. #9 History Of Falling Mechanical fall though peripheral neuropathy and DJD are risks for future falls. Patient is appropriately cautious. Appreciate PT support perioperatively. Return to clinic as needed. I spent 35 minutes on the date of this visit in medical record review, formulation and coordinationof care, and face to face or virtual patient care regarding the above conditions. Qian Carias M.D. [1] Past Medical History: Diagnosis Date Atrial Fibrillation Unspecified (HCC) 09/21/2011 Chronic Kidney Disease Stage 3 Glomerular Filtration Rate 30 To 59 04/13/2017 Graves' Disease 03/19/2014 Hypertension NOS Hyperthyroidism 2010 Hypothyroidism Migraine Headache Post Operative Nausea/Vomiting Sickness Motion Personal History [2] Patient Active Problem List Diagnosis Hypertensive Chronic Kidney Disease With Stage 1 Through Stage 4 Chronic Kidney Disease, Or Unspecified Chronic Kidney Disease Dermatitis Photocontact Chronic Kidney Disease (CKD), Stage 3a Glomerular Filtration Rate (GFR) 45 To 59 (HCC) Hypothyroidism 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 Hypothyroidism Infarct Cerebral Lacunar Multiple Personal History Neuropathy Peripheral Thrombosis Deep Vein Personal History Osteoporosis Graves' Disease Deformity Limb Congenital Primary Osteoarthritis Knee Right 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 COLONOSCOPY N/A 02/15/2018 Procedure: COLONOSCOPY; Surgeon: David Cui M.D.; Location: [facility] OTHER CONVERTED SHX (SEE COMMENT) N/A 03/06/2014 >Sclerotherapy. OTHER CONVERTED SHX (SEE COMMENT) N/A 01/22/2015 Other Notes: left knee lipomatous tumor excision OTHER CONVERTED SHX (SEE COMMENT) N/A 11/16/2005 >Removal of bilateral ruptured breast implants. Bilateral capsulectomy. [4] Allergies Allergen Reactions Amoxicillin Hives (Reselect Reaction) House Dust Mite Other (see comments) No reaction noted in [employer] [5] Current Outpatient Medications on File Prior to Visit Medication Sig Dispense Refill acetaminophen (TYLENOL 8 HR) 650 mg ER tablet Take 1,300 mg by mouth daily as needed for pain. amLODIPine (Norvasc) 5 mg tablet Take 1 tablet (5 mg total) by mouth daily. 90 tablet 3 atorvastatin (Lipitor) 20 mg tablet Take 1 tablet (20 mg total) by mouth daily. 90 tablet 3 calcium carbonate (for_TUMS E-X) 750 mg (300 mg calcium) chewable tablet Chew 1 tablet daily as needed. cyanocobalamin (vitamin B-12) 1,000 mcg tablet Take 1,000 mcg by mouth daily. gabapentin (Neurontin) 100 mg capsule Take 2 capsules (200 mg total) by mouth 3 (three) times a day. 540 capsule 3 lactase (Lactaid) 3,000 Unit tablet Take 6,000 Units by mouth daily. levothyroxine 88 mcg tablet Take 1 tablet (88 mcg total) by mouth daily. 90 tablet 3 lisinopriL 40 mg tablet Take 1 tablet (40 mg total) by mouth daily. 90 tablet 3 Current Facility-Administered Medications on File Prior to Visit Medication Dose Route Frequency Provider Last Rate Last Admin balanced salt solution ophthalmic irrigation 30 mL (BSS) 30 mL right eye Rohan Mallory M.D. 30 mL at 07/31/24 1608 [] bevacizumab intraocular injection 1.25 mg (Avastin) 1.25 mg intravitreal Rohan Mallory M.D. 1.25 mg at 07/31/24 1638 carboxymethylcellulose 1 % ophthalmic solution 1 drop (TheraTears) 1 drop right eye Rohan Mallory M.D. 1 drop at 07/31/24 1608 povidone-iodine 5 % ophthalmic solution 1 drop (Betadine) 1 drop right eye Rohan Mallory M.D. 1 drop at 07/31/24 1608 proparacaine 0.5 % ophthalmic solution 1 drop (Alcaine) 1 drop right eye Rohan Mallory M.D. 1 drop at 07/31/24 1608 sodium chloride 0.9 % injection 3 mL 3 mL intravenous PRRohan Pathak M.D. 3 mL at 07/27/24 1515 tetracaine (PF) 0.5 % ophthalmic solution 1 drop (Altacaine) 1 drop right eye Em Mallory M.D. 1 drop at 07/31/24 1608 documented in this encounter Plan of Treatment Upcoming Encounters Date Type Department Care Team (Latest Contact Info) Description 08/29/2024 10:45 AM CDT Virtual Visit Preoperative Evaluation Center in [address] [phone] Savanna Hough P.A.-C., P.A. [address] [place] [phone] Discharge Disposition: Home or Self Care 08/29/2024 3:40 PM CDT Ancillary Procedure Department of Ophthalmology in [place], [place] [address] [place] [address] 08/29/2024 4:00 PM CDT Hospital Encounter Outpatient Procedure Center in [place], [place] [address] [place] [address] Rohan Pleitez M.D. [address] [place] [phone] 08/30/2024 3:00 PM CDT Telemedicine Department of Patient Education in [place], [place] [address] [place] [address] Savanna Hough P.A.-C., P.A. [address] [place] [phone] 09/05/2024 7:30 AM CDT Hospital Encounter Outpatient Procedure Center in [address] [phone] Adrian Hinojosa D.O. [address] [place] [phone] 09/05/2024 7:30 AM CDT Anesthesia Event Outpatient Procedure Center in [address] [place] [phone] Radha Crawford M.D. [address] [place] [phone] 09/05/2024 7:30 AM CDT - 09/05/2024 9:53 AM CDT Surgery Outpatient Procedure Center in [address] [phone] Adrian Hinojosa D.O. [address] [place] [address], [place] [phone] ARTHROPLASTY REPLACEMENT TOTAL KNEE 09/11/2024 12:30 PM CDT Comprehensive Visit Department of Physical Medicine and Rehabilitation in [address] [facility] [place] [address] Savanna Hough P.A.-C., P.A. [address] [place] [phone] Keke Alexandra, P.T. [address] [place] [phone] 09/18/2024 10:00 AM CDT Office Visit Department of Orthopedic Surgery in [address] [phone] Savanna Hough P.A.-C., P.A. [address] [place] [phone] Discharge Disposition: Home or Self Care 09/28/2024 11:00 AM CDT Appointment Outpatient Procedure Center in [address] [phone] Rohan Pleitez M.D. [address] [place] [address] 11/03/2024 9:20 AM CDT Appointment Department of Laboratory Medicine in [place] [address] [place] [phone] Qian Carias M.D. [address] [place] [phone] 11/06/2024 2:40 PM CDT Comprehensive Visit Department of Family Medicine, [facility], in [place] [address] [place] [phone] Qian Carias M.D. [address] [place] [phone] 11/22/2024 1:30 PM CDT Comprehensive Visit Department of Neurology in [address] [phone] Stuart Bernabe M.D. [address] [place] [phone] Scheduled Procedures Name Priority Associated Diagnoses Date/Ti me ARTHROPLASTY REPLACEMENT TOTAL KNEE Primary Osteoarthritis Knee Right 09/05/2024 7:30 AM CDT documented as of this encounter Visit Diagnoses Diagnosis Primary Osteoarthritis Knee Right- Primary Preoperative Exam- Primary Primary Osteoarthritis Knee Right Hypertensive Chronic Kidney Disease With Stage 1 Through Stage 4 Chronic Kidney Disease, Or Unspecified Chronic Kidney Disease Unspecified Open Wound Left Lower Leg Sequela Unspecified Open Wound Right Lower Leg Sequela Neuropathy Peripheral 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 [address] [place] [phone] PCP - General Internal Medicine 12/28/17 documented as of this encounter
--- OUTSIDE RECORDS SUMMARY | 2024-08-28 14:43 | XMS_ITS | Encounter Summary ---
Author Organization [facility] Address [address] [place] [address] Care Team Providers Care Airflight Attendants Supervisor Name Role Phone Qian Carias M.D. Primary Care Provider [phone] Encounter Details Date Type Department Care Team (Late st Contact Info) Description 07/27/2024 3:20 PM CDT Ancillary Procedure Department of Ophthalmology Social History Tobacco Use Types Packs/Day Years Used Date Smoking Tobacco: Never Smokeless Tobacco: Never Alcohol Use Standard Drinks/Week Comments Yes 1 (1 standard drink = 0.6 oz pur e alcohol) 0-1/week [facility] Utilities Answer Date Recorded In the past 12 months has e [employer] gas, oil, or water [employer] threatened to shut off services in your [...] often do you attend chur ch or nondenominational services? More than 4 times per year 11/16/2020 Do you belong to any clubs o r organizations such as scientologist groups, unions, fraternal or athletic groups, or [...] 07/08/2024 [facility] - Occupational Stress Questionnaire Answer Date [...] your living situation today? I have a [facility] place to live 11/01/2023 Education Answer Date Recorded What is the highest level of school you have completed or the highest degree you have received? Some college, no degree 11/07/2018 Comments No Sex and Gender Information Value Date Recorded Sex Assigned at Female 04/09/2017 3:29 PM GRADE TEACHER Legal Sex Female 8:40 AM GRADE TEACHER Gender Identity Female 04/09/2017 3:29 PM GRADE TEACHER Sexual Orientation Straight 04/09/2017 3: 29 PM GRADE TEACHER documented as of this encounter Plan of Treatment Upcoming Encounters Date Type Department Care Team (Latest Contact Info) Description 08/29/2024 10:45 AM CDT Virtual Visit Preoperative Evaluation Center in [place], [place] [address] [place] [phone] Savanna Hough P.A.-C., P.A. [address] [place] [phone] Discharge Disposition: Home or Self Care 08/29/2024 3:40 PM CDT Ancillary Procedure Department of Ophthalmology in [place], [place] [address] [place] [address] 08/29/2024 4:00 PM CDT Hospital Encounter Outpatient Procedure Center in [place], [place] [address] [place] [address] Rohan Pleitez M.D. [address] [place] [address] 08/30/2024 3:00 PM CDT Telemedicine Department of Patient Education in [place], [place] [address] [place] [address] Savanna Hough P.A.-C., P.A. [address] [place] [phone] 09/05/2024 7:30 AM CDT Hospital Encounter Outpatient Procedure Center in [address] [phone] Adrian Hinojosa D.O. [address] [place] [phone] 09/05/2024 7:30 AM CDT Anesthesia Event Outpatient Procedure Center in [address] [phone] Radha Crawford M.D. [address] [place] [phone] 09/05/2024 7:30 AM CDT - 09/05/2024 9:53 AM CDT Surgery Outpatient Procedure Center in [address] [phone] Adrian Hinojosa D.O. [address] [place] [phone] ARTHROPLASTY REPLACEMENT TOTAL KNEE 09/11/2024 12:30 PM CDT Comprehensive Visit Department of Physical Medicine and Rehabilitation in [address] [place] [phone] Savanna Hough P.A.-C., P.A. [address] [place] [phone] Keke Alexandra P.T. [address] [place] [phone] 09/18/2024 10:00 AM CDT Office Visit Department of Orthopedic Surgery in [address] [phone] Savanna Hough P.A.-C., P.A. [address] [place] [phone] Discharge Disposition: Home or Self Care 09/28/2024 11:00 AM CDT Appointment Outpatient Procedure Center in [address] [phone] Rohan Pleitez M.D. [address] [place] [phone] 11/03/2024 9:20 AM CDT Appointment Department of Laboratory Medicine in [place] [address] [place] [phone] Qian Carias M.D. [address] [place] [phone] 11/06/2024 2:40 PM CDT Comprehensive Visit Department of Family Medicine, [facility], in [place] [address] [place] [phone] Qian Carias M.D. [address] [place] [phone] 11/22/2024 1:30 PM CDT Comprehensive Visit Department of Neurology in [place], [place] [address] [place] [phone] Stuart Bernabe M.D. [address] [place] [address] Scheduled Procedures Name Priority Associated Diagnoses Date/Ti me ARTHROPLASTY REPLACEMENT TOTAL KNEE Primary Osteoarthritis Knee Right 09/05/2024 7:30 AM CDT documented as of this encounter Procedures Procedure Name Priority Date/Time Associated Diagnosis Comments OPHTHALMOLOGY IMAGE EXAM Routine 07/27/2024 3:20 PM CDT documented in this encounter Results * Generic Eye Procedure 200 R-Ophthalmology Image Exam (07/27/2024 3:20 PM CDT) 07/27/2024 3:19 PM CDT Narrative [facility] - 07/27/2024 4:02 PM CDT This order has been created and auto-finalized to support the import of images acquired without order. The clinical documentation to support these images can be found on the encounter that produced images. us Provider Not In System IMG NON RAD IMAGING PROCE DURES Final Result [facility] NA documented in this encounter Visit Diagnoses Not on filedocumented in this encounter Care Teams Airflight Attendants Supervisor Relationship Specialty Start Date End Date Qian Carias M.D. [address] [address] PCP - General Internal Medicine 12/28/17 documented as of this encounter
--- OUTSIDE RECORDS SUMMARY | 2024-08-28 14:43 | XMS_ITS | Encounter Summary ---
Author Organization [facility] Address [address] [place] [address] Care Team Providers Care Processes Chemical Design Engineer Name Role Phone Qian Carias M.D. Primary Care Provider [phone] Encounter Details Date Type Department Care Team (Latest Contact Info) Description 07/31/2024 4:06 PM CDT - 07/31/2024 11:59 PM CDT Hospital Encounter Outpatient Procedure Center in [place], [place] [address] [place] [address] Keyana Gimenez M.D. [address] [place] [address] Discharge Disposition: Home or Self Care Social History Tobacco Use Types Packs/Day Years Used Date Smoking Tobacco: Never Smokeless Tobacco: Never Alcohol Use Standard Drinks/Week Comments Yes 1 (1 standard drink = 0.6 oz pur e alcohol) 0-1/week [facility] Utilities Answer Date Recorded In the [...] How often do you attend chur or lutheran services? More than 4 times per year 11/16/2020 Do you belong to any clubs o r organizations such as tenriism groups, unions, fraternal or athletic groups, or [...] Answer Date Recorded PHQ-2 Score 0 07/08/2024 [facility] [place] of Occupat ional Health - Occupational Stress [...] your living situation today? I have a [facility] place to live 11/01/2023 Education Answer Date Recorded What is the highest level of school you have completed or the highest degree you have received? Some college, no degree 11/07/2018 Comments No Sex and Gender Information Value Date Recorded Sex Assigned at Female 04/09/2017 3:29 PM CHIEF METER READER Legal Sex Female 8:40 AM CHIEF METER READER Gender Identity Female 04/09/2017 3:29 PM CHIEF METER READER Sexual Orientation Straight 04/09/2017 3: 29 PM CHIEF METER READER documented as of this encounter Medications at [...] CDT Virtual Visit Preoperative Evaluation Center in [address] [phone] Savanna Hough P.A.-C., P.A. [address] [place] [address] Discharge Disposition: Home or Self Care 08/29/2024 3:40 PM CDT Ancillary Procedure Department of Ophthalmology in [place], [place] [address] [place] [phone] 08/29/2024 4:00 PM CDT Hospital Encounter Outpatient Procedure Center in [place], [place] [address] [place] [phone] Rohan Pleitez M.D. [address] [place] [phone] 08/30/2024 3:00 PM CDT Telemedicine Department of Patient Education in [place], [place] [address] [place] [phone] Savanna Hough P.A.-C., P.A. [address] [place] [phone] 09/05/2024 7:30 AM CDT Hospital Encounter Outpatient Procedure Center in [place] [address] [facility] [place] [phone] Adrian Hinojosa D.O. [address] [place] [phone] 09/05/2024 7:30 AM CDT Anesthesia Event Outpatient Procedure Center in [address] [phone] Radha Crawford M.D. [address] [place] [phone] 09/05/2024 7:30 AM CDT - 09/05/2024 9:53 AM CDT Surgery Outpatient Procedure Center in [address] [phone] Adrian Hinojosa D.O. [address] [place] [phone] ARTHROPLASTY REPLACEMENT TOTAL KNEE 09/11/2024 12:30 PM CDT Comprehensive Visit Department of Physical Medicine and Rehabilitation in [address] [place] [address] Savanna Hough P.A.-C., P.A. [address] [place] [phone] Keke Alexandra, P.T. [address] [place] [phone] 09/18/2024 10:00 AM CDT Office Visit Department of Orthopedic Surgery in [address] [address] Savanna Hough P.A.-C., P.A. [address] [place] [phone] Discharge Disposition: Home or Self Care 09/28/2024 11:00 AM CDT Appointment Outpatient Procedure Center in [address] [phone] Rohan Pleitez M.D. [address] [place] [phone] 11/03/2024 9:20 AM CDT Appointment Department of Laboratory Medicine in [place] [address] [place] [address] Qian Carias M.D. [address] [place] [phone] 11/06/2024 2:40 PM CDT Comprehensive Visit Department of Family Medicine, [facility], in [place] [address] [place] [address] Qian Carias M.D. [address] [place] [phone] 11/22/2024 1:30 PM CDT Comprehensive Visit Department of Neurology in [address] [phone] Stuart Bernabe M.D. 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 Avastin OD: Lot [id number] Exp 10/27/24 us Keyana Gimenez M.D. OPH CLINIC PROCEDURES Final Result documented in this encounter Visit Diagnoses Not on filedocumented in this encounter Care Teams Processes Chemical Design Engineer Relationship Specialty Start Date End Date Qian Carias M.D. [address] [place] [phone] PCP - General Internal Medicine 12/28/17 documented as of this encounter
--- OUTSIDE RECORDS SUMMARY | 2024-08-28 14:43 | XMS_ITS | Encounter Summary ---
Author Organization [facility] Address [address] [place] [address] Care Team Providers Care Yacht Master Name Role Phone Qian Carias M.D. Primary Care Provider [phone] Encounter Details Date Type Department Care Team (Latest Contact Info) Description 07/31/2024 12:30 PM CDT Ancillary Procedure Department of Ophthalmology in [place], [place] [address] [place] [address] Rohan Pleitez M.D. 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 More than 4 times per year 11/16/2020 Do you belong to any clubs o r organizations such as confucianist groups, unions, fraternal or athletic groups, or [...] Answer Date Recorded PHQ-2 Score 0 07/08/2024 [facility] [place] of Occupat ional Health - Occupational Stress [...] your living situation today? I have a [facility] place to live 11/01/2023 Education Answer Date Recorded What is the highest level of school you have completed or the highest degree you have received? Some college, no degree 11/07/2018 Comments No Sex and Gender Information Value Date Recorded Sex Assigned at Female 04/09/2017 3:29 PM SPARKER AND PATCHER Legal Sex Female 8:40 AM SPARKER AND PATCHER Gender Identity Female 04/09/2017 3:29 PM SPARKER AND PATCHER Sexual Orientation Straight 04/09/2017 3: 29 PM SPARKER AND PATCHER documented as of this encounter Plan of Treatment Upcoming Encounters Date Type Department Care Team (Latest Contact Info) Description 08/29/2024 10:45 AM CDT Virtual Visit Preoperative Evaluation Center in [place], [place] [address] [place] [phone] Savanna Hough P.A.-C., P.A. [address] [place] [phone] Discharge Disposition: Home or Self Care 08/29/2024 3:40 PM CDT Ancillary Procedure Department of Ophthalmology in [place], [place] [address] [place] [phone] 08/29/2024 4:00 PM CDT Hospital Encounter Outpatient Procedure Center in [place], [place] [address] [place] [phone] Rohan Pleitez M.D. [address] [place] [phone] 08/30/2024 3:00 PM CDT Telemedicine Department of Patient Education in [place], [place] [address] [place] [phone] Savanna Hough P.A.-C., P.A. [address] [place] [phone] 09/05/2024 7:30 AM CDT Hospital Encounter Outpatient Procedure Center in [address] [phone] Adrian Hinojosa D.O. [address] [place] [phone] 09/05/2024 7:30 AM CDT Anesthesia Event Outpatient Procedure Center in [address] [phone] Radha Crawford M.D. [address] [place] [phone] 09/05/2024 7:30 AM CDT - 09/05/2024 9:53 AM CDT Surgery Outpatient Procedure Center in [address] [phone] Adrian Hinojosa D.O. [address] [place] [phone] ARTHROPLASTY REPLACEMENT TOTAL KNEE 09/11/2024 12:30 PM CDT Comprehensive Visit Department of Physical Medicine and Rehabilitation in [place] [address] [place] [address] Savanna Hough P.A.-C., P.A. [address] [place] [phone] Keke Alexandra P.T. [address] [place] [phone] 09/18/2024 10:00 AM CDT Office Visit Department of Orthopedic Surgery in [address] [phone] Savanna Hough P.A.-C., P.A. [address] [place] [phone] Discharge Disposition: Home or Self Care 09/28/2024 11:00 AM CDT Appointment Outpatient Procedure Center in [address] [phone] Rohan Pleitez M.D. [address] [place] [phone] 11/03/2024 9:20 AM CDT Appointment Department of Laboratory Medicine in [place] [address] [place] [address] Qian Carias M.D. [address] [place] [phone] 11/06/2024 2:40 PM CDT Comprehensive Visit Department of Family Medicine, [facility], in [place] [address] [place] [address] Qian Carias M.D. [address] [place] [phone] 11/22/2024 1:30 PM CDT Comprehensive Visit Department of Neurology in [place], [place] [address] [place] [phone] Stuart Bernabe M.D. 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 [address] [place] [phone] PCP - General Internal Medicine 12/28/17 documented as of this encounter
--- OUTSIDE RECORDS SUMMARY | 2024-08-28 14:43 | XMS_ITS | Encounter Summary ---
Author Organization [facility] Address [address] [place] [address] Care Team Providers Care Pump Servicer Name Role Phone Qian Carias M.D. Primary Care Provider [phone] Reason for Referral * Outpatient (Routine) - Authorized Specialty Diagnoses / Procedures Referred By Zain gold Referred To Contact Ophthalmology Rohan Pleitez M.D. [address] [place] [address] Phone: tel: fax: [facility] Referral ID Status Reason Start Date Expiration Date V isits Requested Visits Authorized [id number] Authorized 07/31/2024 01/30/2026 1 1 Scheduling Instructions Plan for Injections 07/31/24: Avastin RIGHT for CRVO/CME TODAY Follow up for 3 more injections every 4 (strict) weeks Follow up: 4-5 weeks after the last injection with OCT both eyes (hold injection slot) Injection details: Kemar Elizabeth or Sophie injections * Outpatient (Routine) - Authorized Specialty Diagnoses / Procedures Referred By Zain gold Referred To Contact Diagnoses 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 [address] [place] [phone] Phone: tel: fax: [facility] Referral ID Status Reason Start Date Expiration Date Visits Re quested Visits Authorized [id number] Closed 06/30/2024 12/30/2025 1 1 Encounter Details Date Type Department Care Team (Latest Contact Info) Description 07/31/2024 3:45 PM CDT Comprehensive Visit Department of Ophthalmology in [place], [place] [address] [place] [address] Rohan Pleitez M.D. 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) (Primary Dx); Chronic Kidney Disease (CKD), Stage 3a Glomerular Filtration Rate (GFR) 45 To 59 (HCC); Hypertensive Chronic Kidney Disease With Stage 1 Through Stage 4 Chronic Kidney Disease, Or Unspecified Chronic Kidney Disease Social History Tobacco Use Types Packs/Day Years Used Date Smoking Tobacco: Never Smokeless Tobacco: Never Alcohol Use Standard Drinks/Week Comments Yes 1 (1 standard drink = 0.6 oz pur e alcohol) 0-1/week [facility] Utilities Answer Date Recorded In the past 12 months has [employer] electric, gas, oil, or water company threatened [...] How often do you attend chur or holiness services? More than 4 times per year 11/16/2020 Do you belong to any clubs o r organizations such as restorationism groups, unions, fraternal or athletic groups, or [...] Answer Date Recorded PHQ-2 Score 0 07/08/2024 [facility] of Occupat ional Health - [...] Sex Assigned at Female 04/09/2017 3:29 PM IDEA MAN Legal Sex Female 8:40 AM IDEA MAN Gender Identity Female 04/09/2017 3:29 PM IDEA MAN Sexual Orientation Straight 04/09/2017 3: 29 PM IDEA MAN documented as of this encounter Progress Notes * Rohan Pleitez M.D. - 07/31/2024 3:45 PM CDT This patient was referred by Sacha Suárez M.D. for central retinal vein occlusion right eye. Was in ER 06/29/[address] Suárez note, seen 06/30/[address] Suárez and was HM. She woke up a few days before going to ER and had lost vision in right eye. 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 No history ofinjections, laser or prior intervention. Significant macular ischemia and ++CME. Hypertension now controlled per patient at home (which is accurate). Had history of provoked PE (long car drive) was on anticoagulation and then off due to it being provoked. Discussed r/b/a to antiVEGF and she elects to proceed with anti-VEGF as below. Retinal Injection Plan Plan for Injections 07/31/24: Avastin RIGHT for CRVO/CME TODAY Follow up for 3 more injections every 4 (strict) weeks Follow up: 4-5 weeks after the last injection with OCT both eyes (hold injection slot) Injection details: [facility] injections documented in this encounter Miscellaneous Notes * Addendum Note - Leela Peraza, C.O.A. - 07/31/2024 3:45 PM CDTAddended by: LEELA PERAZA on: 07/31/2024 05:13 PM Modules accepted: Orders documented in this encounter Plan of Treatment Upcoming Encounters Date Type Department Care Team (Latest Contact Info) Description 08/29/2024 10:45 AM CDT Virtual Visit Preoperative Evaluation Center in [address] [phone] Savanna Hough P.A.-C., P.A. [address] [place] [phone] Discharge Disposition: Home or Self Care 08/29/2024 3:40 PM CDT Ancillary Procedure Department of Ophthalmology in [place], [place] [address] [place] [address] 08/29/2024 4:00 PM CDT Hospital Encounter Outpatient Procedure Center in [place], [place] [address] [place] [address] Rohan Pleitez M.D. [address] [place] [address] 08/30/2024 3:00 PM CDT Telemedicine Department of Patient Education in [place], [place] [address] [place] [address] Savanna Hough P.A.-C., P.A. [address] [place] [phone] 09/05/2024 7:30 AM CDT Hospital Encounter Outpatient Procedure Center in [address] [phone] Adrian Hinojosa D.O. [address] [place] [phone] 09/05/2024 7:30 AM CDT Anesthesia Event Outpatient Procedure Center in [address] [phone] Radha Crawford M.D. [address] [place] [phone] 09/05/2024 7:30 AM CDT - 09/05/2024 9:53 AM CDT Surgery Outpatient Procedure Center in [address] [phone] Adrian Hinojosa D.O. [address] [place] [phone] ARTHROPLASTY REPLACEMENT TOTAL KNEE 09/11/2024 12:30 PM CDT Comprehensive Visit Department of Physical Medicine and Rehabilitation in [place], [place] [address] [place] [address] [place] [address] Savanna Hough P.A.-C., P.A. [address] [place] [phone] Keke Alexandra P.T. [address] [place] [phone] 09/18/2024 10:00 AM CDT Office Visit Department of Orthopedic Surgery in [address] [phone] Savanna Hough P.A.-C., P.A. [address] [place] [phone] Discharge Disposition: Home or Self Care 09/28/2024 11:00 AM CDT Appointment Outpatient Procedure Center in [address] [phone] Rohan Pleitez M.D. [address] [place] [phone] 11/03/2024 9:20 AM CDT Appointment Department of Laboratory Medicine in [place] [address] [place] [phone] Qian Carias M.D. [address] [place] [phone] 11/06/2024 2:40 PM CDT Comprehensive Visit Department of Family Medicine, [facility], in [place] [address] [place] [phone] Qian Carias M.D. [address] [place] [phone] 11/22/2024 1:30 PM CDT Comprehensive Visit Department of Neurology in [place], [place] [address] [place] [address] Stuart [place] [address] Scheduled Orders Name Type Priority Associated Diagnoses Order Schedule Intravitreal Injection, Pharmacologic Agent - OD - Right Eye Ophthalmology Routine 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) q4wks for 3 Occurrences starting 07/31/2024 until 08/01/2027 Intravitreal Injection, Pharmacologic Agent - OD - Right Eye - [place] Scheduling Ophthalmology Routine 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) w4wks for 1 Occurrences starting 07/31/2024 until 10/30/2025 Optical Coherence Tomography - Macula/Retina - OU - Both Eyes Ophthalmology Routine 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) 1 Occurrences starting 07/31/2024 until 10/30/2025 Scheduled Procedures Name Priority Associated Diagnoses Date/Ti me ARTHROPLASTY REPLACEMENT TOTAL KNEE Primary Osteoarthritis Knee Right 09/05/2024 7:30 AM CDT Scheduled Referrals Name Type Priority Associated Diagnoses Order Schedule Ophthalmology office visit (clinic): Injection Outpatient Referral Routine 1 Occurrences starting 07/31/2024 until 10/30/2025 documented as of this encounter Visit Diagnoses Diagnosis Primary Osteoarthritis Knee Right- Primary 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 [address] [place] [phone] PCP - General Internal Medicine 12/28/17 documented as of this encounter
--- OUTSIDE RECORDS SUMMARY | 2024-08-28 14:43 | XMS_ITS | Encounter Summary ---
Author Organization [facility] Address [address] [place] [address] Care Team Providers Care Automobile Engine Assembler Name Role Phone Qian Carias M.D. Primary Care Provider [phone] Encounter Details Date Type Department Care Team (Late st Contact Info) Description 07/27/2024 2:45 PM CDT Ancillary Procedure Department of Ophthalmology in [place], [place] [address] [place] [address] Rohan Pleitez M.D. [address] [place] [phone] Social History Tobacco Use Types Packs/Day Years Used Date Smoking Tobacco: Never Smokeless Tobacco: Never Alcohol Use Standard Drinks/Week Comments Yes 1 (1 standard drink = 0.6 oz pur e alcohol) 0-1/week [facility] Utilities Answer Date Recorded In the past 12 months has [employer], gas, oil, or water [employer] threatened to shut off services in your [...] How often do you attend chur or amish services? More than 4 times per year [...] Answer Date Recorded PHQ-2 Score 0 07/08/2024 [facility] - [...] your living situation today? I have a [facility] place to live 11/01/2023 Education Answer Date Recorded What is the highest level of school you have completed or the highest degree you have received? Some college, no degree 11/07/2018 Comments No Sex and Gender Information Value Date Recorded Sex Assigned at Female 04/09/2017 3:29 PM SURVEYING CREW RODMAN Legal Sex Female 8:40 AM SURVEYING CREW RODMAN Gender Identity Female 04/09/2017 3:29 PM SURVEYING CREW RODMAN Sexual Orientation Straight 04/09/2017 3: 29 PM SURVEYING CREW RODMAN documented as of this encounter Plan of Treatment Upcoming Encounters Date Type Department Care Team (Latest Contact Info) Description 08/29/2024 10:45 AM CDT Virtual Visit Preoperative Evaluation Center in [place], [place] [address] [place] [phone] Savanna Hough P.A.-C., P.A. [address] [place] [phone] Discharge Disposition: Home or Self Care 08/29/2024 3:40 PM CDT Ancillary Procedure Department of Ophthalmology in [place], [place] [address] [place] [address] 08/29/2024 4:00 PM CDT Hospital Encounter Outpatient Procedure Center in [place], [place] [address] [place] [address] Rohan Pleitez M.D. [address] [place] [phone] 08/30/2024 3:00 PM CDT Telemedicine Department of Patient Education in [place], [place] [address] [place] [phone] Savanna Hough P.A.-C., P.A. [address] [place] [phone] 09/05/2024 7:30 AM CDT Hospital Encounter Outpatient Procedure Center in [address] [phone] Adrian Hinojosa D.O. [address] [place] [phone] 09/05/2024 7:30 AM CDT Anesthesia Event Outpatient Procedure Center in [address] [phone] Radha Crawford M.D. [address] [place] [phone] 09/05/2024 7:30 AM CDT - 09/05/2024 9:53 AM CDT Surgery Outpatient Procedure Center in [address] [phone] Adrian Hinojosa D.O. [address] [place] [phone] ARTHROPLASTY REPLACEMENT TOTAL KNEE 09/11/2024 12:30 PM CDT Comprehensive Visit Department of Physical Medicine and Rehabilitation in [place], [place] [address] [place], [place] [phone] Savanna Hough P.A.-C., P.A. [address] [place] [phone] Keke Alexandra P.T. [address] [place] [phone] 09/18/2024 10:00 AM CDT Office Visit Department of Orthopedic Surgery in [address] [phone] Savanna Hough P.A.-C., P.A. [address] [place] [phone] Discharge Disposition: Home or Self Care 09/28/2024 11:00 AM CDT Appointment Outpatient Procedure Center in [address] [phone] Rohan Pleitez M.D. [address] [place] [phone] 11/03/2024 9:20 AM CDT Appointment Department of Laboratory Medicine in [place], [place] [address] [place] [phone] Qian Carias M.D. [address] [place] [phone] 11/06/2024 2:40 PM CDT Comprehensive Visit Department of Family Medicine, [facility], in [place] [id number] [place] [address] Qian Carias M.D. [address] [place] [phone] 11/22/2024 1:30 PM CDT Comprehensive Visit Department of Neurology in [place], [place] [address] [place] [phone] Stuart Bernabe M.D. [address] [place] [address] Scheduled Procedures Name Priority Associated Diagnoses Date/Ti [...] EXAM documented in this encounter Visit Diagnoses Not on filedocumented in this encounter Care Teams Automobile Engine Assembler Relationship Specialty Start Date End Date Qian Carias M.D. [address] [address] PCP - General Internal Medicine 12/28/17 documented as of this encounter
--- OUTSIDE RECORDS SUMMARY | 2024-08-28 14:43 | XMS_ITS | Encounter Summary ---
Author Organization [facility] Address [address] [place] [address] Care Team Providers Care Geodetic Advisor Name Role Phone Qian Carias M.D. 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 200 [place] [address] Phone: tel: fax: [facility] Referral ID Status Reason Start Date Expiration Date Visits Re quested Visits Authorized [id number] Closed 07/31/2024 04/11/2025 1 1 Reason for Visit * Outpatient (Routine) - Closed Specialty Diagnoses / Procedures Referred By Zain gold Referred To Contact Diagnoses 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) Procedures Intravitreal Injection, Pharmacologic Agent - OD - Right Eye - [place] Scheduling DC BEVACIZUMAB INJECTION Rohan Pleitez M.D. 200 [place] [address] Phone: tel: fax: [facility] Referral ID Status Reason Start Date Expiration Date Visits Re quested Visits Authorized [id number] Closed 07/31/2024 04/11/2025 1 1 Encounter Details Date Type Department Care Team (Latest Contact Info) Description 07/31/2024 3:50 PM CDT - 07/31/2024 4:05 PM CDT Hospital Encounter Outpatient Procedure Center in [place], [place] [address] [place] [address] Rohan Pleitez M.D. [address] [place] [address] 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) Discharge Disposition: Home or Self Care Social History Tobacco Use Types Packs/Day Years Used Date Smoking Tobacco: Never Smokeless Tobacco: Never Alcohol Use Standard Drinks/Week Comments Yes 1 (1 standard drink = 0.6 oz pur e alcohol) 0-1/week [facility] Utilities Answer Date Recorded In the past 12 months has [employer], gas, oil, or water [employer] threatened to shut off services in your [...] week 11/16/2020 How often do you attend [facility] or christianity services? More than 4 times per year 11/16/2020 Do you belong to any clubs o r organizations such as taoism groups, unions, fraternal or athletic groups, or [...] 07/08/2024 [facility]at ional [facility] - Occupational Stress [...] your living situation today? I have a [facility] place to live 11/01/2023 Education Answer Date Recorded What is the highest level of school you have completed or the highest degree you have received? Some college, no degree 11/07/2018 Comments No Sex and Gender Information Value Date Recorded Sex Assigned at Female 04/09/2017 3:29 PM TRAVEL AGENT Legal Sex Female 8:40 AM TRAVEL AGENT Gender Identity Female 04/09/2017 3:29 PM TRAVEL AGENT Sexual Orientation Straight 04/09/2017 3: 29 PM TRAVEL AGENT documented as of this encounter Medications at [...] CDT Virtual Visit Preoperative Evaluation Center in [address] [phone] Savanna Hough P.A.-C., P.A. [address] [place] [phone] Discharge Disposition: Home or Self Care 08/29/2024 3:40 PM CDT Ancillary Procedure Department of Ophthalmology in [place], [place] [address] [place] [phone] 08/29/2024 4:00 PM CDT Hospital Encounter Outpatient Procedure Center in [place], [place] [address] [place] [phone] Rohan Pleitez M.D. [address] [place] [phone] 08/30/2024 3:00 PM CDT Telemedicine Department of Patient Education in [place], [place] [address] [place] [phone] Savanna Hough P.A.-C., P.A. [address] [place] [phone] 09/05/2024 7:30 AM CDT Hospital Encounter Outpatient Procedure Center in [address] [phone] Adrian Hinojosa D.O. [address] [place] [phone] 09/05/2024 7:30 AM CDT Anesthesia Event Outpatient Procedure Center in [address] [phone] Radha Crawford M.D. [address] [place] [phone] 09/05/2024 7:30 AM CDT - 09/05/2024 9:53 AM CDT Surgery Outpatient Procedure Center in [address] [address] Adrian Hinojosa D.O. [address] [place] [address] ARTHROPLASTY REPLACEMENT TOTAL KNEE 09/11/2024 12:30 PM CDT Comprehensive Visit Department of Physical Medicine and Rehabilitation in [address] [place] [address] Savanna Hough P.A.-C., P.A. [address] [place] [phone] Keke Alexandra, P.TJovany [address] [place] [phone] 09/18/2024 10:00 AM CDT Office Visit Department of Orthopedic Surgery in [address] [phone] Savanna Hough P.A.-C., P.A. [address] [place] [phone] Discharge Disposition: Home or Self Care 09/28/2024 11:00 AM CDT Appointment Outpatient Procedure Center in [address] [phone] Rohan Pleitez M.D. [address] [place] [address] 11/03/2024 9:20 AM CDT Appointment Department of Laboratory Medicine in [place], [place] [address] [place] [address] Qian Carias M.D. [address] [place] [phone] 11/06/2024 2:40 PM CDT Comprehensive Visit Department of Family Medicine, [facility], in [place], [place] [address] [place] [address] Qian Carias M.D. [address] [place] [phone] 11/22/2024 1:30 PM CDT Comprehensive Visit Department of Neurology in [address] [phone] Stuart Bernabe M.D. [address] [place] [phone] Scheduled Procedures Name Priority Associated Diagnoses Date/Ti [...] 25 mg/mL Route: intravitreal, Site: Right Eye [facility]: 34093-474-99 Balanced salt solution irrigation to injected eye [...] schedule given if requested. Avastin OD: Lot [id number] Exp 10/27/24 us Keyana Gimenez M.D. 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) Primary Osteoarthritis Knee Right documented in this encounter Administered Medications Active Administered Medications - up to 3 most recent administrations Medication Order MAR Action Action Date Dose Rate Site balanced salt solution ophthalmic irrigation 30 mL (BSS) 30 mL, right eye, As needed, DIRECTED OPHTHALMIC IN OR, Starting on Wed07/31/24 at 1544, For 365 daysIndications: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) Given 07/31/2024 4:08 PM CDT 30 mL carboxymethylcellulose 1 % ophthalmic solution 1 drop (TheraTears) 1 drop, right eye, As needed, dry eyes, DIRECTED OPHTHALMIC IN OR, Starting on Wed07/31/24 at 1544, For 365 daysIndications: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) Given 07/31/2024 4:08 PM CDT 1 drop povidone-iodine 5 % ophthalmic solution 1 drop (Betadine) 1 drop, right eye, As needed, irrigation, DIRECTED OPHTHALMIC IN OR, Starting on Wed07/31/24 at 1544, For 365 days, Irrigate ocular and periocular region and leave for 2 mins; then flush with sterile saline solution.Indications: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) Given 07/31/2024 4:08 PM CDT 1 drop proparacaine 0.5 % ophthalmic solution 1 drop (Alcaine) 1 drop, right eye, As needed, DIRECTED OPHTHALMIC IN OR, Starting on Wed07/31/24 at 1544, For 365 daysIndications: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) Given 07/31/2024 4:08 PM CDT 1 drop tetracaine (PF) 0.5 % ophthalmic solution 1 drop (Altacaine) 1 drop, right eye, As needed, DIRECTED OPHTHALMIC IN OR, Starting on Wed07/31/24 at 1544, For 365 daysIndications: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) Given 07/31/2024 4:08 PM CDT 1 drop Inactive Administered Medications - up to 3 most recent administrations Medication Order MAR Action Action Date Dose Rate Site bevacizumab intraocular injection 1.25 mg (Avastin) 1.25 mg, intravitreal, As needed, DIRECTED OPHTHALMIC IN OR, Starting on Wed07/31/24 at 1638, Inject into right eye.Indications: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 [address] [place] [phone] PCP - General Internal Medicine 12/28/17 documented as of this encounter
--- OUTSIDE RECORDS SUMMARY | 2024-08-28 14:43 | XMS_ITS | Encounter Summary ---
Author Organization [facility] Address [address] [place] [address] Care Team Providers Care Procurement Cost Coordinator Name Role Phone Qian Carias M.D. Primary Care Provider [phone] Reason for Referral * Outpatient (Routine) - Authorized Specialty Diagnoses / Procedures Referred By Zain gold Referred To Contact Qian Carias M.D. [address] [place] [address] Phone: tel: fax: [facility] Region Referral ID Status Reason Start Date Expiration Date V isits Requested Visits Authorized [id number] Authorized 07/19/2024 01/18/2026 1 1 Scheduling Instructions Nurse AWV Do not schedule prior to due date to ensure insurance coverage Visit: Medicare Annual Wellness Never done. * Outpatient (Routine) - Authorized Specialty Diagnoses / Procedures Referred By Zain gold Referred To Contact Diagnoses Screening Mammogram Breast Cancer Procedures BI Breast Screening Bilateral with Tomosynthesis Qian Carias M.D. [address] [place] [address] Phone: tel: fax: [facility] Region Referral ID Status Reason Start Date Expiration Date V isits Requested Visits Authorized [id number] Authorized 07/19/2024 10/19/2025 1 1 Encounter Details Date Type Department Care Team (Late st Contact Info) Description 07/19/2024 Orders Only [facility] PCP [facility] Qian Carias M.D. [address] [place] [address] Screening Mammogram Breast Cancer Social History Tobacco Use Types Packs/Day Years Used Date Smoking Tobacco: Never Smokeless Tobacco: Never Alcohol Use Standard Drinks/Week Comments Yes 1 (1 standard drink = 0.6 oz pur e alcohol) 0-1/week [facility] Utilities Answer Date Recorded In the past 12 months has th e [employer], gas, oil, or water [employer] threatened to shut off services in your [...] How often do you attend chur or restoration services? More than 4 times per year [...] Answer Date Recorded PHQ-2 Score 0 07/08/2024 [facility] - [facility] Questionnaire Answer Date Recorded [...] living situation today? I have a [facility] place to live 11/01/2023 Education Answer Date Recorded What is the highest level of school you have completed or the highest degree you have received? 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 [address] [place] [phone] Discharge Disposition: Home or Self Care 08/29/2024 3:40 PM CDT Ancillary Procedure Department of Ophthalmology in [place], [place] [address] [place] [phone] 08/29/2024 4:00 PM CDT Hospital Encounter Outpatient Procedure Center in [place], [place] [address] [place] [phone] Rohan Pleitez M.D. [address] [place] [phone] 08/30/2024 3:00 PM CDT Telemedicine Department of Patient Education in [place], [place] [address] [place] [phone] Savanna Hough P.A.-C., P.A. [address] [place] [phone] 09/05/2024 7:30 AM CDT Hospital Encounter Outpatient Procedure Center in [place] [address] [place] [phone] Adrian Hinojosa D.O. [address] [place] [phone] 09/05/2024 7:30 AM CDT Anesthesia Event Outpatient Procedure Center in [address] [phone] Radha Crawford M.D. [address] [place] [phone] 09/05/2024 7:30 AM CDT - 09/05/2024 9:53 AM CDT Surgery Outpatient Procedure Center in [address] [phone] Adrian Hinojosa D.O. [address] [place] [phone] ARTHROPLASTY REPLACEMENT TOTAL KNEE 09/11/2024 12:30 PM CDT Comprehensive Visit Department of Physical Medicine and Rehabilitation in [place] [address] [place] [address] Savanna Hough P.A.-C., P.A. [address] [place] [phone] Keke Alexandra, P.T. [address] [place] [phone] 09/18/2024 10:00 AM CDT Office Visit Department of Orthopedic Surgery [place] [address] [place] [phone] Savanna Hough P.A.-C., P.A. [address] [place] [phone] Discharge Disposition: Home or Self Care 09/28/2024 11:00 AM CDT Appointment Outpatient Procedure Center in [address] [phone] Rohan Pleitez M.D. [address] [place] [phone] 11/03/2024 9:20 AM CDT Appointment Department of Laboratory Medicine in [address] [place] [address] Qian Carias M.D. [address] [place] [phone] 11/06/2024 2:40 PM CDT Comprehensive Visit Department of Family Medicine, [facility], in [address] [place] [address] Qian Carias M.D. [address] [place] [phone] 11/22/2024 1:30 PM CDT Comprehensive Visit Department of Neurology in [address] [phone] Stuart Bernabe M.D. [address] [place] [phone] Scheduled Orders Name Type Priority Associated Diagnoses Order Schedule BI Breast Screening Bilateral with Tomosynthesis Imaging RAD - Routine (most inpatients and all outpatients) Screening Mammogram Breast Cancer Expected: 08/02/2024, Expires: 01/05/2025 Scheduled Procedures Name Priority Associated Diagnoses Date/Ti me ARTHROPLASTY REPLACEMENT TOTAL KNEE Primary Osteoarthritis Knee Right 09/05/2024 7:30 AM CDT Scheduled Referrals Name Type Priority Associated Diagnoses Orde r Schedule Primary Care nurse visit (clinic) - [facility] Region; Medicare Annual Wellness Outpatient Referral Routine Expected: 08/16/2024, Expires: 01/05/2025 documented as of this encounter Visit Diagnoses Diagnosis Primary Osteoarthritis Knee Right- Primary Screening Mammogram Breast Cancer Primary Osteoarthritis Knee Right documented in this encounter Care Teams Procurement Cost Coordinator Relationship Specialty Start Date End Date Qian Carias M.D. [address] [place] [phone] PCP - General Internal Medicine 12/28/17 documented as of this encounter
[2024-08-28 14:55] LABS: Albumin* 4.4 g/dL (3.3-5.0); Chloride* 108 mmol/L (96-114)
[2024-08-28 14:56] LABS: Potassium* 4.4 mmol/L (3.6-5.1); Sodium* 142 mmol/L (135-149)
[2024-08-28 14:58] LABS: Alanine Aminotransferase* 15 U/L (4-35); Alkaline Phosphatase* 61 U/L (40-150); Anion Gap 9 mEq/L (7-15); Aspartate Amino Transferase* 35 U/L (12-35); Bilirubin Total* 0.7 mg/dL (0.1-1.5); Blood Urea Nitrogen* 19 mg/dL (7-30); Carbon Dioxide* 25 mmol/L (20-32); Est. Creatinine Clearance* 53.37; Estimated Glomerular Filt Rate 59 ml/min; Total Protein* 7.5 g/dL (6.0-8.3)
[2024-08-28 14:59] LABS: Calcium* 9.6 mg/dL (8.4-10.6); Glucose* 115 mg/dL (60-115); Magnesium* 2.2 mg/dL (1.5-2.6)
[2024-08-28 15:01] LABS: Ethanol* < 0.01 % (0.01-0.03); INR 1.05 (0.91-1.10); Prothrombin Time 14.5 Seconds
[2024-08-28 15:02] LABS: Partial Thromboplastin Time* 24 Seconds (23-33)
[2024-08-28 15:08] LABS: Troponin I* 0.02 ng/mL (0.01-0.04)
[2024-08-28 15:12] LABS: Basophils Absolute Auto 0.03 K/uL (0.00-0.30); Basophils Percent Auto 0.4 % (0.0-3.0); Eosinophils Absolute Auto 0.08 K/uL (0.00-0.50); Eosinophils Percent Auto 1.2 % (0.0-7.0); Hematocrit 44.3 % (33.0-51.0); Hemoglobin* 14.2 gm/dL (12.0-16.0); Immature Granulocytes Abs Auto 0.02 K/uL (0.00-0.30); Immature Granulocytes Pct Auto 0.3 %; Lymphocytes Absolute Auto 1.58 K/uL (0.90-2.90); Lymphocytes Percent Auto 23.4 % (20-44); Mean Corpuscular HGB Conc 32 gm/dL (32-36); Mean Corpuscular Hemoglobin 32 pg (26-34); Mean Corpuscular Volume 101 fL (80-100); Monocytes Percent Auto 7.8 % (0.0-11.0); NT Pro B Type NatriureticPept* 3690 pg/mL; Neutrophils Absolute Auto 4.52 K/uL (1.7-7.0); Neutrophils Percent Auto 66.9 % (42.0-72.0); Platelet Count* 236 K/uL (140-440); RDW Coefficient of Variation % 11.9 % (11.5-15.5); Red Blood Count 4.39 m/uL (4.00-5.20); White Blood Count* 6.76 K/uL (4.50-11.00)
[2024-08-28 15:13] LABS: Slide Review Reflex No
[2024-08-28 15:15] LABS: D Dimer Quantitative* 1.75 ug/ml (0.00-0.50)
[2024-08-28] MEDS: METOPROLOL TARTRATE 25 MG TABLET PO ×2 (15:16→18:02)
--- NOTE | 2024-08-28 15:28 | CRLHL7_ITS ---
For Patients: As a result of the Century Cures Act, medical imaging exams and procedure reports are released immediately into your electronic medical record. You may view this report before your referring provider. If you have questions, please contact your health care provider. INDICATION: Syncope. Elevated D-dimer. Atrial fibrillation. TECHNIQUE: CT chest pulmonary angiogram acquired with 95 cc of Isovue 370 IV contrast. Sagittal, coronal and maximum intensity projection reformatted images submitted for review. COMPARISON: None. FINDINGS: Cardiovascular structures: Small amount of subsegmental nonocclusive right lower lobe pulmonary embolus, for example on axial image 133 of series 4. Aortic atherosclerosis and tortuosity. Thoracic aorta is normal in caliber. Coronary artery calcifications. Heart size is within normal limits. Mediastinum and belinda: No pathologic lymphadenopathy. Lungs: No pneumothorax. Central airways are patent. Posterior right lower lobe 12 mm nodular density on image 167 of series 4. Bibasilar scarring or atelectasis. Lungs otherwise clear. Pleura and pericardium: No effusions. Chest wall and axilla: Unremarkable. Bones: Degenerative changes. No acute or suspicious osseous abnormality. Upper abdomen: Diverticulosis of the visualized colon. Visualized upper abdomen is otherwise unremarkable. IMPRESSION: 1. Small amount of subsegmental right lower lobe pulmonary embolus. 2. Right lower lobe 12 mm nodule should be further evaluated with chest CT in [address] Morales by telephone at 4:33 p.m. on 08/28/2024. Dictated by Wilber Barrientos MD @ 08/28/2024 4:35:06 PM Please note that all CT scans at this facility use dose modulation, iterative reconstruction, and/or weight-based dosing when appropriate to reduce radiation dose to as low as reasonably achievable. Dictated by: Wilber Barrientos MD @ 08/28/2024 16:35:35 (Electronically Signed)
[2024-08-28 15:42] LABS: TSH With Reflex to FT4* 0.188 uIU/mL (0.270-4.200)
[2024-08-28 16:29] LABS: Free T4 Free Thyroxine* 1.43 ng/dL (0.70-1.85)
[2024-08-28] MEDS: HEPARIN 25,000 UNIT/500 ML BAG 30 UNIT IV (18:26)
[2024-08-28] MEDS: HEPARIN 5,000 UNIT/0.5 ML INJ 7300 UNIT IVP (18:27)
== END 2024-08-28 21:15 | disposition short-term general hospital (02) ==
PROVIDERS: Family Medicine; Emergency Provider Family Medicine
DX: I26.99 Other pulmonary embolism without acute cor pulmonale (principal); I48.91 Unspecified atrial fibrillation; R55 Syncope and collapse; I13.0 Hypertensive heart and chronic kidney disease with heart failure and stage 1 through stage 4 chronic kidney disease, or unspecified chronic kidney disease; N18.9 Chronic kidney disease, unspecified; Z79.899 Other long term (current) drug therapy
CPT/HCPCS: 36415; 70450; 71045; 71275; 80053; 82077; 83605; 83735; 83880; 84439; 84443; 84484; 85025; 85027; 85379; 85610; 85730; 93005; 94761; 96361; 96374; 96376; 99285; A9270; J1644; J7030; Q9967

== ENCOUNTER 2024-08-28 20:50 | Outpatient (CLI) | payer MEDICARE, SELFPAY | END 2024-08-28 20:51 | disposition home or self-care (01) | LOC: AMB 08-31 09:36 | PROVIDERS: Visit Provider Family Medicine | DX: R55 Syncope and collapse (principal); I49.9 Cardiac arrhythmia, unspecified | CPT/HCPCS: A0425; A0434 ==